=== PATIENT | female | born 1980 | race Caucasian/White ===

== ENCOUNTER → 2018-01-22 09:50 | Outpatient (CLI) | payer OTHER, SELFPAY ==
--- NOTE | 2018-01-22 09:58 | FL_ITS ---
FL upper GI small bowel HISTORY: Diarrhea, sensation of food sitting in throat intermittently ITS.REASON: ESOPHAGEAL SPASM ORDERING PHYSICIAN: Erick Brown MD PATIENT AGE: 37 years Comparison: None FINDINGS: The esophagus, stomach, and duodenum have an unremarkable appearance. Spot films of the cervical esophagus while swallowing show minimal posterior indentation of the barium column at the C5-6 level secondary to ossific spurring at the C5-6 disc space otherwise sulci motility was normal. There is a small sliding hiatal hernia but there is no significant GE reflux seen during the exam. The stomach was well-distended with barium and air and show no intrinsic abnormality. There is no gastric or duodenal ulcer. The duodenal sweep appear normal. There was extremely rapid transit of barium through the small bowel reaching the cecum and ascending colon by the timeout was done with fluoroscopy for the upper GI portion of the exam. The patient was given additional barium and follow-up films showed mildly dilated loops of proximal and mid small bowel. The terminal ileum appear normal and the appendix was opacified with barium and appears normal. There is apparent the ascending and proximal transverse colon. There is mild tenderness to palpation over the ileocecal junction and in the upper mid abdomen.. FLUOROSCOPY TIME : 4 minutes and 27 seconds. IMPRESSION: 1. Minimal posterior indentation of the barium column lower cervical spine secondary to mild focal degenerative change in this could possibly be a cause for symptoms of dysphasia to solid foods 2. Grossly normal-appearing stomach and duodenal bulb 3. Extremity rapid transit of barium through the small bowel which would be consistent with history of diarrhea, mild dilatation of proximal small bowel loops but there is no evidence of wall thickening or other abnormality
== END ==
PROVIDERS: Family Provider Family Medicine; PCP Family Medicine; Visit Provider Family Medicine
DX: K22.4 Dyskinesia of esophagus (principal)
CPT/HCPCS: 74245

== ENCOUNTER → 2018-02-15 12:10 | Outpatient (CLI) | payer OTHER, SELFPAY ==
--- NOTE | 2018-02-15 12:16 | XR_ITS ---
XR chest 2V HISTORY: ITS.REASON: BRONCHITIS ORDERING PHYSICIAN: SILVANO Vidales PATIENT AGE: 37 years COMPARISON: 05/30/2014 FINDINGS: The cardiomediastinal silhouette and pulmonary vascularity are within normal limits. The lungs are clear without infiltrates, suspicious nodules, or pleural effusions. No acute bony abnormalities. IMPRESSION: Negative chest, no acute finding
== END ==
PROVIDERS: PCP Family Medicine; Visit Provider Physician Assistant
DX: J40 Bronchitis, not specified as acute or chronic (principal)
CPT/HCPCS: 71046

== ENCOUNTER → 2018-02-18 08:54 | Outpatient (CLI) | payer OTHER, SELFPAY ==
--- NOTE | 2018-02-18 09:31 | US_ITS ---
US thyroid HISTORY: Right neck mass ITS.REASON: NECK MASS ORDERING PHYSICIAN: Erick Brown MD PATIENT AGE: 37 years Comparison: None FINDINGS: The right lobe is 4.6 x 2.6 x 3.3 cm. A complex mass is present in the mid aspect of the right lobe containing both cystic and solid components and measures 3.3 x 1.9 cm. The left lobe is 4.5 x 1.5 1.6 cm. There is a 6 mm isoechoic nodule in the lower pole on the left. The isthmus has an unremarkable appearance. IMPRESSION: 3 similar complex cystic mass of the right lobe of the thyroid gland. Fine-needle aspiration with ultrasound guidance may be of further value.
== END ==
PROVIDERS: Family Provider Family Medicine; PCP Family Medicine; Visit Provider Family Medicine
DX: R22.1 Localized swelling, mass and lump, neck (principal)
CPT/HCPCS: 76536

== ENCOUNTER → 2018-02-25 14:32 | Outpatient (POV) | payer OTHER, SELFPAY | PROVIDERS: Visit Provider Nurse Practitioner Acute Care | DX: Z00.00 Encounter for general adult medical examination without abnormal findings (principal) ==

== ENCOUNTER → 2018-02-28 09:44 | Outpatient (CLI) | payer OTHER, SELFPAY ==
--- NOTE | 2018-02-28 09:51 | US_ITS ---
FNA w guidance, US thyroid HISTORY: Right thyroid mass ORDERING PHYSICIAN: Erick Brown MD PATIENT AGE: 37 years COMPARISON: 02/18/2018 Prebiopsy ultrasound: Prebiopsy ultrasound once again demonstrates the partially cystic mass involving the right lobe of the thyroid gland in the mid aspect. TECHNIQUE: Following obtaining informed consent, using aseptic technique and local anesthesia with buffered lidocaine, fine-needle aspiration was performed of the nodule of interest using sonographic guidance. 3 passes were made into the nodule with a 25-gauge needle. Specimen was given to cytology. Approximate 5 cc of brownish fluid was aspirated. FNA was performed of the solid portion of the nodule following the aspiration. The patient tolerated the procedure well without evidence of immediate complications and left the ultrasound suite in stable condition. CYTOLOGY:Nondiagnostic specimen. Numerous macrophages consistent with cyst contents, negative for colloid and follicular groups IMPRESSION: Uneventful ultrasound guided FNA of the right thyroid nodule with nondiagnostic cytology demonstrating numerous macrophages consistent with cyst contents FNA could be repeated under sonographic guidance with pathologist present to confirm cytology if clinically warranted
== END ==
PROVIDERS: Family Provider Family Medicine; PCP Family Medicine; Visit Provider Family Medicine
DX: E07.9 Disorder of thyroid, unspecified (principal)
CPT/HCPCS: 10022; 76536

== ENCOUNTER → 2018-03-07 17:06 | Outpatient (CLI) | payer OTHER, SELFPAY ==
[2018-03-07 18:15] LABS: T4 (Thyroxine) 7.4 ug/dl (4.7-13.3); Triiodothryronine (T3) Uptake 40 % (31-39)
[2018-03-09 20:26] LABS: Thyroid Peroxidase Antibodies 10 IU/mL (0-34)
[2018-03-13 10:20] LABS: Thyroid Stimulating Immunoglob <0.10 IU/L (0.00-0.55)
== END ==
PROVIDERS: Family Provider Family Medicine; PCP Family Medicine; Visit Provider Otolaryngology
DX: E04.1 Nontoxic single thyroid nodule (principal)
CPT/HCPCS: 36415; 84436; 84443; 84445; 84479; 86376

== ENCOUNTER → 2018-03-18 15:41 | Outpatient (CLI) | payer OTHER, SELFPAY ==
--- NOTE | 2018-03-18 16:02 | XR_ITS ---
XR chest 2V HISTORY: Cough, smoker ITS.REASON: PREOP THYROIDECTOMY ORDERING PHYSICIAN: Garfield Oakes MD PATIENT AGE: 37 years COMPARISON: 02/15/2018 FINDINGS: The cardiomediastinal silhouette and pulmonary vascularity are within normal limits. The lungs are clear without infiltrates, suspicious nodules, or pleural effusions. A calcified granuloma is present in the right upper lobe. No acute bony abnormalities. IMPRESSION: No change with no acute finding
[2018-03-18 16:12] LABS: Basophils % 0.1 % (0.1-2.0); Eosinophils % 0.1 % (0.1-12.0); Hemoglobin 13.6 g/dL (12.2-16.2); Lymphocytes # 1.4 K/mm3 (0.7-4.5); Mean Corpuscular HGB Conc 32.3 g/dL (31.8-35.4); Mean Corpuscular Hemoglobin 32.4 pg (27.0-31.2); Mean Corpuscular Volume 100.4 fl (81-99); Mean Platelet Volume 6.6 fl (7.4-10.4); Monocytes # 0.5 K/mm3 (0.1-1.0); Neutrophils # 15.4 K/mm3 (1.8-7.8); Neutrophils % 88.9 % (37.0-80.0); Platelet Count 377 K/mm3 (142-424); Red Blood Count 4.18 M/mm3 (4.20-5.40); Red Cell Distribution Width 13.9 % (11.5-17.5); White Blood Count 17.3 K/mm3 (4.8-10.8)
[2018-03-18 16:14] LABS: MANUAL DIFFERENTIAL MANUAL DIFFERENTIAL (MANUAL DIFF)
[2018-03-18 17:36] LABS: Lymphocytes % 8 % (10-50); Monocytes % 3 % (2-9); Neutrophils % 89 % (42-76); Platelet Estimate Normal; RBC Morphology Normal; Total Cells Counted 100
== END ==
PROVIDERS: PCP Family Medicine; Visit Provider Otolaryngology
DX: Z01.818 Encounter for other preprocedural examination (principal); E04.1 Nontoxic single thyroid nodule
CPT/HCPCS: 36415; 71046; 85007; 85025; 93005

== ENCOUNTER → 2018-03-21 14:38 | Outpatient (CLI) | payer OTHER, SELFPAY ==
--- NOTE | 2018-03-21 14:40 | CT_ITS ---
CT soft tissue neck wo/w con INDICATION: Right thyroid mass, neck pain ITS.REASON: neuropathic neck pain ORDERING PHYSICIAN: Garfield Oakes MD PATIENT AGE: 37 years COMPARISON: 02/18/2018 TECHNIQUE: Axial images are obtained without and with 75 mL is Isovue-370 . Sagittal and coronal reformatted images are reviewed as well. The patient was phonating during the exam All CT scans at the facility use one or more dose reduction, viz: automated exposure control, ma/kV adjustment per patient size (including targeted exams where dose is matched to indication, i.e. head), or iterative reconstruction technique. FINDINGS: The nasopharynx has an unremarkable appearance. The uvula and peritonsillar region and epiglottis, glottic region, and subglottic region are unremarkable. A complex cystic mass involves the right lobe of the thyroid gland measuring 3 cm cephalad to caudad, 1.9 cm transverse, and 2.2 cm AP. There is some soft tissue component to the lesion along the inferior aspect. There is very minimal deviation of the thyroid to the left by 2 to 3 mm. The esophagus is midline. No cervical adenopathy. The parotid glands and submandibular glands have an unremarkable appearance. The orbits are unremarkable. The superior mediastinum and lung apices have an unremarkable appearance. IMPRESSION: 1. Complex 3 x 2 x 2 cm cystic mass of the right lobe of the thyroid gland with minimal tracheal deviation to the left of 2 to 3 mm. The esophagus is midline. 2. Otherwise negative CT neck. No adenopathy or other significant anomalies
[2018-03-21 16:20] LABS: Eosinophils % 0.2 % (0.1-12.0); Hematocrit 42.4 % (37.0-47.0); Hemoglobin 13.3 g/dL (12.2-16.2); Lymphocytes # 0.9 K/mm3 (0.7-4.5); Lymphocytes % 4.9 K/mm3 (10-50); Mean Corpuscular HGB Conc 31.3 g/dL (31.8-35.4); Mean Corpuscular Hemoglobin 31.8 pg (27.0-31.2); Mean Corpuscular Volume 101.4 fl (81-99); Mean Platelet Volume 6.4 fl (7.4-10.4); Monocytes # 0.4 K/mm3 (0.1-1.0); Neutrophils # 16.5 K/mm3 (1.8-7.8); Neutrophils % 92.9 % (37.0-80.0); Platelet Count 398 K/mm3 (142-424); Red Blood Count 4.18 M/mm3 (4.20-5.40); Red Cell Distribution Width 14.2 % (11.5-17.5); White Blood Count 17.7 K/mm3 (4.8-10.8)
[2018-03-21 16:28] LABS: MANUAL DIFFERENTIAL MANUAL DIFFERENTIAL (MANUAL DIFF)
[2018-03-21 16:30] LABS: Alanine Aminotransferase 23 U/L (12-78); Albumin Level 3.4 gm/dL (3.4-5.0); Albumin/Globulin Ratio 1.1 (1.1-1.8); Alkaline Phosphatase 51 U/L (46-116); Anion Gap 12.2 mEq/L (5-15); Aspartate Amino Transferase 5 U/L (15-37); Bilirubin,Total 0.1 mg/dL (0.2-1.0); Blood Urea Nitrogen 10 mg/dL (7-18); Calcium 8.9 mg/dL (8.5-10.1); Carbon Dioxide 28 mmol/L (21.0-32.0); Chloride 105 mmol/L (98-107); Creatinine,Serum 0.86 mg/dL (0.55-1.02); Estimated Glomerular Filt Rate 74 ml/min (>60); GFR (African American) 89 ML/MIN (>60); Globulin 3.1 gm/dl (1.3-3.2); Glucose 112 mg/dL (74-106); Potassium 4.2 mmoL/L (3.5-5.1); Sodium 141 mmol/L (136-145); Total Protein,Serum 6.5 gm/dL (6.4-8.2)
[2018-03-21 17:01] LABS: Lymphocytes % 6 % (10-50); Monocytes % 1 % (2-9); Neutrophils % 93 % (42-76); Platelet Estimate Normal; RBC Morphology Normal; Total Cells Counted 100
== END ==
PROVIDERS: Family Provider Family Medicine; PCP Family Medicine; Visit Provider Otolaryngology
DX: M54.2 Cervicalgia (principal); G89.29 Other chronic pain; E06.9 Thyroiditis, unspecified
CPT/HCPCS: 36415; 70492; 80053; 85007; 85025; Q9967

== ENCOUNTER 2018-03-28 07:48 | Observation (INO) ==
[2018-03-28 08:38] LABS: Basophils # 0.1 K/mm3 (0-0.2); Basophils % 0.4 % (0.1-2.0); Eosinophils # 0.3 K/mm3 (0.0-0.4); Eosinophils % 2.1 % (0.1-12.0); Hematocrit 42.4 % (37.0-47.0); Hemoglobin 13.7 g/dL (12.2-16.2); Lymphocytes # 3.7 K/mm3 (0.7-4.5); Mean Corpuscular HGB Conc 32.4 g/dL (31.8-35.4); Mean Corpuscular Hemoglobin 32.3 pg (27.0-31.2); Mean Corpuscular Volume 99.8 fl (81-99); Mean Platelet Volume 6.5 fl (7.4-10.4); Monocytes # 0.6 K/mm3 (0.1-1.0); Monocytes % 4.3 % (1.7-9.3); Platelet Count 427 K/mm3 (142-424); Red Blood Count 4.25 M/mm3 (4.20-5.40); Red Cell Distribution Width 14.6 % (11.5-17.5); White Blood Count 14.7 K/mm3 (4.8-10.8)
--- NOTE | 2018-03-28 08:55 | Progress Note ---
[facility] Anesthesia Checklist - Patient Identification Patient Identification: Arm Band - Structural Data Admitted From: Home Planned Operative Procedure/s: thyroidectomy Consent for Planned Operative Procedure(s) Verified: Yes Verified Documents: Surgical Consent, History and Physical - NPO Status Verified Time NPO: 00:00 - Additional verifications Anesthesia Reactions: No - Airway Assessment C-Spine Mobility Assessed: Yes (mp2) TMJ Mobility Assessed: Yes Dentition: Good Dentition - Neurological Assessment Level of Consciousness: Awake, Alert - Anesthesia Plan Anesthesia Risk discussed: Yes Anesthesia Plan: Verified ASA Class: II Anesthesia Type: General [facility] History I have reviewed the patient's past medical history: Yes Medical History: Reports:: Gastroesophageal Reflux Disease(GERD), Hiatal Hernia Denies:: Cancer, Diabetes Mellitus Type 1, Diabetes Mellitus Type 2, Internal Pacemaker, MRSA, Seizures Other Medical History: Denies: Blood Transfusion Reaction Laterality Cases: Bilateral: Other Other Surgeries: Yes: Cholecystectomy, Tubal Ligation. No: Pacemaker Amputation: No Fractures: No - *Social History Educational Level: Attended College Smoking Status: Current every day smoker Tobacco Type: cigarettes # Packs/Day (cigarettes): 1 Alcohol Intake: never Substance Use Type: denies use Occupational Status: employed Housing: house Household Members: spouse - Psychiatric History Expresses thoughts of harming self/others: None Suicide Plan Description: No Plan *Family Hx:: Hypertension, Hyperlipidemia, Diabetes, Thyroid Disorder, Cancer
--- NOTE | 2018-03-28 11:29 | Progress Note ---
[facility] Anesthesia Record Part I Intake, IV Amount: 1,800 Estimated blood loss (mL): 25 Urine output (mL): 0 Blood Pressure: 158/95 SaO2: 92 Pulse Rate: 111 Respiratory Rate: 12 Temperature: 97.6 F Patient is:: Awake, Stable Stable to PACU at:: 11:25
--- NOTE | 2018-03-28 11:29 | Progress Note ---
[facility] Anesthesia Record Part II Discharge Time: 11:55 Destination: floor PACU nurse assessment reviewed?: Yes Patient Condition:: Good Anesthesia Complications:: None
--- NOTE | 2018-03-28 13:12 | Operative Note ---
Date of procedure: 03/28/18 Pre-op Diagnosis:: Right thyroid neoplasm Post-op Diagnosis:: same Procedure performed:: Total right thyroid lobectomy including substernal portion cervical approach Surgeon:: Garfield Oakes MD SUPERVISOR COMPONENT ASSEMBLER:: Young Stuart Anesthesia: GETA Estimated blood loss (mL): 20 Operative findings:: same Operative note:: With patient under general anesthesia maintained obtained with a nerve monitoring endotracheal tube the shunt was positioned and the neck was prepped with Betadine and draped. An extended thyroid incision was marked out because of the patient's very short neck and obesity as well as because of a large lump that was present in the right lobe. Skin and subcutaneous tissue and platysma were incised the strap muscles were identified as were the anterior jugular veins. The anterior jugular veins were doubly ligated and divided the strap muscles were divided and retracted. The sternomastoid muscles on each side were identified and retracted as well. There was a very large cervical substernal lump which extended into the prevertebral space and cause displacement of the larynx trachea and esophagus to the contralateral left side. The superior vascular pedicle was mobilized doubly ligated and divided. That was done it was possible to disimpact the mass from the prevertebral space as well as from the substernal space and bring it up into the neck. At that point the middle thyroid vein could be accessed it was doubly ligated and divided as was the inferior thyroid veins on the right side and the tube were doubly ligated and divided. The right superior and the right inferior parathyroid glands were identified and retained in situ. The right inferior thyroid artery and the r ecurrent laryngeal nerve on the right side were identified. The recurrent nerve was then traced through to where it entered the larynx and stimulated on the positive fashion on several occasions. Bonilla's ligament was divided in the right lobe was then from the trachea and transected along the medial aspect of the left lobe. The left lobe was then oversewn with 2-0 Vicryl. The Specimen was submitted and reported on frozen section analysis is benign. The neck was thoroughly irrigated, all bleeding was stopped, blood loss was less than 30 cc. Surgicel snow was placed in the prevertebral area on the right side as well as along the medial aspect of the residual left lobe. The strap muscles were then repaired with 2-0 Vicryl. The Platysma and subcutaneous layer which was very thick was repaired with 2-0 Vicryl. A 10-millimeter David-Ryan drain was placed and hooked to suction. A Dermabond dressing was applied and the patient was sent to recovery in good general condition. Condition: stable Disposition: PACU Complications:: none
--- NOTE | 2018-03-28 13:48 | Pharmacy Consult Notes ---
[facility] Pharmacy VTE Monitoring - Patient Demographics Admission date: 03/28/18 Report Date: 03/28/18 Time: 13:48 Allergies/Adverse Reactions: Patient Allergies amoxicillin Allergy (Severe, Verified 03/28/18 08:14) Anaphylaxis azithromycin Allergy (Severe, Verified 03/28/18 08:14) Anaphylaxis Penicillins Allergy (Severe, Verified 03/28/18 08:14) Anaphylaxis Height: 1.63 m Weight: 99.79 kg - VTE Risk Labs: VTE Related Lab Results Hgb 13.7 g/dL (12.2-16.2) 03/28/18 08:19 Hct 42.4 % (37.0-47.0) 03/28/18 08:19 Plt Count 427 K/mm3 (142-424) H 03/28/18 08:19 Clinical Trial Participant: No - Prophylaxis VTE Prophylaxis Ordered?: Yes Types of VTE Prophylaxis: TEDS Knee High
== END 2018-03-29 11:45 | disposition home or self-care (01) ==
LOC: OR 07:48 → 2ND 07:48
PROVIDERS: ADMIT Otolaryngology; ATTEND Otolaryngology

== ENCOUNTER → 2018-05-08 13:22 | Outpatient (CLI) | payer BC, SELFPAY ==
[2018-05-08 16:22] LABS: Free T4 (Free Thyroxine) 1.07 ng/dl (0.76-1.46); Thyroid Stimulating Hormone 1.91 uIU/ml (0.358-3.740)
== END ==
PROVIDERS: Otolaryngology; Visit Provider Internal Medicine
DX: E03.9 Hypothyroidism, unspecified (principal); Z98.890 Other specified postprocedural states
CPT/HCPCS: 36415; 82310; 84439; 84443

== ENCOUNTER → 2018-10-10 10:08 | Outpatient (CLI) | payer BC, SELFPAY ==
[2018-10-10 12:17] LABS: Free T4 (Free Thyroxine) 1.11 ng/dl (0.76-1.46); Thyroid Stimulating Hormone 0.64 uIU/ml (0.358-3.740)
== END ==
PROVIDERS: Visit Provider Otolaryngology
DX: D49.7 Neoplasm of unspecified behavior of endocrine glands and other parts of nervous system (principal); Z98.890 Other specified postprocedural states
CPT/HCPCS: 36415; 84439; 84443

== ENCOUNTER → 2020-05-05 08:31 | Outpatient (CLI) | payer BC, SELFPAY ==
--- NOTE | 2020-05-05 08:40 | XR_ITS ---
PROCEDURE: XR CERVICAL SPINE 5V CLINICAL INDICATION: PAIN IN RT SHOULDER COMPARISON: No exams were available for comparison FINDINGS: There is straightening of the normal curvature suggesting muscle spasm. C1 through C7 appear intact. There is mild disc space narrowing at the C5-6 level. There is minor narrowing of the neural foramina right-sided C5-6 likely due to spurring of the uncinate joints. The remaining neural foramina appear normal bilaterally. Prevertebral soft tissues are normal and the odontoid is normal. IMPRESSION: Minor degenerate change C5-6 as noted along with probable muscle spasm Dictated by: Dr. Keagan Franco MD 05/05/2020 09:13 Dr. Keagan Franco MD in [place] 05/05/2020 09:13
== END ==
PROVIDERS: PCP Family Medicine; Visit Provider Family Medicine
DX: M25.511 Pain in right shoulder (principal)
CPT/HCPCS: 72050

== ENCOUNTER → 2022-05-31 16:22 | Outpatient (CLI) | payer OTHER, SELFPAY ==
--- NOTE | 2022-05-31 16:30 | XR_ITS ---
PROCEDURE INFORMATION: Exam: XR Cervical Spine Exam date and time: 05/31/2022 4:34 PM Age: 41 years old Clinical indication: Neck pain; Patient HX: Pain in neck for several years, pain getting worse TECHNIQUE: Imaging protocol: Radiologic exam of the cervical spine. Views: 2 or 3 views. COMPARISON: CR XR CERVICAL SPINE 5V 05/05/2020 8:50 AM FINDINGS: Bones/joints: Trace retrolisthesis of C4 over C5 no substantial change from prior.Straightening of the cervical lordosis which can be attributed to muscle spasm/contracture.Vertebral alignment is otherwise maintained. No acute fracture. Odontoid process is intact. Atlantoaxial interval is maintained. Facet joints are aligned. Soft tissues: Unremarkable. IMPRESSION: Mild degenerative changes more pronounced at C4-C5. No acute fracture or traumatic subluxation.
== END ==
PROVIDERS: PCP Family Medicine; Visit Provider Physician Assistant
DX: M50.30 Other cervical disc degeneration, unspecified cervical region (principal)
CPT/HCPCS: 72040

== ENCOUNTER → 2022-06-15 13:35 | Outpatient (CLI) | payer OTHER, SELFPAY ==
--- NOTE | 2022-06-15 14:03 | MR_ITS ---
FINAL REPORT CLINICAL HISTORY: RIGHT CERVICAL RADICULOPATHY. RIGHT ARM PAIN, NUMBNESS, AND TINGLING XYRS. HEADACHE BEHIND RIGHT EYE. NO INJURY OR TRAUMA. FINDINGS: Multiplanar MR imaging of the cervical spine was performed without contrast. On the sagittal T2-weighted images, disc degeneration is seen throughout. There is no evidence of fracture. There is mild retrolisthesis of C5 on C6. There is mild kyphosis centered at C5. The cervical spinal cord has an unremarkable appearance without evidence of mass, edema or syrinx. No significant canal stenosis is identified. The cervicomedullary junction is normal. C2-3: There is no significant canal stenosis or neural foraminal narrowing. C3-4: A left paracentral disc protrusion indents the thecal sac. C4-5: An annular disc bulge is present. A right paracentral disc protrusion indents the thecal sac. C5-6: A disc osteophyte complex is present. A right paracentral disc protrusion causes cord contouring. There is moderate right and mild left neural foraminal narrowing and right C6 nerve root impingement. C6-7: A small left paracentral disc protrusion is present. C7-T1: An annular disc bulge is present. IMPRESSION: Multilevel degenerative disc disease and spondylosis with right C6 nerve root impingement and moderate right and mild left neural foraminal narrowing at C5-6. Left paracentral disc protrusion at C3-4 indents the thecal sac. Right paracentral disc protrusion at C4-5 indents the thecal sac. Right paracentral disc protrusion at C5-6 causes cord contouring. Reviewed, Interpreted and Dictated by Benny Monroy III, MD Transcribed by Naz Newton Authenticated and [facility]
== END ==
PROVIDERS: PCP Physician Assistant; Visit Provider Physician Assistant
DX: M54.12 Radiculopathy, cervical region (principal)
CPT/HCPCS: 72141; 76376

== ENCOUNTER 2025-02-20 16:48 | Inpatient (IN) | payer OTHER, SELFPAY ==
--- OUTSIDE RECORDS SUMMARY | 2025-01-28 06:30 | XMS_ITS ---
Author Organization [facility] Address [address] [facility] [address] [place] [id number] Care Team Providers Care Casting Wheel Operator Helper Name Role Phone Gaviota Frazier Unavailable [phone] Allergies Allergen (clinical drug ingredient) Drug/Non Drug Allergy documented on EMR Reaction Allergy Type Onset Date Status amoxicillin Amoxicillin anaphylaxis Drug Allergy A ctive erythromycin Erythromycin anaphylaxis Drug Allergy Active Penicillin anaphylaxis Drug Allergy Acti ve REASON FOR VISIT thinks she's having a nervous breakdown Medications Medication SIG (Take, Route, Frequency, Duration) Notes Start Date End Date Status Euthyrox 88 MCG 1 tab(s) orally once a day; Duration: 30 days Active Ibuprofen 800 MG take 1 tablet orally once a day; Duration: 90 days Active hydrOXYzine HCl 25 MG 1 tab Orally 4 fuad es a day, prn 01/28/2025 Active Famotidine 20 MG 1 tab(s) orally 2 ti mes a day Active Pregabalin 200 MG 1 capsule Orally Two times a day; Duration: 30 days 11/25/2024 Active Cyclobenzaprine HCl 10 MG 1 tablet orall y 3 times a day prn; Duration: 30 days Activ e Escitalopram Oxalate 5 MG 1 tablet Orall y Once a day; Duration: 30 days 01/28/2025 Active Problems Problem Type SNOMED Code ICD Code Onset Dates Problem Status W/U Status Risk Notes Problem Mixed anxiety and depressive disorder (265791029) Depression with anxiety (F41.8) Active confirmed Problem Panic disorder (281218951) Panic attacks (F41.0) Active confirmed Vital Signs Weight 164 lbs 01/28/2025 Blood pressure systolic 140 mm Hg 01/29/20 25 Blood pressure diastolic 80 mm Hg 025 Heart Rate 110 /min 01/28/2025 Height 65 in 01/28/2025 BMI 27.29 kg/m2 01/28/2025 Encounters Encounter Location Date Provider Diagnosis [place] [address] [facility] [address] [facility] [address] [place], [place] [id number] 01/28/2025 Gaviota Frazier Depression with anxi ety F41.8 and Panic attacks F41.0 Assessments Encounter Date Diagnosis (ICD Code) Assessment Notes Treatment Notes Treatment Clinical Notes Section Notes 01/28/2025 Depression with anxiety (ICD-10 - F41.8) Will remain off work until f/u. 01/28/2025 Panic attacks (ICD-10 - F41.0) Plan Of Treatment Medication Medication Name Sig Start Date Stop Date Notes hydrOXYzine HCl 25 MG 1 tab Orally 4 times a day, prn 01/07 Escitalopram Oxalate 5 MG 1 tablet Orall y Once a day; Duration: 30 days 01/28/2025 Treatment Notes Assessment Notes Depression with anxiety Will remain off work until f/u. Next Appt Details Follow Up: 2 Weeks, Reason: Provider Name:Anatoly Vasquez ry, 02/25/2025 10:15:00 AM, [address] [facility] [address] [facility], [address], [place], [id number], Progress Notes * DEMETRIA MEZADOB:1980 ( 44 yo F)Acc No.[id number]:01/28/2025 Progress Notes Patient: VICKY ESCALONACI Provider: SILVANO Anderson :1980 A ge:44 Y S ex:Female Date:01/28/2025 Address:[address] [place] [address] [place], [place], [id number] Subjective: * Chief Complaints: * 1 . Thinks she's having a nervous breakdown. * HPI: H PI: Patient is here today for P t here for nervouus breakdown. Pt states this started in December. Pt states that everything is falling apart. Pt states she is always stressed out. She is having panic attacks and cannot sleep. She is depressed as well.? She has no thoughts of hurting herself.. * ROS: D ERMATOLOGY: no R kam. n o H jeffrey. G ASTROENTEROLOGY: no N ausea. n o V omiting. n o D iarrhea.? U ROLOGY: no D ifficulty urinating. n o B lood in urine. * Medical History: R T Cervical Radiculopathy, Hypothyroidism, GERD. * Surgical History: C holecystectomy 1999, Ectopic 2002, Ectoptic 2006, Tubal Ligation 2006, LT Lobe Thyroidectomy 03/2018. * Family History: F ather: alive, diagnosed with Cancer, Diabetes. M other: alive. 2 son(s) - healthy. . * Social History: C URRENT TOBACCO USE S moking Status: P atient does smoke, p acks per day: 1 ,?Since age of: [age], S moking preference: c igarettes. C affeine: yes, frequency:tea, pop. Home smoke detector use: yes. Marital Status: . Alcohol: No. * Medications: T aking Famotidine 20 MG Tablet 1 tab(s) orally 2 times a day , Taking Pregabalin 200 MG Capsule 1 capsule Orally Two times a day , Taking Ibuprofen 800 MG Tablet take 1 tablet orally once a day , Taking Euthyrox 88 MCG Tablet 1 tab(s) orally once a day , Taking Cyclobenzaprine HCl 10 MG Tablet 1 tablet orally 3 times a day prn , Medication List reviewed and reconciled with the patient * Allergies: P enicillin: anaphylaxis, Amoxicillin: anaphylaxis, Erythromycin: anaphylaxis. Objective: * Vitals: W t: 164, Temp: 97.9, BP: 140/80, HR: 110, Nurse: pe, Ht: 65, BMI:27.29. * Examination: P sychology: General Appearance: N AD. G rooming : a dequate.?Eye contact : m inimal. M ood : a nxious, tearful. H eart: R SR. L ungs:?clear to auscultation. N eurologic Exam: I ntact, gait normal. Assessment: * Assessment: 1. D epression with anxiety - F41.8 (Primary) 2 . P anic attacks - F41.0? Plan: * Treatment: 2. P anic attacks Start hydrOXYzine HCl Tablet, 25 MG, 1 tab, Orally, 4 times a day, prn, 30, Refills 0. * Follow Up: 2 Weeks * Images: Billing Information: * Visit Code: 30843 Office Visit, Est Pt., Level 3. * Procedure Codes: * Electronic signature of SILVANO Beltran on 02/20/2025 at 05:00 PM EDT Sign off status: Pending * Provider: SILVANO Anderson Date: 0 01/28/2025 Generated for Jackelin neal/Rita/eTransmitting on: 0 02/20/2025 05:00 PM EDT History and Physical Notes * HPI (History of Present Illness) Category Sub-Category Detail Notes Category Not es HPI Patient is here today for Pt her e for nervouus breakdown. Pt states this started in December. Pt states that everything is falling apart. Pt states she is always stressed out. She is having panic attacks and cannot sleep. She is depressed as well. She has no thoughts of hurting herself. Examination Category Sub-Category Detail Notes Category Not es Psychology Heart: RSR Lungs: clear to auscultatio n General Appearance: NAD Neurologic Exam: Intact, gait normal Grooming : adequate Eye contact : minimal Mood : anxious, tearful
--- OUTSIDE RECORDS SUMMARY | 2025-02-10 06:49 | XMS_ITS ---
Author Organization [facility] Address [address] [facility] [address] [facility] [address] [place] [id number] Care Team Providers Care Mobile Home Set Up Person Name Role Phone Gaviota Frazier Unavailable [phone] REASON FOR VISIT due jaylan,col Encounters Encounter Location Date Provider [facility] [address] [facility] [address] [place] [id number] 02/10/2025 Gaviota Frazier Encounter for screen ing for malignant neoplasm of breast Z12.31 and Colon cancer screening Z12.11 Assessments Encounter Date Diagnosis (ICD Code) Assessment Notes Treatment Notes Treatment Clinical Notes Section Notes 02/10/2025 Encounter for screening for malignant neoplasm of breast (ICD-10 - Z12.31) 02/10/2025 Colon cancer screening (ICD-10 - Z12.11) Plan Of Treatment Pending Test Test Name Order Date colonoscopy 02/10/2025 Mammogram 02/10/2025 Next Appt Details Provider Name:Anatoly Vasquez ry, 02/25/2025 10:15:00 AM, [address] [facility], [address], [place], [id number], Progress Notes * DEMETRIA PUENTEDOB:1980 ( 44 yo F)Acc No.[id number]:02/10/2025 Patient: DEMETRIA ESCALONA :1980 A ge:44 Y S ex:Female Address:[address], [place], [address] Subjective: * Chief Complaints: * D ue jaylan,col * Medical History: * Surgical History: * Hospitalization/Major Diagno stic Procedure: * Medications: Objective: * Vitals: * Physical Examination: Assessment: * Assessment: 1. E ncounter for screening for malignant neoplasm of breast - Z12.31 (Primary) ?2. C olon cancer screening - Z12.11 Plan: * Treatment: 2.?Colon cancer screening?Imaging: colonoscopy* Scralett Russell 02/17/2025 01:3 0:43 PM EDT >sent to [facility] for referral to [facility] * Procedure Codes: * true * Date: Generated for Jackelin neal/Rita/eTvalentinesmitting on: 0 02/20/2025 05:00 PM EDT
--- OUTSIDE RECORDS SUMMARY | 2025-02-11 06:45 | XMS_ITS ---
Author Organization [facility] Address [address] [facility] [address] [place] [phone] Care Team Providers Care Biology Internship Name Role Phone Gaviota Frazier Unavailable [phone] Anatoly Garcia Unavailable [phone] Allergies Allergen (clinical drug ingredient) Drug/Non Drug [...] Encounter Location Date Provider Diagnosis [place] [address] [place] [phone] 02/11/2025 Anatoly Garcia Unspecified mood [affective] disorder [...] Up: 2 Weeks, Reason: Provider Name:Anatoly Vasquez , 02/25/2025 10:15:00 AM, [address] [facility] [address] [facility], [address], [place], [phone], Progress Notes * DEMETRIA MEZADOB:1980 ( 44 yo F)Acc No.[id number]:02/11/2025 Patient: Bc SUREKHAAYAZDEMETRIA Provider: Varsha Garcia M.D. :1980 A ge:44 Y S ex:Female Date:02/11/2025 Address:[address] [place] [address], [place], [id number] Subjective: * Chief Complaints: * 1 . [...] Temp: 97.7, BP: 130/78, HR: 108, Nurse: kk, Ht: 65, BMI:26.96. * Examination: P sychology: General Appearance: N AD. G rooming : a dequate.?Eye contact : n ormal. M ood : t earful, mood is worse today. Assessment: * Assessment: 1. U nspecified mood [affective] disorder - F39 (Primary) 2 . H ypothyroidism (acquired) - E03.9 3 . B NV 26.0-26.9,adult - Z68.26 Plan: * Treatment: 2. H ypothyroidism (acquired) Refill Euthyrox Tablet, 88 MCG, 1 tab(s), orally, once a day, 30 days, 30, Refills 5. * Procedure Codes: 3 075F SYST BP GE 130 - 139MM HG, 3078F DIAST BP < 80 MM HG * Follow Up: 2 Weeks * Images: Billing Information: * Visit Code: 67297 Office Visit, Est Pt., Level 3. * Procedure Codes: 3075F SYST BP GE 130 - 139MM HG. 3078F DIAST BP < 80 MM HG. * Electronic signature of Nalini Garcia MD on 02/20/2025 at 05:00 PM EDT Sign off status: Pending * Provider: Varsha Garcia M.D. Date: 0 02/11/2025 Generated for Jackelin neal/Rita/Leixesmitting on: 0 02/20/2025 05:00 PM EDT History [...]
[2025-02-20] VITALS (21 sets, daily range): BP systolic 108–146; BP diastolic 71–92; PULSE 85–109; RESP 18–19; TEMP 35.7–36.7; O2SAT 94–100; BMI 30.4; BMI 30.3; BMI 22.9
--- NOTE | 2025-02-20 16:52 | CT_ITS ---
PROCEDURE INFORMATION: Exam: CT Head Without Contrast Exam date and time: 02/20/2025 7:07 PM Age: 44 years old Clinical indication: Other: Decreased mental status post ingestion of meds TECHNIQUE: Imaging protocol: Computed tomography of the head without contrast. Radiation optimization: All CT scans at this facility use at least one of these dose optimization techniques: automated exposure control; mA and/or kV adjustment per patient size (includes targeted exams where dose is matched to clinical indication); or iterative reconstruction. COMPARISON: MR CERVICAL SPINE WO CON 06/15/2022 2:15 PM FINDINGS: Brain: Normal. No hemorrhage. Unremarkable white matter. No mass effect. Cerebral ventricles: No ventriculomegaly. Paranasal sinuses: Visualized sinuses are unremarkable. No fluid levels. Mastoid air cells: Visualized mastoid air cells are well aerated. Bones: Unremarkable. No acute fracture. Soft tissues: Unremarkable. IMPRESSION: No acute intracranial abnormality.
--- NOTE | 2025-02-20 16:53 | ECG_ITS ---
APPROVED REPORT Exam: Resting ECG HR:108 bpm ECG Measurements Heart Rate 108 AXES ME 170 P 61 QRSd 97 QRS 63 QT 302 T 59 QTc 365 Conclusion SINUS TACHYCARDIA POSSIBLE LEFT ATRIAL ENLARGEMENT [-0.1mV P-WAVE IN V1/V2] NONSPECIFIC ST & T-WAVE ABNORMALITY ABNORMAL RHYTHM ECG UNCONFIRMED REPORT Electronically signed by : Eric Wade, 02/20/2025 22:37:58
--- NOTE | 2025-02-20 16:54 | PC.NURSE ---
Dr Wade at bedside. Orders placed per verbal and written protocols
[2025-02-20 17:00] LABS: Lactate Venous 0.8 mmol/L (0.4-2.0); VBG HCO3 23.7 mmol/L (23-30); VBG PCO2 36.7 mmol/L (35-51); VBG PH 7.43 mmol/L (7.31-7.41); VBG PO2 39.0 mmol/L (28-40)
--- OUTSIDE RECORDS SUMMARY | 2025-02-20 17:00 | XMS_ITS | Patient Health Record ---
Author Organization [facility] Address [address] [facility] [address] [place] [address] [place] [phone] Care Team Providers Care Ar Manager Name Role Phone Gaviota Frazier Unavailable [phone] Anatoly Garcia Unavailable [phone] Allergies Allergen (clinical drug ingredient) Drug/Non Drug Allergy documented on EMR Reaction Allergy Type Onset Date Status amoxicillin Amoxicillin anaphylaxis Drug Allergy A ctive erythromycin Erythromycin anaphylaxis Drug Allergy Active Penicillin anaphylaxis Drug Allergy Acti ve Results Component Value Reference Range Notes P-Basic Metabolic Panel (BMP ) Reviewed date:08/19/2024 09:16:06 AM Interpretation: Normal Performing Lab: Notes/Report: Test performed by [facility] [address] [place] [address] , [address], [place] [address] Kush Lakhani MD, Youth Support Worker CLIA: [id number] Sodium 142 135-145 mmol/L Potassium 4.1 3.5-5.3 mmol/L Chloride 105 97-108 mmol/L CO2 28 22-32 mmol/L Glucose 69 65-99 mg/dL BUN 8 6-20 mg/dL Creatinine 0.74 0.50-1.00 mg/dL Calcium 9.4 8.6-10.4 mg/dL eGFR by Creatinine 102 >59 mL/min/1.73m2 P-T4 Free (thyroxine) Reviewed date:08/19/2024 09:16:07 AM Interpretation: Normal Performing Lab: Notes/Report: Test performed by [facility] [address] [place] [address] [address], [place] [address] Kush Lakhani MD, Youth Support Worker CLIA: [id number] Thyroxine Free (free T4) 1.60 0.86-1.76 ng/dL P-Lipid Panel Reviewed date:08/19/2024 09:16:07 AM Interpretation:non-hdl 138 Performing Lab: Notes/Report: Test performed by [facility] [address] [place] [address] , [address], [place] [address] Kush Lakhani MD, Youth Support Worker CLIA: [id number] Cholesterol 197 <200 mg/dL Triglycerides 56 <150 mg/dL HDL Cholesterol 59 >39 mg/dL Cholesterol / HDL Ratio 3.34 0.00-4.44 Ratio Non-HDL Cholesterol 138 <130 mg/dL LDL Cholesterol (Calculation) 127 <130 mg/dL LDL Cholesterol Levels* Less than 100 mg/dL Optimal 100 to 129 mg/dL Near Optimal/ Above Optimal 130 to 159 mg/dL Borderline High 160 to 189 mg/dL High 190 mg/dL and above Very High * Categories as recommended by the 2004 ATPIII guidelines LDL/HDL Ratio 2.1 <3.3 Ratio LDL Cholesterol Patient History Test Date: 08/18/2024 LDL Results: 127 Units: mg/dL % Change: - P-TSH Reviewed date:08/19/2024 09:16:07 AM Interpretation:0.26 Performing Lab: Notes/Report: Test performed by [facility] , [address], [place] [address] Kush Lakhani MD, Youth Support Worker CLIA: [id number] TSH 0.26 0.43-5.25 mU/L Reason For Referral No Information Medications Medication SIG (Take, Route, Frequency, Duration) Notes Start Date End Date Status Escitalopram Oxalate 10 MG 1 tablet Oral ly Once a day; Duration: 30 days 02/11/2025 Active Famotidine 20 MG 1 tab(s) orally 2 ti mes a day Active hydrOXYzine HCl 25 MG 1 tab Orally 4 fuad es a day, prn 01/28/2025 Active QUEtiapine Fumarate 50 MG 1 tablet at be dtime Orally Once a day; Duration: 30 days 02/02/2025 Active Cyclobenzaprine HCl 10 MG 1 tablet orall y 3 times a day prn; Duration: 30 days Active Ibuprofen 800 MG take 1 tablet orally once a day; Duration: 90 days Active Euthyrox 88 MCG 1 tab(s) orally once a day; Duration: 30 days Active Pregabalin 200 MG 1 capsule Orally Two times a day; Duration: 30 days 11/25/2024 Active Immunizations Vaccine Route Administration Date Status Comme nts Tetanus Tdap-Adacel (over 7yrs) Unknown 01/31/2016 Admi nistered Problems Problem Type SNOMED Code ICD Code Onset Dates Problem Status W/U Status Risk Notes Problem Hypothyroidism (09299019) Hypothyroidism (acquired) (E03.9) Active confirmed Problem Cervical radiculopathy (80156881) Cervical radiculopathy (M54.12) Active confirmed Problem Mixed anxiety and depressive disorder (108200919) Depression with anxiety (F41.8) Active confirmed Problem Affective psychosis (969219701) Unspecified mood [affective] disorder (F39) Active confirmed Problem Chronic pain (69931268) Other chronic pain (G89.29) Active confirmed Problem Thyroid nodule (346876680) Thyroid nodule (E04.1) Active confirmed Problem Panic disorder (794621967) Panic attacks (F41.0) Active confirmed Problem Gastroesophageal reflux disease (134177272) Gastroesophageal reflux disease, esophagitis presence not specified (K21.9) Active confirmed Problem Degeneration of cervical intervertebral disc (32210885) Degenerative cervical disc (M50.30) Active confirmed Problem Dysphagia (33184169) Dysphagia, unspecified type (R13.10) Active confirmed Vital Signs Heart Rate 108 /min 02/11/2025 Blood pressure diastolic 78 mm Hg 02/11/2025 Height 65 in 02/11/2025 Blood pressure systolic 130 mm Hg 02/11/2025 Weight 162 lbs 02/11/2025 BMI 26.96 kg/m2 02/11/2025 Encounters Encounter Location Date Provider Diagnosis [facility] [address] [place], [place] [phone] 02/27/2024 Anatoly [place] Cervical radiculopat hy M54.12 ; Other chronic pain G89.29 and Degenerative cervical disc M50.[address] [facility] [address] [place], [place] [phone] 08/18/2024 Anatoly [place] Hypothyroidism (acqu ired) E03.9 ; Gastroesophageal reflux disease, esophagitis presence not specified K21.9 ; Cervical radiculopathy M54.12 and Acute left-sided low back pain without sciatica M54.[address] [facility] [address] [place], [place] [id number] 01/28/2025 Gaviota Crowdy Depression with anxi ety F41.8 and Panic attacks F41.[address] [facility] [address] [place], [place] [id number] 02/11/2025 Anatoly [place] Unspecified mood [affective] disorder F39 ; Hypothyroidism (acquired) E03.9 and BMI 26.0-26.9,adult Z68.[address] [facility] [address] [place], [place] [id number] 02/26/2024 Anatoly [place] Cervical radiculopat hy M54.[address] [facility] [address] [facility] [address] [place], [place] [id number] 05/27/2024 Anatoly [place] Cervical radiculopat hy M54.[address] [facility] [address] [place], [place] [id number] 08/19/2024 Anatoly [place] [facility] [address] [place], [place] [id number] 08/26/2024 Anatoly [place] Cervical radiculopat hy M54.12 [facility] [address] [place], [place] [id number] 11/25/2024 Anatoly [place] Cervical radiculopat hy M54.12 [facility] [address] [place], [place] [id number] 02/02/2025 Anatoly [place] [facility] [address] [place], [place] [id number] 02/03/2025 Gaviota Gavindy [facility] [address] [place], [place] [id number] 02/09/2025 Gaviota Gavinrakan Panic attacks F41.0 and Unspecified mood [affective] disorder F39 [facility] [address] [place], [place] [id number] 02/10/2025 Gaviota Frazier Encounter for screen ing for malignant neoplasm of breast Z12.31 and Colon cancer screening Z12.11 Assessments Encounter Date Diagnosis (ICD Code) Assessment Notes Treatment Notes Treatment Clinical Notes Section Notes 02/26/2024 Cervical radiculopathy (ICD-10 - M54.12) 02/27/2024 Cervical radiculopathy (ICD-10 - M54.12) 02/27/2024 Other chronic pain (ICD-10 - G89.29) 05/27/2024 Cervical radiculopathy (ICD-10 - M54.12) 08/18/2024 Hypothyroidism (acquired) (ICD-10 - E03.9) 08/18/2024 Gastroesophageal reflux disease, esophagitis presence not specified (ICD-10 - K21.9) 08/26/2024 Cervical radiculopathy (ICD-10 - M54.12) 11/25/2024 Cervical radiculopathy (ICD-10 - M54.12) 01/28/2025 Depression with anxiety (ICD-10 - F41.8) Will remain off work until f/u. 01/28/2025 Panic attacks (ICD-10 - F41.0) 02/09/2025 Panic attacks (ICD-10 - F41.0) 02/10/2025 Colon cancer screening (ICD-10 - Z12.11) 02/10/2025 Encounter for screening for malignant neoplasm of breast (ICD-10 - Z12.31) 02/11/2025 Hypothyroidism (acquired) (ICD-10 - E03.9) 02/11/2025 Unspecified mood [affective] disorder (ICD-10 - F39) 02/11/2025 BMI 26.0-26.9,adult (ICD-10 - Z68.26) 02/09/2025 Unspecified mood [affective] disorder (ICD-10 - F39) 08/18/2024 Cervical radiculopathy (ICD-10 - M54.12) 02/27/2024 Degenerative cervical disc (ICD-10 - M50.30) 08/18/2024 Acute left-sided low back pain without sciatica (ICD-10 - M54.50) Home exercise program provided to patient Plan Of Treatment Pending Test Test Name Order Date colonoscopy 02/10/2025 Mammogram 02/10/2025 Next Appt Details Provider Name:Anatoly Vasquez ry, 02/25/2025 10:15:00 AM, [address], [address], [place], [place], [id number], Insurance Providers Payer Name Payer Address Payer Phone Subscriber Number Group Number Insured Name Patient Relationship to Insured Coverage Start Date Coverage End Date [employer] [facility] [address] [place], [place] [id number] DEMETRIA PUENTE Self - patient is the insured Medications Administered Medication Instructions Date of Administration Dosage Notes Depo- Medrol 40 mg/ml 03/23/2015 1.5 mL Giv en by Anaya Felix [facility] (General) History Medical History History ICD Code RT Cervical Radiculopathy Hypothyroidism GERD Surgical History Surgery Date(Month/Year) Cholecystectomy 1999 Ectopic 2002 Ectoptic 2006 Tubal Ligation 2006 LT Lobe Thyroidectomy 03/2018 Hospitalization History Reason Date(Month/Year)
[2025-02-20 17:01] LABS: Hematocrit 35.5 % (37.0-47.0); Hemoglobin 12.6 g/dL (12.2-16.2); Immature Granulocytes % 0.3 %; Mean Corpuscular HGB Conc 35.5 g/dL (31.8-35.4); Mean Corpuscular Hemoglobin 32.6 pg (27.0-31.2); Mean Corpuscular Volume 91.7 fl (81-99); Nucleated Red Blood Cells % 0 %; Platelet Count 357 K/mm3 (142-424); Red Blood Count 3.87 M/mm3 (4.20-5.40); Red Cell Distribution Width-SD 44.4 fL; White Blood Count 7.8 K/mm3 (4.8-10.8)
--- NOTE | 2025-02-20 17:01 | HMH.EDGENADL ---
Discharge Plan Disposition Patient Disposition: Admitted Prescriptions Prescriptions: No Action sucralfate [Carafate] 1 gram tablet 1 g PO QACHS famotidine 20 mg tablet 20 mg PO BID metoclopramide HCl [Reglan] 5 mg tablet 5 mg PO QID hyoscyamine sulfate 0.125 mg tablet, sublingual 0.125 mg SUBLINGUAL QID gabapentin 300 mg capsule 300 mg PO TID levothyroxine [Synthroid] 100 mcg tablet 100 mcg PO DAILY Qty: 90 2RF Referrals Follow up/Referrals: Provider,Referral, MD [Primary Care Provider, Medical] - See instructions Clinical Impressions Clinical Impression: Drug overdose, Suicide attempt by multiple drug overdose, Hypokalemia, Respiratory failure, Amphetamine abuse, Marijuana abuse Instructions Patient Instructions: Subjective Opioid Withdrawal Scale (SOWS) Print Language Print Language: Syrian Discharge ED Provider: Eros Wade General Adult HPI General Chief complaint: Overdose Stated complaint: overdose on home meds Time Seen by Provider: 02/20/25 16:56 History of Present Illness HPI narrative: 44-year-old brought in by EMS for unintentional overdose suicide attempt. She had empty bottles of quetiapine and cyclobenzaprine and pregabalin all with different fill dates. Unknown how much of these she took and if she took anything else as well. She was more awake and alert according to EMS when they first got to her and she would arouse and have normal conversations with sternal rub but is significantly worsened since that time and history is limited at the moment given her clinical status. 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 Therefore at the moment we believe this was an intentional suicide attempt. No further history able to be obtained. Related Data Home Medications ?Medication ?Instructions ?Recorded ?Confirmed famotidine 20 mg tablet 20 mg PO BID stomach 03/18/18 10/14/18 gabapentin 300 mg capsule 300 mg PO TID nerve pain 03/18/18 10/14/18 hyoscyamine sulfate 0.125 mg 0.125 mg sublingual QID STOMACH 03/18/18 10/14/18 sublingual tablet metoclopramide HCl 5 mg tablet 5 mg PO QID bowels 03/18/18 10/14/18 (Reglan) sucralfate 1 gram tablet (Carafate) 1 g PO QACHS stomach 03/18/18 10/14/18 Previous Rx's ?Medication ?Instructions ?Recorded levothyroxine 100 mcg tablet 100 mcg PO DAILY #90 tabs 10/14/18 (Synthroid) Allergies Allergy/AdvReac Type Severity Reaction Status Date / Time amoxicillin Allergy Severe Anaphylaxis Verified 10/14/18 12:40 azithromycin Allergy Severe Anaphylaxis Verified 10/14/18 12:40 Penicillins Allergy Severe Anaphylaxis Verified 10/14/18 12:40 [facility] Disclaimer: The information contained in this section may have been updated after the patient was seen, as this information can be updated by other users. Social History Smoking Status: Unknown if ever smoked alcohol intake: never substance use type: denies use current occupational status: employed Travel in the last 8 weeks?: None household members: spouse housing: house current occupation: [employer] current occupational exposures/hazards: No caffeine: No Have you lived/traveled outside [place] in past 30 days?: No Contact w/someone who lives/traveled outside US past 30 days?: No Exposure to someone with infectious disease in past 14 days?: No Do you have a fever (greater than 100.4 F or 38 C)?: No Have you tested positive for COVID-19?: No Exposed to someone with COVID-19 in past 14 days?: No Do you have a sore throat?: No Do you have a cough?: No Do you have any weakness?: No Do you have any diarrhea?: No Are you experiencing any unusual bleeding?: No Do you have any muscle aches/pain?: No Do you have any abdominal pain?: No Are you experiencing loss of taste or smell?: No Other Medical History Have you received the Flu Vaccine for this season: No Have you received the Pneumonia Vaccine: No ROS Obtained: Yes All systems reviewed & no additional complaints except as documented Physical Exam General General appearance: obtunded Respiratory Respiratory exam: Present normal lung sounds bilaterally Cardiovascular Cardiovascular exam: Present regular rate Neurological Exam Neurological exam: Present alert and oriented X3 Expanded Neurological Exam Coma scale eye opening: To pain Coma scale motor response: Localizes to pain Coma scale verbal response: Incomprehensible Coma scale total: 9 Medical Decision Making Medical Records Screening: Per USPSTF and CDC recommendations, given the prevalence of disease in our region, it is our hospital?s policy to screen for HIV and viral Hepatitis for all patients aged 18 and over and those with ongoing risk factors. Theodore Inquiry Pt receiving controlled substance: No Vital Signs: 02/20/25 17:00 02/20/25 17:15 02/20/25 17:30 Temperature 98.1 F Temperature Source Tympanic Pulse Rate 108 H 99 H Pulse Rate [Right] 109 H Respiratory Rate 19 19 18 Blood Pressure 143/81 H 127/82 Blood Pressure [Right Arm] 143/81 H Blood Pressure Mean [Right Arm] 101 Blood Pressure Source [Right Arm] Automatic Cuff Blood Pressure Position [Right Arm] Supine 02 Sat by Pulse Oximetry 94 L 94 L 100 Oxygen Delivery Method Mechanical Ventilation Room Air Mechanical Ventilation Fraction of Inspired Oxygen 02/20/25 17:35 02/20/25 18:00 02/20/25 18:11 Temperature Temperature Source Pulse Rate 98 H 98 H Pulse Rate [Right] Respiratory Rate 18 18 18 Blood Pressure 138/90 142/90 H Blood Pressure [Right Arm] Blood Pressure Mean [Right Arm] Blood Pressure Source [Right Arm] Blood Pressure Position [Right Arm] 02 Sat by Pulse Oximetry 100 100 100 Oxygen Delivery Method Mechanical Ventilation Mechanical Ventilation Fraction of Inspired Oxygen 50 02/20/25 18:16 02/20/25 18:30 Temperature Temperature Source Pulse Rate 98 H 99 H Pulse Rate [Right] Respiratory Rate 18 18 Blood Pressure 133/91 H 143/92 H Blood Pressure [Right Arm] Blood Pressure Mean [Right Arm] Blood Pressure Source [Right Arm] Blood Pressure Position [Right Arm] 02 Sat by Pulse Oximetry 100 100 Oxygen Delivery Method Mechanical Ventilation Mechanical Ventilation Fraction of Inspired Oxygen Lab Data Lab results reviewed: Yes I reviewed the patient's lab results. Lab Results 02/20/25 16:53: VBG pH 7.43 H, VBG pCO2 36.7, VBG pO2 39.0, VBG HCO3 23.7, VBG Total CO2 24.8, VBG O2 Saturation 75.1 H, VBG Base Excess -0.6, VBG Lactic Acid 0.8 02/20/25 16:54: WBC 7.8, RBC 3.87 L, Hgb 12.6, Hct 35.5 L, MCV 91.7, MCH 32.6 H, MCHC 35.5 H, RDW 13.2, Plt Count 357, MPV 9.4, Neut % (Auto) 73.1, Lymph % (Auto) 19.4, [place] % (Auto) 5.5, Eos % (Auto) 1.1, Baso % (Auto) 0.6, Neut # (Auto) 5.7, Lymph # (Auto) 1.5, [place] # (Auto) 0.4, Eos # (Auto) 0.1, Baso # (Auto) 0.1, Sodium 143, Potassium 2.5 L*, Chloride 111 H, Carbon Dioxide 25, Anion Gap 9.5, BUN 11, Creatinine 0.50 L, Estimated Creat Clear 203, Estimated GFR 133, Est GFR ( Amer) 161, Glucose 105 H, Calcium 9.0, Magnesium 1.9, Total Bilirubin 0.6, AST 28, ALT 20, Alkaline Phosphatase 59, Total Creatine Kinase 151 H, Total Protein 6.8, Albumin 4.0, Globulin 2.8, Albumin/Globulin Ratio 1.4, Serum HCG, Qual Negative, Salicylates < 1.0 L, Acetaminophen < 10 L, Plasma/Serum Alcohol < 10 02/20/25 17:01: Urine Color Yellow, Urine Appearance Clear, Urine pH 6.5, Ur Specific [place] <= 1.005, Urine Protein Negative, Urine Glucose (UA) Negative, Urine Ketones Negative, Urine Blood Negative, Urine Nitrate Negative, Urine Bilirubin Negative, Urine Urobilinogen 0.2, Ur Leukocyte Esterase Negative, Urine RBC None, Urine WBC Occasional, Ur Squamous Epith Cells 3-5, Urine Bacteria 1+, Urine Opiates Screen Negative, Urine Methadone Screen Negative, Ur Barbituates Screen Negative, Ur Phencyclidine Scrn Negative, Ur Amphetamines Screen Positive H, U Benzodiazepines Scrn Negative, Urine Cocaine Screen Negative, U Marijuana (THC) Screen Positive H 02/20/25 19:23: Specimen Source Left radial, O2 % 40, ABG pH 7.47 H, ABG pCO2 36.9, ABG pO2 158.3 H, ABG HCO3 26.3 H, ABG Total CO2 27.4 H, ABG O2 Saturation 99, ABG Base Excess 2.6 H, Kwame Test Patient unable, Vent Rate 18, Tidal Volume 410, PEEP 5 02/20/25 16:54 02/20/25 16:54 Orders (Tests/Meds): ED MEDICATIONS Generic Name Dose Route Start Last Admin Trade Name Leightonq PRN Reason Stop Dose Admin Propofol 100 mls @ 2.722 mls/hr 02/20/25 17:30 02/20/25 18:13 Diprivan 10mg/Ml 100ml Bottle IV 03/22/25 17:29 15 mcg/kg/min .Q24H HERON 8.17 mls/hr Protocol Titration 5 MCG/KG/MIN Potassium Chloride/Water 100 mls @ 100 mls/hr 02/20/25 17:45 Potassium Chloride 10meq/100ml Ivpb IV 02/20/25 20:44 Q1H HERON Sodium Chloride 3 ml 02/20/25 17:42 Sodium Chloride 3% 15ml Neb IH 03/22/25 17:41 ONCE PRN INDUCE SPUTUM COLLECTION Discontinued Medications Generic Name Dose Route Start Last Admin Trade Name Gus PRN Reason Stop Dose Admin Etomidate 20 mg 02/20/25 17:14 02/20/25 17:19 Etomidate 40mg/20ml Vial IV 02/20/25 17:15 20 mg ONCE ONE Administration Succinylcholine Chloride 100 mg 02/20/25 17:14 02/20/25 17:19 Succinylcholine 20mg/Ml 10 Ml Mdv IV 02/20/25 17:15 100 mg ONCE ONE Administration ORDERS Category Date Time Status CT head/brain wo con Stat Cat Scan 02/20/25 16:52 Completed Consult Cell Tender Helper [CONS] Routine Cons 02/20/25 18:24 Active Consult to Behavioral Health [CONS] Stat Cons 02/20/25 18:28 Active Pulmonology Consult [Consult to Pulmonology] [CONS] Cons 02/20/25 19:33 Active Stat CXR --portable [XR chest portable] Stat Exams 02/20/25 17:23 Completed KUB (single view) [XR KUB] Stat Exams 02/20/25 18:35 Completed Acetaminophen Stat Lab 02/20/25 16:54 Completed CK [Creatine Kinase] Stat Lab 02/20/25 16:54 Completed Complete Blood Count Auto Diff Stat Lab 02/20/25 16:54 Completed Comprehensive Metabolic Panel Stat Lab 02/20/25 16:54 Completed Drug Screen,Urine Stat Lab 02/20/25 17:01 Completed Ethyl Alcohol Stat Lab 02/20/25 16:54 Completed HCG Qualitative, Serum Stat Lab 02/20/25 16:54 Completed HIV Combo Stat Lab 02/20/25 16:54 Received Hepatitis C Ab Qual. W/ RFX Stat Lab 02/20/25 16:54 Received Magnesium Stat Lab 02/20/25 16:54 Completed Salicylate Stat Lab 02/20/25 16:54 Completed Urinalysis and Microscopic Stat Lab 02/20/25 17:01 Completed VBG PH Stat Lab 02/20/25 16:52 Stop Req Sputum Culture & Gram Stain Routine Micro 02/20/25 17:40 Received ABG [Arterial Blood Gas] Routine RT 02/20/25 19:23 Completed Venous Blood Gas Stat RT 02/20/25 16:53 Completed Medical Decision Narrative: Patient with above history and physical she is currently maintaining her airway but her GCS is 9 and she seems to be quickly worsening. Will reassess her in a few minutes she likely will need to be intubated. We are discussing the case with poison control and supportive care is ongoing at the moment she is hemodynamically stable. Reassessment at 5:10 PM patient was getting worse from a clinical standpoint and her mental status is now worse GCS is around 4-6 at this point the decision was made to intubate for airway protection. Patient was successfully intubated. We discussed the case with poison control and supportive care largely. Patient will need to be admitted for medical clearance and ultimately will need psychiatric intervention once she is cleared from this emergent medical situation. Chest x-ray was performed which I personally interpreted which shows endotracheal tube in appropriate location just above the ju bilateral lungs are appropriately aerated no other focal consolidation or abnormality noted Reassessment 736 patient remains very stable on minimal vent settings. Potassium was low and is being replaced. CT scan of the patient's head has been performed that I personally interpreted shows no intracranial abnormalities. I discussed the case with Dr. Garcia as she is one of his patients and we will admit the patient for further vent management and medical support until her drugs metabolized and she can be extubated at which point she will need to be remaining on a hold and transferred to a psychiatric hospital. Family is aware and agreeable to this plan. Procedures Intubation Mallampati Score:: Class I sedative: Etomidate Mg Given: 20 paralytic: Succinylcholine Mg Given: 100 Laryngoscope: fiber optic video scope (mac 3 ) ET Tube Size: 7.5 ET Tube Uncuffed: Yes Tube Secured Depth (cm): 22 Tube Placement Confirmation: visualized tube passing through cords, equal breath sounds bilaterally, no breath sounds over epigastrium and confirmation by capnometry Patient Tolerated Procedure: well Intubation Complications: none Critical Care Critical Care Time Critical Care Time: Yes Attestation: On 02/20/25, the high probability of a clinically significant, sudden or life threatening deterioration of the following system(s) required my full and direct attention, intervention and personal management. The time I documented below is in addition to time spent performing reported procedures but includes the following listed in this critical care notation. Total Time Total Critical Care Time: 65
[2025-02-20 17:04] LABS: Microscopic, Urine URINE MICROSCOPIC (MICROSCOPIC)
[2025-02-20 17:07] LABS: Albumin Level 4.0 g/dl (3.5-5.0); Chloride 111 mmol/L (98-107)
[2025-02-20 17:08] LABS: Sodium 143 mmol/L (136-145)
[2025-02-20 17:09] LABS: Bilirubin,Urine Negative (Negative); Color,Urine YELLOW (Yellow); Glucose,Urine (UA) Negative (Negative); Ketones,Urine Negative (Negative); Leukocyte Esterase,Urine Negative (Negative); PH,Urine 6.5 (5.0-8.5); Protein,Urine Negative (Negative); Specific Gravity, Urine <= 1.005 (1.005-1.030); Urobilinogen,Urine 0.2 EU/dl (0.2)
[2025-02-20 17:10] LABS: Alanine Aminotransferase 20 U/L (12-78); Aspartate Amino Transferase 28 U/L (14-36); Blood Urea Nitrogen 11 mg/dl (7-17); Creatinine Clearance Estimated 203 mL/min (50-200); Creatinine,Serum 0.50 mg/dl (0.52-1.04); Estimated Glomerular Filt Rate 133 ml/min (>60); GFR (African American) 161 ML/MIN (>60)
[2025-02-20 17:11] LABS: Albumin/Globulin Ratio 1.4 (1.1-1.8); Alkaline Phosphatase 59 U/L (38-126); Anion Gap 9.5 mEq/L (5-15); Bilirubin,Total 0.6 mg/dl (0.2-1.3); Calcium 9.0 mg/dl (8.4-10.2); Carbon Dioxide 25 mmol/L (22.0-30.0); Globulin 2.8 g/dL (1.3-3.2); Glucose 105 mg/dl (74-100); Total Protein,Serum 6.8 g/dl (6.3-8.2)
[2025-02-20 17:13] LABS: Acetaminophen < 10 ug/ml (10-30); Salicylate < 1.0 mg/dL (2.0-20.0)
[2025-02-20 17:14] LABS: Potassium 2.5 mmoL/L (3.5-5.1)
[2025-02-20] MEDS: ETOMIDATE 40MG/20ML VIAL 20 MG IV (17:19)
[2025-02-20] MEDS: SUCCINYLCHOLINE 20MG/ML 10 ML MDV 100 MG IV (17:19)
[2025-02-20 17:21] LABS: HCG Qualitative, Serum Negative (Negative)
[2025-02-20 17:21] LABS: Barbiturates Screen,Urine Negative ng/ml (<200)
[2025-02-20 17:22] LABS: Benzodiazepines Screen,Urine Negative ng/ml (<200)
[2025-02-20 17:23] LABS: Amphetamine/Metha Screen,Urine Positive ng/ml (<1000); Bacteria,Urine 1+ /lpf; Methadone Screen,Urine Negative ng/ml (<300); WBC,Urine Occasional #/hpf (0-3)
--- NOTE | 2025-02-20 17:23 | XR_ITS ---
PROCEDURE INFORMATION: Exam: XR Chest Exam date and time: 02/20/2025 5:31 PM Age: 44 years old Clinical indication: Device placement; Ett placement (vent status); Additional info: Post intubation TECHNIQUE: Imaging protocol: Radiologic exam of the chest. Views: 1 view. COMPARISON: CR CXR2V XR chest 2V 03/18/2018 4:13 PM FINDINGS: Tubes, catheters and devices: Endotracheal tube terminates at the level of the clavicles. Lungs: Unremarkable. No consolidation. Pleural spaces: Unremarkable. No pleural effusion. No pneumothorax. Heart/Mediastinum: Unremarkable. No cardiomegaly. Bones/joints: Unremarkable. IMPRESSION: Endotracheal tube terminates at the level of the clavicles.
[2025-02-20 17:25] LABS: Opiate Screen,Urine Negative ng/ml (<300)
[2025-02-20 17:26] LABS: Phencyclidine Screen,Urine Negative ng/ml (<25)
[2025-02-20 17:28] LABS: Creatine Kinase 151 U/L (30-135); Magnesium 1.9 mg/dl (1.6-2.3)
--- NOTE | 2025-02-20 17:30 | PC.NURSE ---
pt successfully intubated with 7.[address] Wade at 1721. ETT is 22cm at the teeth. bilat breath sounds auscultated and color change noted by RT.
--- NOTE | 2025-02-20 18:25 | PEERSUPPORT ---
Peer Support Note Patient Information Patient Information: DOS: 02/20/2025 ? Pt intubated upon arrival; suspected suicide attempt involving home medications. ? History provided by (in triage room with Dr. Wade): -Bizarre behaviors and not sleeping - Concerns of mental health issues since December 19, when they came back from vacation?visiting family.? -Pt called last week on cell phone said she was going to end it all he was not sure what to do or what she meant at the time. -Concerned of illicit meth use. ? Son (Jamshid) at bedside, supportive and concerned of his mother's wellbeing. -Reported on Sunday02/18/2025, he had contacted the courts to have a psych evaluation. ? Ps provided support to family members, as well as ongoing support with contact information for reaching out for treatment referrals and resources. Ps will continue to monitor pt, on 02/21/2025 by phone call to hospital. ?
--- NOTE | 2025-02-20 18:35 | XR_ITS ---
PROCEDURE INFORMATION: Exam: XR Abdomen Exam date and time: 02/20/2025 7:13 PM Age: 44 years old Clinical indication: Device placement; Gi device; Nasogastric tube; Additional info: Og placement TECHNIQUE: Imaging protocol: Radiologic exam of the abdomen. Views: Frontal supine view of the abdomen. 1 View. COMPARISON: CR XR CHEST PORTABLE 02/20/2025 5:31 PM FINDINGS: Tubes, catheters and devices: Surgical clips overlie the gallbladder fossa. The enteric tube follows the course of the esophagus with the tip and side port terminating at the gastric bubble. Gastrointestinal tract: Normal. No bowel dilation. Organs: Dodd catheter terminates within the bladder. Bones/joints: Unremarkable. IMPRESSION: The enteric tube follows the course of the esophagus with the tip and side port terminating at the gastric bubble.
--- NOTE | 2025-02-20 18:37 | PC.NURSE ---
17:17-Dr. Wade and respiratory at pt's bedside. 17:19- Amidate 20mg IV given and flushed. 17:20- Anectine 100mg IV given and flushed. 17:21- pt intubated with 7 1/2 mac blade. 22 at the teeth. 17:23- Radiology at bedside. 17:26- Propofol 5mcg IV started. 17:30- X-ray performed by radiology to check ET placement. 17:36- Family at bedside.
--- NOTE | 2025-02-20 18:38 | PC.NURSE ---
I called radiology and spoke to Shalini inquiring about the pts scans. Shalini states will be next to scan.
--- NOTE | 2025-02-20 18:57 | PC.NURSE ---
OG inserted by WAYNE Li.
--- NOTE | 2025-02-20 19:01 | PC.NURSE ---
pt going for CT at this time via bed via [place] and RN
[2025-02-20 19:24] LABS: ABG HCO3 26.3 mmhg (22.0-26.0); ABG PCO2 36.9 mmhg (35.0-45.0); ABG PH 7.47 mmol/L (7.35-7.45); ABG PO2 158.3 mmhg (80-100); ABG TCO2 27.4 mmhg (23-27)
[2025-02-20 19:26] LABS: PEEP 5; Source Left Radial
[2025-02-20 19:36] LABS: Hepatitis C Ab Qual. W/ RFX NEGATIVE (Negative)
--- NOTE | 2025-02-20 19:58 | PC.NURSE ---
report called to [facility] RN
--- NOTE | 2025-02-20 20:32 | PC.NURSE ---
Pt arrived via stretcher to ICU @2014
--- NOTE | 2025-02-20 20:55 | PC.NURSE ---
Per engine house helper pt does not need to be one on one while on the vent
[2025-02-20] MEDS: D5W/0.9% NaCl w/40mEq KCL 1,000 ML 75 ML IV (22:44)
[2025-02-21] VITALS (54 sets, daily range): BP systolic 105–161; BP diastolic 68–96; PULSE 81–98; RESP 16–18; TEMP 35.6–37; O2SAT 95–100; BMI 25.6
--- NOTE | 2025-02-21 01:49 | PC.NURSE ---
Deloris from poison control called for an update on pt. They requested a full set of vitals and asked how the pt was doing.
[2025-02-21 07:49] LABS: Nucleated Red Blood Cells % 0 %
[2025-02-21 07:57] LABS: Chloride 114 mmol/L (98-107); Sodium 144 mmol/L (136-145)
[2025-02-21 07:58] LABS: Hematocrit 31.3 % (37.0-47.0); Immature Granulocytes % 0.3 %; Mean Corpuscular HGB Conc 36.1 g/dL (31.8-35.4); Mean Corpuscular Hemoglobin 33.0 pg (27.0-31.2); Mean Corpuscular Volume 91.5 fl (81-99); Platelet Count 311 K/mm3 (142-424); Red Blood Count 3.42 M/mm3 (4.20-5.40); Red Cell Distribution Width-SD 45.1 fL; White Blood Count 10.3 K/mm3 (4.8-10.8)
[2025-02-21 08:00] LABS: Anion Gap 7.5 mEq/L (5-15); Blood Urea Nitrogen 8 mg/dl (7-17); Calcium 8.6 mg/dl (8.4-10.2); Carbon Dioxide 25 mmol/L (22.0-30.0); Creatinine Clearance Estimated 172 mL/min (50-200); Creatinine,Serum 0.50 mg/dl (0.52-1.04); Estimated Glomerular Filt Rate 133 ml/min (>60); GFR (African American) 161 ML/MIN (>60); Glucose 96 mg/dl (74-100); Hemoglobin 11.3 g/dL (12.2-16.2)
[2025-02-21 08:08] LABS: Potassium 2.5 mmoL/L (3.5-5.1)
--- NOTE | 2025-02-21 08:52 | EXP.HP ---
History of Present Illness *Admission Date: 02/20/25 *Reason for visit:: AMS/drug overdose *History of present illness: Ms. Puente is a 44 year old patient of [facility] who was brought to [facility] ER yesterday for altered mental status after an intentional drug overdose. Her significant other states she had indicated she wanted to and then took a mixture of medications, including Lyrica, Lexapro and Flexeril. It is unclear if she took any other medications. Patient had been seen in the office a few times over the last month due to worsening depression. An atypical antipsychotic medication was prescribed but her insurance company refused to pay for the medication. The prior authorization stated that no atypical antipsychotics would be covered for adjunctive therapy for depression treatment. [facility] Disclaimer: The information contained in this section may have been updated after the patient was seen, as this information can be updated by other users. Medical History (Updated 02/21/25 @ 09:00 by Anatoly Garcia MD) Depressive disorder Cervical radiculopathy Hypothyroidism Acid reflux Surgical History Hx of thyroidectomy Social History Smoking Status: Unknown if ever smoked alcohol intake: never substance use type: denies use current occupational status: employed Travel in the last 8 weeks?: None household members: spouse housing: house current occupation: [employer] current occupational exposures/hazards: No caffeine: No Have you lived/traveled outside [place] in past 30 days?: No Contact w/someone who lives/traveled outside US past 30 days?: No Exposure to someone with infectious disease in past 14 days?: No Do you have a fever (greater than 100.4 F or 38 C)?: No Have you tested positive for COVID-19?: No Exposed to someone with COVID-19 in past 14 days?: No Do you have a sore throat?: No Do you have a cough?: No Do you have any weakness?: No Do you have any diarrhea?: No Are you experiencing any unusual bleeding?: No Do you have any muscle aches/pain?: No Do you have any abdominal pain?: No Are you experiencing loss of taste or smell?: No Other Medical History Have you received the Flu Vaccine for this season: No Have you received the Pneumonia Vaccine: No Review of Systems Review of Systems Review of systems:: unable to obtain (patient is intubated) Meds Home Medications and Allergies Home Medications ?Medication ?Instructions ?Recorded ?Confirmed ?Type famotidine 20 mg tablet 20 mg PO BID stomach 03/18/18 02/20/25 History gabapentin 300 mg capsule 300 mg PO TID nerve pain 03/18/18 02/20/25 History hyoscyamine sulfate 0.125 mg 0.125 mg sublingual QID STOMACH 03/18/18 02/20/25 History sublingual tablet metoclopramide HCl 5 mg tablet 5 mg PO QID bowels 03/18/18 02/20/25 History (Reglan) sucralfate 1 gram tablet (Carafate) 1 g PO QACHS stomach 03/18/18 02/20/25 History levothyroxine 100 mcg tablet 100 mcg PO DAILY #90 tabs 10/14/18 02/20/25 Rx (Synthroid) cyclobenzaprine 10 mg tablet 10 mg PO TID 02/21/25 02/21/25 History pregabalin 200 mg capsule 200 mg PO BID 02/21/25 02/21/25 History quetiapine 50 mg tablet 50 mg PO HS 02/21/25 02/21/25 History New Prescriptions to Start Prescriptions: Allergies Allergy/AdvReac Type Severity Reaction Status Date / Time amoxicillin Allergy Severe Anaphylaxis Verified 10/14/18 12:40 azithromycin Allergy Severe Anaphylaxis Verified 10/14/18 12:40 Penicillins Allergy Severe Anaphylaxis Verified 10/14/18 12:40 Exam Data for Last 24 hours Vital signs and Labs for Last 24 Hours: Temp Pulse Resp BP Pulse Ox O2 Del Method O2 Flow Rate 98.2 F 86 18 109/69 L 96 Mechanical Ventilation 18 02/21/25 08:15 02/21/25 08:15 02/21/25 08:15 02/21/25 08:00 02/21/25 08:15 02/21/25 08:00 02/21/25 08:00 FiO2 21 02/21/25 08:00 Laboratory Results - last 24 hr 02/20/25 16:53: VBG pH 7.43 H, VBG pCO2 36.7, VBG pO2 39.0, VBG HCO3 23.7, VBG Total CO2 24.8, VBG O2 Saturation 75.1 H, VBG Base Excess -0.6, VBG Lactic Acid 0.8 02/20/25 16:54: WBC 7.8, RBC 3.87 L, Hgb 12.6, Hct 35.5 L, MCV 91.7, MCH 32.6 H, MCHC 35.5 H, RDW 13.2, Plt Count 357, MPV 9.4, Neut % (Auto) 73.1, Lymph % (Auto) 19.4, [place] % (Auto) 5.5, Eos % (Auto) 1.1, Baso % (Auto) 0.6, Neut # (Auto) 5.7, Lymph # (Auto) 1.5, [place] # (Auto) 0.4, Eos # (Auto) 0.1, Baso # (Auto) 0.1, Sodium 143, Potassium 2.5 L*, Chloride 111 H, Carbon Dioxide 25, Anion Gap 9.5, BUN 11, Creatinine 0.50 L, Estimated Creat Clear 203, Estimated GFR 133, Est GFR ( Amer) 161, Glucose 105 H, Calcium 9.0, Magnesium 1.9, Total Bilirubin 0.6, AST 28, ALT 20, Alkaline Phosphatase 59, Total Creatine Kinase 151 H, Total Protein 6.8, Albumin 4.0, Globulin 2.8, Albumin/Globulin Ratio 1.4, Serum HCG, Qual Negative, Salicylates < 1.0 L, Acetaminophen < 10 L, Plasma/Serum Alcohol < 10, HCV Ab ROBERTO w/Rflx PCR Qn Negative, HIV Ag/Ab Combo Qual Negative 02/20/25 17:01: Urine Color Yellow, Urine Appearance Clear, Urine pH 6.5, Ur Specific [place] <= 1.005, Urine Protein Negative, Urine Glucose (UA) Negative, Urine Ketones Negative, Urine Blood Negative, Urine Nitrate Negative, Urine Bilirubin Negative, Urine Urobilinogen 0.2, Ur Leukocyte Esterase Negative, Urine RBC None, Urine WBC Occasional, Ur Squamous Epith Cells 3-5, Urine Bacteria 1+, Urine Opiates Screen Negative, Urine Methadone Screen Negative, Ur Barbituates Screen Negative, Ur Phencyclidine Scrn Negative, Ur Amphetamines Screen Positive H, U Benzodiazepines Scrn Negative, Urine Cocaine Screen Negative, U Marijuana (THC) Screen Positive H 02/20/25 19:23: Specimen Source Left radial, O2 % 40, ABG pH 7.47 H, ABG pCO2 36.9, ABG pO2 158.3 H, ABG HCO3 26.3 H, ABG Total CO2 27.4 H, ABG O2 Saturation 99, ABG Base Excess 2.6 H, Kwame Test Patient unable, Vent Rate 18, Tidal Volume 410, PEEP 5 02/21/25 07:23: WBC 10.3 D, RBC 3.42 L, Hgb 11.3 L D, Hct 31.3 L, MCV 91.5, MCH 33.0 H, MCHC 36.1 H, RDW 13.3, Plt Count 311, MPV 9.6, Neut % (Auto) 80.8 H, Lymph % (Auto) 11.9, [place] % (Auto) 4.9, Eos % (Auto) 1.7, Baso % (Auto) 0.4, Neut # (Auto) 8.3 H, Lymph # (Auto) 1.2, [place] # (Auto) 0.5, Eos # (Auto) 0.2, Baso # (Auto) 0.0, Sodium 144, Potassium 2.5 L*, Chloride 114 H, Carbon Dioxide 25, Anion Gap 7.5, BUN 8 D, Creatinine 0.50 L, Estimated Creat Clear 172, Estimated GFR 133, Est GFR ( Amer) 161, Glucose 96, Calcium 8.6 I & O for Last 24 hours: Intake & Output 02/18/25 02/19/25 02/20/25 02/21/25 23:59 23:59 23:59 23:59 Intake Total 2.321 / 2.321 56.772 / 56.772 Output Total 75 / 120 90 / 90 Balance -72.679 / -117.679 -33.228 / -33.228 Weight 151 lb 3.794 oz 169 lb 1.513 oz Constitutional Comments: intubated, sedated *Routine HEENT Exam Head: Present normocephalic Eye: Present EOMI and PERRL ENT: Present mucous membranes moist *Routine Neck Exam Neck: Present supple; Absent lymphadenopathy *Routine Respiratory Exam Respiratory: Present CTA bilaterally *Routine Cardiovascular Exam Cardiovascular: Present RRR *Routine Abdominal Exam Abdominal: Present soft and normoactive bowel sounds; Absent tenderness *Routine Rectal Exam Rectal:: deferred *Routine Genitalia Exam Genitalia:: deferred *Routine Extremities Exam Extremities: Absent cyanosis, clubbing or edema *Routine Skin Exam Skin: Present warm; Absent rash *Routine Neurological Exam Comments: intubated, sedated Assessment and Plan *Assessment and plan (1) Respiratory failure: Status: Acute Category: Medical Code(s): J96.90 - Respiratory failure, unspecified, unspecified whether with hypoxia or hypercapnia (2) Suicide attempt by multiple drug overdose: Status: Acute Category: Medical Code(s): T50.912A - Poisoning by multiple unspecified drugs, medicaments and biological substances, intentional self-harm, initial encounter (3) Marijuana abuse: Status: Acute Category: Medical Code(s): F12.10 - Cannabis abuse, uncomplicated (4) Amphetamine abuse: Status: Acute Category: Medical Code(s): F15.10 - Other stimulant abuse, uncomplicated (5) Hypokalemia: Status: Acute Category: Medical Code(s): E87.6 - Hypokalemia (6) Depressive disorder: Status: Acute Category: Medical Code(s): F32.A - Depression, unspecified Plan Admitted to [facility], intubated to protect airway, spoke to Dr. Barrow, replace potassium, increase IVF due to low UOP, repeat EKG. Once medically stable will contact psych facility.
--- NOTE | 2025-02-21 09:42 | HMH.PHAINT1 ---
Pharmacy Intervention Comments: MEDICATION RECONCILIATION COMPLETE USING EXTERNAL PHARMACY FILL HISTORY.
--- NOTE | 2025-02-21 10:02 | PC.NURSE ---
Unable to perform SBT due to pt. thrashing all over bed and trying to pull her tube out.
--- NOTE | 2025-02-21 11:36 | ECG_ITS ---
APPROVED REPORT Exam: Resting ECG HR:95 bpm ECG Measurements Heart Rate 95 AXES OK 161 P 73 QRSd 106 QRS 82 QT 378 T 69 QTc 430 Conclusion SINUS RHYTHM NONSPECIFIC ST & T-WAVE ABNORMALITY BORDERLINE ECG UNCONFIRMED REPORT Electronically signed by : Deon Mancilla MD 02/22/2025 12:46:13
[2025-02-21] MEDS: FAMOTIDINE 20MG/2ML VIAL 20 MG IV ×2 (11:41→20:04)
[2025-02-21] MEDS: 0.9 % SODIUM CHLORIDE 1000ML 1,000 ML 999 ML IV ×2 (11:42→20:53)
[2025-02-21] MEDS: POTASSIUM CHLORIDE 20 MEQ, LIDOCAINE HCL/PF 3 ML in 0.9 % SODIUM CHLORIDE 100 ML 56.5 MEQ IV ×3 (11:43→14:20)
[2025-02-21] MEDS: D5W/0.9% NaCl w/40mEq KCL 1,000 ML 125 ML IV ×2 (12:50→19:54)
--- NOTE | 2025-02-21 13:00 | EXP.ACUTE.PN ---
Subjective *Date: 02/21/25 *Time: 13:00 Interval history: Nurse called stating patient became restless and she had to apply restraints briefly. Propofol dose was increased and patient is resting comfortably now. UOP has improved, FiO2 is still at 21% Medical Exam Vital signs and Labs for Last 24 Hours: Vital Signs Temp Pulse Pulse Resp BP BP Pulse Ox 02/21/25 12:00 97.2 F L 93 H 18 153/89 H 99 02/21/25 12:00 86 02/21/25 11:31 18 98 02/21/25 11:15 02/21/25 11:00 97.7 F 98 H 18 144/83 H 98 02/21/25 10:00 97.7 F 97 H 18 158/85 H 96 02/21/25 09:59 18 97 02/21/25 09:45 158/84 H 02/21/25 09:45 97.7 F 93 H 17 97 02/21/25 09:40 97.7 F 91 H 18 96 02/21/25 09:40 161/84 H 02/21/25 09:35 157/83 H 02/21/25 09:35 97.7 F 92 H 16 96 02/21/25 09:30 97.9 F 93 H 18 96 02/21/25 09:30 152/81 H 02/21/25 09:29 97.9 F 93 H 18 96 02/21/25 09:29 156/81 H 02/21/25 09:22 97.9 F 95 H 18 96 02/21/25 09:22 140/78 02/21/25 09:15 98.1 F 98 H 16 95 02/21/25 09:00 98.2 F 83 18 110/69 96 02/21/25 08:15 98.2 F 86 18 96 02/21/25 08:00 91 H 02/21/25 08:00 98.2 F 87 18 109/69 L 95 02/21/25 07:00 98.2 F 84 18 124/78 97 02/21/25 07:00 02/21/25 06:58 18 97 02/21/25 06:00 96 02/21/25 06:00 98.6 F 91 H 18 113/73 02/21/25 05:00 02/21/25 05:00 98.6 F 90 18 113/73 02/21/25 04:09 18 97 02/21/25 04:00 90 02/21/25 04:00 98 02/21/25 04:00 97.9 F 88 18 107/69 L 96 02/21/25 03:00 96.8 F L 84 18 105/69 L 97 02/21/25 03:00 02/21/25 02:12 18 98 02/21/25 02:00 96.3 F L 83 18 107/72 L 97 02/21/25 01:00 02/21/25 01:00 96.3 F L 90 18 142/92 H 99 02/21/25 00:05 18 100 02/21/25 00:00 90 02/21/25 00:00 96.1 F L 88 18 128/86 100 02/21/25 00:00 98 02/20/25 23:00 96.3 F L 86 18 115/77 100 02/20/25 23:00 02/20/25 22:00 96.4 F L 86 18 108/71 L 100 02/20/25 21:59 18 100 02/20/25 21:30 87 02/20/25 21:00 02/20/25 21:00 96.8 F L 85 18 115/80 99 02/20/25 20:43 96.8 F L 93 H 18 115/71 02/20/25 20:34 96 H 02/20/25 20:26 19 99 02/20/25 20:15 99 02/20/25 19:45 140/91 H 02/20/25 19:30 96.8 F L 98 H 18 128/85 100 02/20/25 19:15 96.6 F L 99 H 18 146/92 H 100 02/20/25 18:45 96.6 F L 99 H 18 125/81 100 02/20/25 18:30 99 H 18 143/92 H 100 02/20/25 18:16 98 H 18 133/91 H 100 02/20/25 18:11 98 H 18 142/90 H 100 02/20/25 18:00 98 H 18 138/90 100 02/20/25 17:35 18 100 02/20/25 17:30 99 H 18 127/82 100 02/20/25 17:15 98.1 F 109 H 19 143/81 H 94 L 02/20/25 17:00 108 H 19 143/81 H 94 L O2 Del Method O2 Flow Rate FiO2 02/21/25 12:00 Mechanical Ventilation 18 21 02/21/25 12:00 02/21/25 11:31 21 02/21/25 11:15 Mechanical Ventilation 02/21/25 11:00 Mechanical Ventilation 18 21 02/21/25 10:00 Mechanical Ventilation 18 21 02/21/25 09:59 21 02/21/25 09:45 02/21/25 09:45 02/21/25 09:40 02/21/25 09:40 02/21/25 09:35 02/21/25 09:35 02/21/25 09:30 02/21/25 09:30 02/21/25 09:29 02/21/25 09:29 02/21/25 09:22 02/21/25 09:22 02/21/25 09:15 02/21/25 09:00 Mechanical Ventilation 18 21 02/21/25 08:15 02/21/25 08:00 02/21/25 08:00 Mechanical Ventilation 18 21 02/21/25 07:00 Mechanical Ventilation 18 21 02/21/25 07:00 Mechanical Ventilation 02/21/25 06:58 21 02/21/25 06:00 02/21/25 06:00 Mechanical Ventilation 02/21/25 05:00 Mechanical Ventilation 02/21/25 05:00 Mechanical Ventilation 02/21/25 04:09 21 02/21/25 04:00 02/21/25 04:00 Mechanical Ventilation 02/21/25 04:00 Mechanical Ventilation 02/21/25 03:00 Mechanical Ventilation 02/21/25 03:00 Mechanical Ventilation 02/21/25 02:12 21 02/21/25 02:00 Mechanical Ventilation 02/21/25 01:00 Mechanical Ventilation 02/21/25 01:00 Mechanical Ventilation 02/21/25 00:05 21 02/21/25 00:00 02/21/25 00:00 Mechanical Ventilation 02/21/25 00:00 Mechanical Ventilation 02/20/25 23:00 Mechanical Ventilation 02/20/25 23:00 Mechanical Ventilation 02/20/25 22:00 Mechanical Ventilation 02/20/25 21:59 21 02/20/25 21:30 02/20/25 21:00 Mechanical Ventilation 02/20/25 21:00 Mechanical Ventilation 02/20/25 20:43 Room Air 02/20/25 20:34 02/20/25 20:26 21 02/20/25 20:15 Mechanical Ventilation 02/20/25 19:45 02/20/25 19:30 Mechanical Ventilation 02/20/25 19:15 Mechanical Ventilation 02/20/25 18:45 Mechanical Ventilation 02/20/25 18:30 Mechanical Ventilation 02/20/25 18:16 Mechanical Ventilation 02/20/25 18:11 Mechanical Ventilation 02/20/25 18:00 Mechanical Ventilation 02/20/25 17:35 50 02/20/25 17:30 Mechanical Ventilation 02/20/25 17:15 Room Air 02/20/25 17:00 Mechanical Ventilation Intake and Output 02/20/25 02/21/25 02/21/25 23:59 07:59 15:59 Intake Total 2.321 / 2.321 56.772 / 2212.153 2155.381 / 221.153 Output Total 75 / 120 90 / 230 140 / 230 Balance -72.679 / -117.679 -33.228 / 4228.085 0803.381 / 153 Intake: Intake, Oral Amount 0 / 0 Intake, Total IV Amount 2.321 / 2.321 56.772 / 2212.153 215.381 / 221.153 0.9 % Sodium Chloride 1000ML 1, 1000 / 1000 000 ml @ 999 mls/hr IV .Q1H1M [facility] Rx#:[id number] D5W/0.9% NaCl w/40mEq KCL 1,000 897 / 897 ml @ 125 mls/hr IV .Q8H [facility] Rx #:[id number] Potassium Chloride 20 meq 98 / 98 Lidocaine HCl/Pf 3 ml In 0.9 % Sodium Chloride 100 ml @ 56.5 mls/hr IV Q2H [facility] Rx#:[id number] Output: Output, Urine Amount 90 / 230 140 / 230 Output, Urine Amount (Catheter) 75 / 75 Dodd 75 / 75 Other: Number of Unmeasured Voids 0 0 Weight 151 lb 3.794 oz 169 lb 1.513 oz Patient Weight 02/21/25 23:59 Weight 169 lb 1.513 oz Laboratory Results - last 24 hr 02/20/25 16:53: VBG pH 7.43 H, VBG pCO2 36.7, VBG pO2 39.0, VBG HCO3 23.7, VBG Total CO2 24.8, VBG O2 Saturation 75.1 H, VBG Base Excess -0.6, VBG Lactic Acid 0.8 02/20/25 16:54: WBC 7.8, RBC 3.87 L, Hgb 12.6, Hct 35.5 L, MCV 91.7, MCH 32.6 H, MCHC 35.5 H, RDW 13.2, Plt Count 357, MPV 9.4, Neut % (Auto) 73.1, Lymph % (Auto) 19.4, [place] % (Auto) 5.5, Eos % (Auto) 1.1, Baso % (Auto) 0.6, Neut # (Auto) 5.7, Lymph # (Auto) 1.5, [place] # (Auto) 0.4, Eos # (Auto) 0.1, Baso # (Auto) 0.1, Sodium 143, Potassium 2.5 L*, Chloride 111 H, Carbon Dioxide 25, Anion Gap 9.5, BUN 11, Creatinine 0.50 L, Estimated Creat Clear 203, Estimated GFR 133, Est GFR ( Amer) 161, Glucose 105 H, Calcium 9.0, Magnesium 1.9, Total Bilirubin 0.6, AST 28, ALT 20, Alkaline Phosphatase 59, Total Creatine Kinase 151 H, Total Protein 6.8, Albumin 4.0, Globulin 2.8, Albumin/Globulin Ratio 1.4, Serum HCG, Qual Negative, Salicylates < 1.0 L, Acetaminophen < 10 L, Plasma/Serum Alcohol < 10, HCV Ab ROBERTO w/Rflx PCR Qn Negative, HIV Ag/Ab Combo Qual Negative 02/20/25 17:01: Urine Color Yellow, Urine Appearance Clear, Urine pH 6.5, Ur Specific [place] <= 1.005, Urine Protein Negative, Urine Glucose (UA) Negative, Urine Ketones Negative, Urine Blood Negative, Urine Nitrate Negative, Urine Bilirubin Negative, Urine Urobilinogen 0.2, Ur Leukocyte Esterase Negative, Urine RBC None, Urine WBC Occasional, Ur Squamous Epith Cells 3-5, Urine Bacteria 1+, Urine Opiates Screen Negative, Urine Methadone Screen Negative, Ur Barbituates Screen Negative, Ur Phencyclidine Scrn Negative, Ur Amphetamines Screen Positive H, U Benzodiazepines Scrn Negative, Urine Cocaine Screen Negative, U Marijuana (THC) Screen Positive H 02/20/25 19:23: Specimen Source Left radial, O2 % 40, ABG pH 7.47 H, ABG pCO2 36.9, ABG pO2 158.3 H, ABG HCO3 26.3 H, ABG Total CO2 27.4 H, ABG O2 Saturation 99, ABG Base Excess 2.6 H, Kwame Test Patient unable, Vent Rate 18, Tidal Volume 410, PEEP 5 02/21/25 07:23: WBC 10.3 D, RBC 3.42 L, Hgb 11.3 L D, Hct 31.3 L, MCV 91.5, MCH 33.0 H, MCHC 36.1 H, RDW 13.3, Plt Count 311, MPV 9.6, Neut % (Auto) 80.8 H, Lymph % (Auto) 11.9, [place] % (Auto) 4.9, Eos % (Auto) 1.7, Baso % (Auto) 0.4, Neut # (Auto) 8.3 H, Lymph # (Auto) 1.2, [place] # (Auto) 0.5, Eos # (Auto) 0.2, Baso # (Auto) 0.0, Sodium 144, Potassium 2.5 L*, Chloride 114 H, Carbon Dioxide 25, Anion Gap 7.5, BUN 8 D, Creatinine 0.50 L, Estimated Creat Clear 172, Estimated GFR 133, Est GFR ( Amer) 161, Glucose 96, Calcium 8.6 I & O for Labs for Last 24 Hours: Intake & Output 02/18/25 02/19/25 02/20/25 02/21/25 23:59 23:59 23:59 23:59 Intake Total 2.321 / 2.321 2212.153 / 2212.153 Output Total 75 / 120 230 / 230 Balance -72.679 / -656.316 0636.153 / 1982.153 Weight 151 lb 3.794 oz 169 lb 1.513 oz Microbiology Reports for the Last 24 Hours: Microbiology 02/20/25 17:40 Sputum - Endotracheal Tube Aspirate Gram Stain - Final Comment:: Intubated, sedated, resting comfortably Assessment and Plan *Assessment and plan (1) Respiratory failure: Status: Acute Category: Medical Code(s): J96.90 - Respiratory failure, unspecified, unspecified whether with hypoxia or hypercapnia (2) Suicide attempt by multiple drug overdose: Status: Acute Category: Medical Code(s): T50.912A - Poisoning by multiple unspecified drugs, medicaments and biological substances, intentional self-harm, initial encounter (3) Marijuana abuse: Status: Acute Category: Medical Code(s): F12.10 - Cannabis abuse, uncomplicated (4) Amphetamine abuse: Status: Acute Category: Medical Code(s): F15.10 - Other stimulant abuse, uncomplicated (5) Hypokalemia: Status: Acute Category: Medical Code(s): E87.6 - Hypokalemia (6) Depressive disorder: Status: Acute Category: Medical Code(s): F32.A - Depression, unspecified Plan Spoke to patient's family, they understand treatment plan. Recheck labs tomorrow. OK to use soft restraints if needed.
--- NOTE | 2025-02-21 14:19 | PC.NURSE ---
During 899 patient care with Rn and SRNA and getting patient ready for potential SBT. pt became extremely aggitated while turning. pt repeatedly sat up in the bed (90 degree angle) flailing arms and legs and grasped ahold of the ETT and OG tube. pt sedation of propofol 20mcg during turning. 2 staff members attempted to keep patient in bed and remove hands from ETT. Respiratory called as well to help protect ETT while Nursing staff managed flailing extremities. sedation was increased to 35 mcg, with no results. Soft wrist restraints applied at 907 r/t pt still thrashing in bed, grabbing at tube and flailing arms and legs. Attempted to call Dr Garcia in office at [phone] to notify him of application of restraints and that Patient needed to be assessed by MD within 1 hour of application. MD unavailable at time of call. [phone] Dr Garcia returned call from office. Dr Garcia notified this RN that he would prefer patient sedation be increased until pt was resting comfortably instead of using restraints at this time. Sedation was periodically increased for pt comfort and restraints were removed.
[2025-02-21 21:03] LABS: POC Glucose,Bedside 114 (70-110)
[2025-02-22] VITALS (50 sets, daily range): BP systolic 119–170; BP diastolic 70–95; PULSE 79–91; RESP 18–21; TEMP 36.3–36.8; O2SAT 97–100; BMI 25.2
[2025-02-22] MEDS: D5W/0.9% NaCl w/40mEq KCL 1,000 ML 125 ML IV ×3 (02:14→18:02)
--- NOTE | 2025-02-22 06:00 | XR_ITS ---
PROCEDURE INFORMATION: Exam: XR Chest Exam date and time: 02/22/2025 1:49 PM Age: 44 years old Clinical indication: Other: Ett/og tube/intubated TECHNIQUE: Imaging protocol: Radiologic exam of the chest. Views: 1 view. COMPARISON: CR XR CHEST PORTABLE 02/20/2025 5:31 PM FINDINGS: Tubes, catheters and devices: ET tube is 4.3 cm above the ju. NG tube in the stomach. Lungs: No focal infiltrates. Pleural spaces: Unremarkable. No pleural effusion. No pneumothorax. Heart/Mediastinum: Unremarkable. No cardiomegaly. Bones/joints: Unremarkable. Intraperitoneal space: Surgical clips right abdomen. IMPRESSION: 1. ET tube is 4.3 cm above the ju. 2. NG tube in the stomach. 3. Surgical clips right abdomen. 4. No focal infiltrates.
--- NOTE | 2025-02-22 06:37 | EXP.ACUTE.PN ---
Subjective *Date: 02/22/25 *Time: 06:37 Interval history: No new issues noted overnight. UOP was low yesterday and an additional liter of NS was given and UOP improved. Medical Exam Vital signs and Labs for Last 24 Hours: Vital Signs Temp Pulse Resp BP Pulse Ox O2 Del Method O2 Flow Rate 02/22/25 06:00 97.7 F 79 18 132/75 98 Mechanical Ventilation 18 02/22/25 05:00 Mechanical Ventilation 02/22/25 05:00 97.5 F L 84 18 139/81 99 Mechanical Ventilation 18 02/22/25 04:00 Mechanical Ventilation 02/22/25 04:00 97.3 F L 81 18 120/71 97 Mechanical Ventilation 18 02/22/25 04:00 87 02/22/25 03:00 Mechanical Ventilation 02/22/25 03:00 97.5 F L 83 18 120/73 99 Mechanical Ventilation 18 02/22/25 02:00 97.5 F L 86 18 135/82 100 Mechanical Ventilation 18 02/22/25 01:00 Mechanical Ventilation 02/22/25 01:00 97.5 F L 87 18 126/79 100 Mechanical Ventilation 18 02/22/25 00:00 Mechanical Ventilation 02/22/25 00:00 86 02/22/25 00:00 97.7 F 86 18 119/73 100 Mechanical Ventilation 02/21/25 23:55 18 99 02/21/25 23:30 97.7 F 87 18 128/78 100 Mechanical Ventilation 02/21/25 23:00 Mechanical Ventilation 02/21/25 23:00 97.7 F 92 H 18 145/89 H 99 Mechanical Ventilation 18 02/21/25 22:00 18 02/21/25 22:00 97.5 F L 91 H 17 143/96 H 99 Mechanical Ventilation 18 02/21/25 21:00 Mechanical Ventilation 02/21/25 21:00 97.9 F 90 18 134/81 99 Mechanical Ventilation 18 02/21/25 20:00 Mechanical Ventilation 02/21/25 20:00 93 H 02/21/25 20:00 97.9 F 91 H 18 146/88 H 98 Mechanical Ventilation 18 02/21/25 19:30 98.1 F 86 18 127/74 98 Mechanical Ventilation 18 02/21/25 19:03 18 02/21/25 19:00 98.1 F 84 18 127/75 98 Mechanical Ventilation 02/21/25 18:54 Mechanical Ventilation 02/21/25 18:30 97.9 F 83 18 132/80 98 Mechanical Ventilation 02/21/25 18:00 97.9 F 83 18 130/80 98 Mechanical Ventilation 02/21/25 17:30 97.9 F 81 18 119/68 96 Mechanical Ventilation 02/21/25 17:10 Mechanical Ventilation 02/21/25 17:00 97.9 F 82 18 126/76 97 Mechanical Ventilation 02/21/25 16:30 97.7 F 85 18 128/78 97 Mechanical Ventilation 02/21/25 16:22 97 Mechanical Ventilation 02/21/25 16:00 97.5 F L 87 18 142/87 H 97 Mechanical Ventilation 02/21/25 16:00 88 02/21/25 15:30 97.5 F L 87 18 146/91 H 99 Mechanical Ventilation 02/21/25 15:05 Mechanical Ventilation 02/21/25 15:00 97.3 F L 88 18 144/90 H 99 Mechanical Ventilation 02/21/25 14:30 97.2 F L 91 H 18 134/82 99 Mechanical Ventilation 02/21/25 14:24 18 99 02/21/25 14:00 97.2 F L 91 H 18 99 02/21/25 14:00 97.2 F L 91 H 18 141/88 H 99 Mechanical Ventilation 18 02/21/25 13:45 97.0 F L 94 H 18 98 02/21/25 13:30 97.0 F L 93 H 18 98 02/21/25 13:30 148/93 H 02/21/25 13:15 96.8 F L 94 H 18 98 02/21/25 13:00 96.8 F L 94 H 18 156/94 H 98 Mechanical Ventilation 02/21/25 13:00 Mechanical Ventilation 02/21/25 12:39 99 Mechanical Ventilation 02/21/25 12:30 96.6 F L 91 H 18 156/91 H 100 Mechanical Ventilation 02/21/25 12:00 97.2 F L 93 H 18 153/89 H 99 Mechanical Ventilation 18 02/21/25 12:00 86 02/21/25 11:31 18 98 02/21/25 11:15 Mechanical Ventilation 02/21/25 11:00 97.7 F 98 H 18 144/83 H 98 Mechanical Ventilation 18 02/21/25 10:00 97.7 F 97 H 18 158/85 H 96 Mechanical Ventilation 18 02/21/25 09:59 18 97 02/21/25 09:45 158/84 H 02/21/25 09:45 97.7 F 93 H 17 97 02/21/25 09:40 97.7 F 91 H 18 96 02/21/25 09:40 161/84 H 02/21/25 09:35 157/83 H 02/21/25 09:35 97.7 F 92 H 16 96 02/21/25 09:30 97.9 F 93 H 18 96 02/21/25 09:30 152/81 H 02/21/25 09:29 97.9 F 93 H 18 96 02/21/25 09:29 156/81 H 02/21/25 09:22 97.9 F 95 H 18 96 02/21/25 09:22 140/78 02/21/25 09:15 100 02/21/25 09:15 98.1 F 98 H 16 95 02/21/25 09:00 98.2 F 83 18 110/69 96 Mechanical Ventilation 18 02/21/25 08:15 98.2 F 86 18 96 02/21/25 08:00 100 Nasal Cannula 02/21/25 08:00 91 H 02/21/25 08:00 98.2 F 87 18 109/69 L 95 Mechanical Ventilation 18 02/21/25 07:00 98.2 F 84 18 124/78 97 Mechanical Ventilation 18 02/21/25 07:00 Mechanical Ventilation 02/21/25 06:58 18 97 FiO2 02/22/25 06:00 02/22/25 05:00 02/22/25 05:00 02/22/25 04:00 02/22/25 04:00 02/22/25 04:00 02/22/25 03:00 02/22/25 03:00 02/22/25 02:00 02/22/25 01:00 02/22/25 01:00 02/22/25 00:00 02/22/25 00:00 02/22/25 00:00 02/21/25 23:55 02/21/25 23:30 02/21/25 23:00 02/21/25 23:00 25 22:00 21 02/21/25 22:00 21 02/21/25 21:00 02/21/25 21:00 21 02/21/25 20:00 21 02/21/25 20:00 02/21/25 20:00 21 02/21/25 19:30 21 02/21/25 19:03 21 02/21/25 19:00 02/21/25 18:54 02/21/25 18:30 02/21/25 18:00 21 02/21/25 17:30 21 02/21/25 17:10 02/21/25 17:00 02/21/25 16:30 02/21/25 16:22 21 02/21/25 16:00 21 02/21/25 16:00 02/21/25 15:30 21 02/21/25 15:05 02/21/25 15:00 02/21/25 14:30 02/21/25 14:24 21 02/21/25 14:00 02/21/25 14:00 21 02/21/25 13:45 02/21/25 13:30 02/21/25 13:30 02/21/25 13:15 02/21/25 13:00 21 02/21/25 13:00 02/21/25 12:39 21 02/21/25 12:30 21 02/21/25 12:00 21 02/21/25 12:00 02/21/25 11:31 21 02/21/25 11:15 02/21/25 11:00 21 02/21/25 10:00 21 02/21/25 09:59 21 02/21/25 09:45 02/21/25 09:45 02/21/25 09:40 02/21/25 09:40 02/21/25 09:35 02/21/25 09:35 02/21/25 09:30 02/21/25 09:30 02/21/25 09:29 02/21/25 09:29 02/21/25 09:22 02/21/25 09:22 02/21/25 09:15 21 02/21/25 09:15 02/21/25 09:00 21 02/21/25 08:15 02/21/25 08:00 21 02/21/25 08:00 02/21/25 08:00 21 02/21/25 07:00 21 02/21/25 07:00 02/21/25 06:58 21 Intake and Output 02/21/25 02/21/25 02/22/25 15:59 23:59 07:59 Intake Total 2547.070 / 3316.652 712.81 / 3316.652 2749.546 / 2749.546 Output Total 208 / 513 180 / 513 220 / 220 Balance 2339.070 / 2803.652 532.81 / 2803.652 2529.546 / 2529.546 Intake: Intake, Oral Amount 0 / 0 Intake, Total IV Amount 2547.070 / 3316.652 712.81 / 3316.652 2749.546 / 2749.546 0.9 % Sodium Chloride 1000ML 1, 1000 / 1000 000 ml @ 999 mls/hr IV .Q1H1M [facility] Rx#:[id number] 0.9 % Sodium Chloride 1000ML 1, 1000 / 1000 000 ml @ 999 mls/hr IV .Q1H1M [facility] Rx#:[id number] D5W/0.9% NaCl w/40mEq KCL 1,000 1084 / 1533 449 / 1533 1194 / 1194 ml @ 125 mls/hr IV .Q8H [facility] Rx #:[id number] Potassium Chloride 20 meq 236 / 302 66 / 302 Lidocaine HCl/Pf 3 ml In 0.9 % Sodium Chloride 100 ml @ 56.5 mls/hr IV Q2H [facility] Rx#:[id number] propofoL 100 ml @ 20 MCG/KG/MIN 291 / 291 10.886 mls/hr IV .Q9H12M [facility] Rx#:[id number] Output: Output, Urine Amount 208 / 363 65 / 363 Output, Urine Amount (Catheter) 115 / 150 220 / 220 Dodd 115 / 150 220 / 220 Other: Number of Unmeasured Voids 0 0 Number of Bowel Movements 1 1 Weight 166 lb 10.711 oz Patient Weight 02/22/25 23:59 Weight 166 lb 10.711 oz Laboratory Results - last 24 hr 02/21/25 07:23: WBC 10.3 D, RBC 3.42 L, Hgb 11.3 L D, Hct 31.3 L, MCV 91.5, MCH 33.0 H, MCHC 36.1 H, RDW 13.3, Plt Count 311, MPV 9.6, Neut % (Auto) 80.8 H, Lymph % (Auto) 11.9, [place] % (Auto) 4.9, Eos % (Auto) 1.7, Baso % (Auto) 0.4, Neut # (Auto) 8.3 H, Lymph # (Auto) 1.2, [place] # (Auto) 0.5, Eos # (Auto) 0.2, Baso # (Auto) 0.0, Sodium 144, Potassium 2.5 L*, Chloride 114 H, Carbon Dioxide 25, Anion Gap 7.5, BUN 8 D, Creatinine 0.50 L, Estimated Creat Clear 172, Estimated GFR 133, Est GFR ( Amer) 161, Glucose 96, Calcium 8.6 02/21/25 19:30: POC Glucose 114 H I & O for Labs for Last 24 Hours: Intake & Output 02/19/25 02/20/25 02/21/25 02/22/25 23:59 23:59 23:59 23:59 Intake Total 2.321 / 2.321 3316.652 / 3316.652 2749.546 / 2749.546 Output Total 75 / 120 478 / 513 220 / 220 Balance -72.679 / -832.782 9406.652 / 2803.652 2529.546 / 2529.546 Weight 151 lb 3.794 oz 169 lb 1.513 oz 166 lb 10.711 oz Microbiology Reports for the Last 24 Hours: Microbiology 02/20/25 20:31 Anus CRE Surveillance Culture - Final No growth. 02/20/25 17:40 Sputum - Endotracheal Tube Aspirate Gram Stain - Final Comment:: Intubated, sedated, NAD Cardiac: Present Reg Rate and Rhythm Extremities: Present normal inspection; Absent edema Skin: Present intact; Absent rash Assessment and Plan *Assessment and plan (1) Respiratory failure: Status: Acute Category: Medical Code(s): J96.90 - Respiratory failure, unspecified, unspecified whether with hypoxia or hypercapnia (2) Suicide attempt by multiple drug overdose: Status: Acute Category: Medical Code(s): T50.912A - Poisoning by multiple unspecified drugs, medicaments and biological substances, intentional self-harm, initial encounter (3) Marijuana abuse: Status: Acute Category: Medical Code(s): F12.10 - Cannabis abuse, uncomplicated (4) Amphetamine abuse: Status: Acute Category: Medical Code(s): F15.10 - Other stimulant abuse, uncomplicated (5) Hypokalemia: Status: Acute Category: Medical Code(s): E87.6 - Hypokalemia (6) Depressive disorder: Status: Acute Category: Medical Code(s): F32.A - Depression, unspecified Plan Morning labs are pending, continue current treatment. No change in vent settings, patient is still only requiring FiO2 of 21%, recheck EKG today.
[2025-02-22 07:33] LABS: Hematocrit 38.9 % (37.0-47.0); Immature Granulocytes % 0.3 %; Mean Corpuscular HGB Conc 32.9 g/dL (31.8-35.4); Nucleated Red Blood Cells % 0 %
--- NOTE | 2025-02-22 07:39 | ECG_ITS ---
APPROVED REPORT Exam: Resting ECG HR:86 bpm ECG Measurements Heart Rate 86 AXES RI 153 P 74 QRSd 93 QRS 78 QT 390 T 87 QTc 433 Conclusion SINUS RHYTHM NONSPECIFIC T-WAVE ABNORMALITY BORDERLINE ECG INTERPRETATION BASED ON A DEFAULT AGE OF 39 YEARS UNCONFIRMED REPORT Electronically signed by : Deon Mancilla MD 02/23/2025 08:19:34
[2025-02-22 07:42] LABS: Albumin Level 3.3 g/dl (3.5-5.0); Chloride 123 mmol/L (98-107); Potassium 4.0 mmoL/L (3.5-5.1); Sodium 147 mmol/L (136-145)
[2025-02-22 07:43] LABS: Mean Corpuscular Hemoglobin 32.4 pg (27.0-31.2); Mean Corpuscular Volume 98.5 fl (81-99); Platelet Count 287 K/mm3 (142-424); Red Blood Count 3.95 M/mm3 (4.20-5.40); Red Cell Distribution Width-SD 53.0 fL; White Blood Count 12.0 K/mm3 (4.8-10.8)
[2025-02-22 07:44] LABS: Hemoglobin 12.8 g/dL (12.2-16.2)
[2025-02-22 07:45] LABS: Alanine Aminotransferase 22 U/L (12-78); Albumin/Globulin Ratio 1.3 (1.1-1.8); Alkaline Phosphatase 74 U/L (38-126); Anion Gap 7.0 mEq/L (5-15); Aspartate Amino Transferase 50 U/L (14-36); Bilirubin,Total 0.5 mg/dl (0.2-1.3); Blood Urea Nitrogen 4 mg/dl (7-17); Calcium 7.7 mg/dl (8.4-10.2); Carbon Dioxide 21 mmol/L (22.0-30.0); Creatinine Clearance Estimated 212 mL/min (50-200); Creatinine,Serum 0.40 mg/dl (0.52-1.04); Estimated Glomerular Filt Rate 173 ml/min (>60); GFR (African American) 209 ML/MIN (>60); Globulin 2.6 g/dL (1.3-3.2); Glucose 99 mg/dl (74-100); Total Protein,Serum 5.9 g/dl (6.3-8.2)
[2025-02-22 07:54] LABS: ABG HCO3 17.7 mmhg (22.0-26.0); ABG PCO2 30.4 mmhg (35.0-45.0); ABG PH 7.38 mmol/L (7.35-7.45); ABG PO2 77.9 mmhg (80-100); ABG TCO2 18.7 mmhg (23-27)
[2025-02-22 07:55] LABS: PEEP 5; Source Left Radial
[2025-02-22] MEDS: FAMOTIDINE 20MG/2ML VIAL 20 MG IV ×2 (08:20→20:46)
--- NOTE | 2025-02-22 11:00 | PC.NURSE ---
Started pt on SBT per Dr Barrow. SBT for one hour.
--- NOTE | 2025-02-22 12:01 | PC.NURSE ---
Pt placed back on AC per Dr Barrow.
--- NOTE | 2025-02-22 14:33 | PC.NURSE ---
Spoke with poison control, they were given an update and did not have any new recommendations.
[2025-02-23] VITALS (37 sets, daily range): BP systolic 109–217; BP diastolic 61–106; PULSE 77–106; RESP 16–24; TEMP 36.1–36.7; O2SAT 96–100; BMI 26.0
[2025-02-23 00:35] LABS: POC Glucose,Bedside 104 (70-110)
[2025-02-23 00:35] LABS: POC Glucose,Bedside 121 (70-110)
[2025-02-23 00:35] LABS: POC Glucose,Bedside 105 (70-110)
[2025-02-23 00:35] LABS: POC Glucose,Bedside 100 (70-110)
[2025-02-23] MEDS: D5W/0.9% NaCl w/40mEq KCL 1,000 ML 125 ML IV ×2 (01:47→09:18)
--- NOTE | 2025-02-23 06:14 | ECG_ITS ---
APPROVED REPORT Exam: Resting ECG HR:81 bpm ECG Measurements Heart Rate 81 AXES SD 151 P 77 QRSd 101 QRS 76 QT 412 T 71 QTc 450 Conclusion SINUS RHYTHM NONSPECIFIC T-WAVE ABNORMALITY BORDERLINE ECG UNCONFIRMED REPORT Electronically signed by : Deon Mancilla MD 02/24/2025 08:23:11
[2025-02-23 06:31] LABS: ABG HCO3 18.9 mmhg (22.0-26.0); ABG PCO2 30.6 mmhg (35.0-45.0); ABG PH 7.41 mmol/L (7.35-7.45); ABG PO2 91.1 mmhg (80-100); ABG TCO2 19.8 mmhg (23-27)
[2025-02-23 06:36] LABS: PEEP 5; Source Right Brachial
[2025-02-23] MEDS: FAMOTIDINE 20MG/2ML VIAL 20 MG IV ×2 (08:02→20:23)
--- NOTE | 2025-02-23 08:07 | EXP.PN ---
Subjective *Date: 02/23/25 *Time: 09:13 Interval history: Nurses state patient has had a stable night. Remains on propofol drip. They have started to decrease sedation for probable SBT today. She had a breathing trial yesterday and did well but seem to get tired towards the end of the day. She has had an adequate urinary output. IV fluids remain at 125 an hour. Labs this morning are pending. ABGs this morning showed a pH of 7.41 pCO2 of 30.6 bicarb of 18.9 and a pO2 of 91.1 with vent settings of 21% FiO2 tidal volumes 410 and PEEP of 5 and vent rate of 18. Exam Data for Last 24 hours Vital signs and Labs for Last 24 Hours: Temp Pulse Resp BP Pulse Ox O2 Del Method O2 Flow Rate 97.2 F L 77 18 109/61 L 97 Mechanical Ventilation 18 02/23/25 07:34 02/23/25 08:00 02/23/25 07:34 02/23/25 07:34 02/23/25 07:38 02/23/25 07:38 02/23/25 07:00 FiO2 21 02/23/25 07:38 Laboratory Results - last 24 hr 02/22/25 02:19: POC Glucose 105 02/22/25 08:16: POC Glucose 121 H 02/22/25 14:22: POC Glucose 100 02/22/25 19:53: POC Glucose 104 02/23/25 06:30: Specimen Source Right brachial, O2 % 21%, ABG pH 7.41, ABG pCO2 30.6 L, ABG pO2 91.1, ABG HCO3 18.9 L, ABG Total CO2 19.8 L, ABG O2 Saturation 97, ABG Base Excess -5.8 L, Kwame Test Patient unable, Vent Rate 18, Tidal Volume 410, PEEP 5 I & O for Last 24 hours: Intake & Output 02/20/25 02/21/25 02/22/25 02/23/25 11:59 11:59 11:59 11:59 Intake Total 151.424 / 715.617 6705.920 / 6808.920 4052.699 / 4052.699 Output Total 290 / 290 627 / 627 1503 / 1503 Balance -138.576 / -974.310 3990.920 / 6181.920 2549.699 / 2549.699 Weight 169 lb 1.513 oz 166 lb 10.711 oz 171 lb 15.369 oz Microbiology Reports for the Last 24 Hours: Microbiology 02/20/25 20:31 Anus CRE Surveillance Culture - Final No growth. Constitutional Constitutional: no acute distress Comments: Sedated on propofol drip *Routine Respiratory Exam Respiratory: Present patient mechanically ventilated, CTA bilaterally and symmetric chest movement *Routine Cardiovascular Exam Cardiovascular: Present RRR (Sinus rhythm) *Routine Abdominal Exam Abdominal: Present soft and normoactive bowel sounds; Absent tenderness Comments: Dodd cath to bedside drain is patent and draining clear yellow urine *Routine Extremities Exam Extremities: Present pulses intact; Absent edema *Routine Neurological Exam Comments: Sedated on vent Assessment and Plan *Assessment and plan (1) Respiratory failure: Status: Acute Category: Medical Code(s): J96.90 - Respiratory failure, unspecified, unspecified whether with hypoxia or hypercapnia (2) Suicide attempt by multiple drug overdose: Status: Acute Category: Medical Code(s): T50.912A - Poisoning by multiple unspecified drugs, medicaments and biological substances, intentional self-harm, initial encounter (3) Marijuana abuse: Status: Acute Category: Medical Code(s): F12.10 - Cannabis abuse, uncomplicated (4) Amphetamine abuse: Status: Acute Category: Medical Code(s): F15.10 - Other stimulant abuse, uncomplicated (5) Hypokalemia: Status: Acute Category: Medical Code(s): E87.6 - Hypokalemia (6) Depressive disorder: Status: Acute Category: Medical Code(s): F32.A - Depression, unspecified Plan Weaning trial again today. Hopefully extubated today. Pulmonology to see. Suicide precautions once extubated and not sedated. Dr. Jose ac - Saw patient, agree with above note.
--- NOTE | 2025-02-23 09:25 | PC.NURSE ---
Pt placed on SBT 11/10 21% Tidal volume = 515 RR = 22 Doing good at this time notified
--- NOTE | 2025-02-23 09:51 | P.CONS_ITS ---
History of Present Illness History of present illness: Ms. Puente is a 44-year-old female presented to the ER after intentional drug overdose intubated for airway support and pulmonary was called for further evaluation and management. [facility] Disclaimer: The information contained in this section may have been updated after the patient was seen, as this information can be updated by other users. Medical History (Updated 02/23/25 @ 10:39 by Iris Barrow MD) On mechanically assisted ventilation Depressive disorder Cervical radiculopathy Hypothyroidism Acid reflux Surgical History Hx of thyroidectomy Social History Smoking Status: Unknown if ever smoked alcohol intake: never substance use type: denies use current occupational status: employed Travel in the last 8 weeks?: None household members: spouse housing: house current occupation: [employer] current occupational exposures/hazards: No caffeine: No Have you lived/traveled outside [place] in past 30 days?: No Contact w/someone who lives/traveled outside [place] past 30 days?: No Exposure to someone with infectious disease in past 14 days?: No Do you have a fever (greater than 100.4 F or 38 C)?: No Have you tested positive for COVID-19?: No Exposed to someone with COVID-19 in past 14 days?: No Do you have a sore throat?: No Do you have a cough?: No Do you have any weakness?: No Do you have any diarrhea?: No Are you experiencing any unusual bleeding?: No Do you have any muscle aches/pain?: No Do you have any abdominal pain?: No Are you experiencing loss of taste or smell?: No Review of Systems Review of Systems Review of systems:: unable to obtain Review of systems (narrative): Intubated Pulmonology Exam Inpatient Vital signs and Labs for Last 24 Hours: Temp Pulse Resp BP Pulse Ox O2 Del Method O2 Flow Rate 97.1 F L 84 18 111/61 99 Mechanical Ventilation 18 02/23/25 08:58 02/23/25 08:58 02/23/25 08:58 02/23/25 08:58 02/23/25 08:58 02/23/25 08:58 02/23/25 07:00 FiO2 21 02/23/25 08:58 Laboratory Results - last 24 hr 02/22/25 02:19: POC Glucose 105 02/22/25 08:16: POC Glucose 121 H 02/22/25 14:22: POC Glucose 100 02/22/25 19:53: POC Glucose 104 02/23/25 06:30: Specimen Source Right brachial, O2 % 21%, ABG pH 7.41, ABG pCO2 30.6 L, ABG pO2 91.1, ABG HCO3 18.9 L, ABG Total CO2 19.8 L, ABG O2 Saturation 97, ABG Base Excess -5.8 L, Kwame Test Patient unable, Vent Rate 18, Tidal Volume 410, PEEP 5 I & O for Labs for Last 24 Hours: Intake & Output 02/20/25 02/21/25 02/22/25 02/23/25 23:59 23:59 23:59 23:59 Intake Total 2.321 / 2.321 3316.652 / 3316.652 6549.652 / 6549.652 1183.882 / 1183.882 Output Total 75 / 120 478 / 513 1217 / 1217 950 / 950 Balance -72.679 / -380.794 9338.652 / 2803.652 5332.652 / 5332.652 233.882 / 233.882 Weight 151 lb 3.794 oz 169 lb 1.513 oz 166 lb 10.711 oz 171 lb 15.369 oz Microbiology Reports for the Last 24 Hours: Microbiology 02/20/25 17:40 Sputum - Endotracheal Tube Aspirate Gram Stain - Final 02/20/25 17:40 Sputum - Endotracheal Tube Aspirate Sputum Culture - Preliminary 02/20/25 20:31 Anus CRE Surveillance Culture - Final No growth. Constitutional: Present mild distress Comment:: Intubated and Sedated Head: Present normocephalic and atraumatic Neck: Present normal inspection and trachea midline Respiratory: Present patient mechanically ventilated; Absent prolonged expiratory phase, rhonchi or wheezes Cardiac: Present S1/S2 and Tachycardia GI: Present soft; Absent distention or tenderness Skin: Present intact; Absent cyanosis Neuro: Present awake Comment:: Intubated Extremities: Present normal inspection; Absent clubbing or cyanosis Psychiatric: Present unable to assess Meds Home Medications and Allergies Home Medications ?Medication ?Instructions ?Recorded ?Confirmed ?Type famotidine 20 mg tablet 20 mg PO BID 03/18/18 History cyclobenzaprine 10 mg tablet 10 mg PO TIDP PRN Muscle Spasm 02/21/25 02/21/25 History escitalopram oxalate 10 mg tablet 10 mg PO DAILY 02/2102/21/25 History hydroxyzine HCl 25 mg tablet 25 mg PO QIDP PRN Anxiety 02/21/25 02/21/25 History levothyroxine 88 mcg tablet 88 mcg PO DAILYDM 02/21/25 02/21/25 History pregabalin 200 mg capsule 200 mg PO BID 02/21/2502/21 History quetiapine 50 mg tablet 50 mg PO HS 02/21/25 5 History New Prescriptions to Start Prescriptions: Allergies Allergy/AdvReac Type Severity Reaction Status Date / Time amoxicillin Allergy Severe Anaphylaxis Verified 10/14/18 12:40 azithromycin Allergy Severe Anaphylaxis Verified 10/14/18 12:40 Penicillins Allergy Severe Anaphylaxis Verified 10/14/18 12:40 Results Laboratory Findings 02/22/25 07:15 02/22/25 07:15 ABG ABG pH 7.41 mmol/L (7.35-7.45) 02/23/25 06:30 ABG pCO2 30.6 mmhg (35.0-45.0) L 02/23/25 06:30 ABG pO2 91.1 mmhg (80-100) 02/23/25 06:30 ABG O2 Saturation 97 % (90-100) 02/23/25 06:30 Abnormal lab findings: Abnormal Labs 02/20/25 02/20/25 02/20/25 16:53 16:54 17:01 WBC RBC 3.87 L Hgb Hct 35.5 L MCH 32.6 H MCHC 35.5 H Neut % (Auto) Neut # (Auto) ABG pH ABG pCO2 ABG pO2 ABG HCO3 ABG Total CO2 ABG Base Excess VBG pH 7.43 H VBG O2 Saturation 75.1 H Sodium Potassium 2.5 L* Chloride 111 H Carbon Dioxide BUN Creatinine 0.50 L Glucose 105 H POC Glucose Calcium AST Total Creatine Kinase 151 H Total Protein Albumin Salicylates < 1.0 L Acetaminophen < 10 L Ur Amphetamines Screen Positive H U Marijuana (THC) Screen Positive H 02/20/25 02/21/25 02/21/25 19:23 07:23 19:30 WBC RBC 3.42 L Hgb 11.3 L D Hct 31.3 L MCH 33.0 H MCHC 36.1 H Neut % (Auto) 80.8 H Neut # (Auto) 8.3 H ABG pH 7.47 H ABG pCO2 ABG pO2 158.3 H ABG HCO3 26.3 H ABG Total CO2 27.4 H ABG Base Excess 2.6 H VBG pH VBG O2 Saturation Sodium Potassium 2.5 L* Chloride 114 H Carbon Dioxide BUN Creatinine 0.50 L Glucose POC Glucose 114 H Calcium AST Total Creatine Kinase Total Protein Albumin Salicylates Acetaminophen Ur Amphetamines Screen U Marijuana (THC) Screen 02/22/25 02/22/25 02/22/25 06:00 07:15 08:16 WBC 12.0 H RBC 3.95 L Hgb Hct MCH 32.4 H MCHC Neut % (Auto) Neut # (Auto) 9.4 H ABG pH ABG pCO2 30.4 L ABG pO2 77.9 L ABG HCO3 17.7 L ABG Total CO2 18.7 L ABG Base Excess -7.3 L VBG pH VBG O2 Saturation Sodium 147 H Potassium Chloride 123 H Carbon Dioxide 21 L BUN 4 L D Creatinine 0.40 L Glucose POC Glucose 121 H Calcium 7.7 L AST 50 H D Total Creatine Kinase Total Protein 5.9 L Albumin 3.3 L Salicylates Acetaminophen Ur Amphetamines Screen U Marijuana (THC) Screen 02/23/25 06:30 WBC RBC Hgb Hct MCH MCHC Neut % (Auto) Neut # (Auto) ABG pH ABG pCO2 30.6 L ABG pO2 ABG HCO3 18.9 L ABG Total CO2 19.8 L ABG Base Excess -5.8 L VBG pH VBG O2 Saturation Sodium Potassium Chloride Carbon Dioxide BUN Creatinine Glucose POC Glucose Calcium AST Total Creatine Kinase Total Protein Albumin Salicylates Acetaminophen Ur Amphetamines Screen U Marijuana (THC) Screen Assessment and Plan *Assessment and plan (1) On mechanically assisted ventilation: Status: Acute Category: Medical Code(s): Z99.11 - Dependence on respirator [ventilator] status Plan Ms. Puente is a 44-year-old female presented to the ER after intentional drug overdose intubated for airway support and pulmonary was called for further evaluation and management. Pulmonary has been managing her ventilator over the weekend. CXR-ray clear with no infiltrates. Blood gas did not show any evidence of hypoxic/hypercarbic respiratory failure. Tracheal aspirate cultures no organisms so far. Afebrile. Hemodynamically stable. Slight worsening leukocytosis this morning. Will closely monitor Afebrile. Hemodynamically stable. Initially noted to have hypokalemia, repleted. Potassium this morning 4. Will discontinue potassium supplementation. Patient underwent spontaneous breathing trial this morning. No significant events. Tolerating well. On minimal ventilator settings. Plan: Extubate to room air. DuoNebs 4 times daily as needed Aspiration precautions, speech and swallow evaluation No need for antibiotics from pulmonary standpoint given no evidence of airspace disease noted on her chest x-ray Behavioral/assessment immediately postextubation. Discontinue KCl supplementation given improving serum potassium levels now at 4.0. Thank you for involving pulmonary in this patient care.
--- NOTE | 2025-02-23 10:20 | PC.NURSE ---
pt extubated at this time. 1:1 sitter at bedside. pt alert and oriented, able to follow commands. pt 100% on RA. Dr. Garcia notified.
--- NOTE | 2025-02-23 10:34 | PC.NURSE ---
[facility] notified of patient being extubated.
--- NOTE | 2025-02-23 10:40 | PC.WOUNDNOTE ---
Spoke w/ J Elvira @ Behavioral Health about consult for pt. States she will have someone come to see pt once pt is more awake and able to hold a conversation. Primary nurse aware.
--- NOTE | 2025-02-23 11:29 | PC.NURSE ---
pt mocking staff, cussing at . pt keeps making faces and sticking tongue out.
--- NOTE | 2025-02-23 12:25 | PC.NURSE ---
Cande, dispute specialist at bedside.
--- NOTE | 2025-02-23 12:40 | PC.NURSE ---
Cande, curatorial specialist unable to talk with patient. Staff called to beside for behavior. pt attempting to pull all lines, get out of bed. Told Cande I will shoot you. Attempting to hit and bite staff. staff attempted to redirect and reorient patient.
--- NOTE | 2025-02-23 12:51 | PC.NURSE ---
Security at bedside.
--- NOTE | 2025-02-23 13:10 | PC.NURSE ---
pt attempting to get up and leave. pt pulling off all monitors and biting them, hitting the end of the bed.
--- NOTE | 2025-02-23 13:18 | PC.NURSE ---
Vu Pizano, HOSPICE SPIRITUAL CARE COORDINATOR Behavioral health at bedside.
--- NOTE | 2025-02-23 13:39 | SW/DCPLANNER ---
Addendum entered by [facility] 02/26/25 13:10: I received a fax of signed transport form by [employer] Worker. I contacted [employer]: Makeda Macias and Varsha Juárez at bedside to transport patient. Addendum entered by [facility] 02/26/25 09:14: Zoran ([phone]) completed Zoom assessment w/ patient and approved her to go to [facility]. [facility] is currently waiting on [place] to complete transport paperwork, fax to [employer] and be signed off before patient can transport w/ [facility]. Addendum entered by [facility] 02/26/25 08:28: Updated patient information and involuntary hold paperwork has been faxed to [place]. I am currently waiting on a call back once information is received to complete Zoom process. Shahnaz Juárez is on site for this patient due to patient refusing to leave hallway. I will continue to follow up. Addendum entered by [facility] 02/24/25 13:35: Once medically cleared by MD I will work w/ nursing staff to complete Zoom assessment w/ [place]. Addendum entered by [facility] 02/23/25 16:08: The [employer] Day Worker did sign off on Involuntary Hold paperwork and information has been faxed to [place]. Once [place] reviews information and is ready to proceed w/ Zoom call they will call Sherrie in the ICU. I have left the iPad w/ Sherrie for Zoom call. Addendum entered by [facility] 02/23/25 14:42: Per Celsa Saha the [employer] Day Worker is currently in court and could be awhile before paperwork is completed. I have updated ICU staff. Original Note: Involuntary Hold paperwork has been completed and faxed to Celsa Saha w/ the [employer] for sign off.
--- NOTE | 2025-02-23 13:45 | PC.NURSE ---
pt f/c removed at this time. pt dragging bag around floor and attempting to pull at amaro. blood noted.
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
[2025-02-23] MEDS: LORazepam 2MG/ML VIAL 1 MG IV ×2 (14:12→14:35)
[2025-02-23] MEDS: HALOPERIDOL LACTATE 5 MG/ML VIAL IV (15:00)
--- NOTE | 2025-02-23 15:07 | PC.NURSE ---
Dr. Garcia at bedside to see patient.
--- NOTE | 2025-02-23 15:17 | P.PN_ITS ---
Subjective *Date: 02/23/25 *Time: 15:17 Interval history: Patient was extubated without difficulty this morning. After extubation she became combative with the staff and would not follow directions. She got out of bed multiple times and tried to leave her room. She was treated with IV L orazepam with little improvement in her symptoms and was eventually placed in soft restraints for her safety. She was given a 5 mg dose IM Haldol which did calm her down. Medical Exam Vital signs and Labs for Last 24 Hours: Vital Signs Temp Pulse Pulse Resp BP BP Pulse Ox 02/23/25 12:00 97.5 F L 91 H 20 136/83 99 02/23/25 11:56 99 02/23/25 11:00 97.5 F L 85 20 153/84 H 100 02/23/25 10:55 02/23/25 10:04 97.3 F L 85 17 150/93 H 98 02/23/25 09:25 22 98 02/23/25 08:58 02/23/25 08:58 97.1 F L 84 18 111/61 99 02/23/25 08:00 97.2 F L 77 18 111/61 97 02/23/25 08:00 77 02/23/25 07:38 97 02/23/25 07:34 97.2 F L 77 18 109/61 L 97 02/23/25 07:29 97.9 F 77 18 127/72 97 02/23/25 07:00 97.2 F L 79 18 127/72 99 02/23/25 06:59 02/23/25 06:42 18 96 02/23/25 06:00 97.2 F L 81 18 122/74 98 02/23/25 06:00 98 02/23/25 05:00 97.3 F L 78 18 122/72 98 02/23/25 05:00 02/23/25 05:00 97.5 F L 82 18 122/72 99 02/23/25 04:00 98 02/23/25 04:00 87 02/23/25 04:00 97.5 F L 81 18 114/61 99 02/23/25 03:00 02/23/25 03:00 97.0 F L 87 18 143/83 H 99 02/23/25 02:00 97.5 F L 82 18 112/62 97 02/23/25 01:17 18 98 02/23/25 01:00 02/23/25 01:00 97.5 F L 83 18 123/70 97 02/23/25 01:00 123/70 02/23/25 00:30 97.7 F 81 18 123/70 97 02/23/25 00:15 97.7 F 82 18 98 02/23/25 00:00 97.5 F L 85 18 99 02/23/25 00:00 134/81 02/23/25 00:00 84 02/23/25 00:00 84 99 02/22/25 23:45 97.5 F L 81 18 98 02/22/25 23:30 97.7 F 81 18 122/70 98 02/22/25 23:30 122/70 02/22/25 23:15 97.7 F 82 18 98 02/22/25 23:00 97.7 F 82 18 126/74 98 02/22/25 23:00 02/22/25 22:30 98.1 F 84 18 121/75 99 02/22/25 22:15 98.1 F 85 18 139/81 100 02/22/25 22:11 18 98 02/22/25 21:49 02/22/25 21:30 98.2 F 86 18 99 02/22/25 21:30 148/85 H 02/22/25 21:15 98.2 F 86 18 100 02/22/25 21:00 98.2 F 88 18 99 02/22/25 21:00 163/95 H 02/22/25 21:00 02/22/25 20:45 98.2 F 86 18 100 02/22/25 20:34 98.2 F 86 18 99 02/22/25 20:34 155/93 H 02/22/25 20:30 98.1 F 88 18 162/95 H 100 02/22/25 20:00 98.1 F 86 18 150/94 H 99 02/22/25 20:00 86 100 02/22/25 20:00 90 02/22/25 19:00 97.9 F 85 18 155/89 H 100 02/22/25 19:00 02/22/25 18:38 18 99 02/22/25 18:00 97.9 F 80 18 130/73 99 02/22/25 18:00 02/22/25 17:30 97.9 F 83 18 137/79 99 02/22/25 17:00 97.9 F 87 18 142/82 H 100 02/22/25 17:00 02/22/25 16:30 98.1 F 91 H 20 162/92 H 97 02/22/25 16:00 98.1 F 86 18 155/90 H 99 02/22/25 16:00 90 02/22/25 16:00 02/22/25 15:30 98.1 F 85 18 145/86 H 99 O2 Del Method O2 Flow Rate FiO2 02/23/25 12:00 Room Air 02/23/25 11:56 Room Air 02/23/25 11:00 Room Air 02/23/25 10:55 Room Air 02/23/25 10:04 Mechanical Ventilation 02/23/25 09:25 21 02/23/25 08:58 Mechanical Ventilation 02/23/25 08:58 Mechanical Ventilation 02/23/25 08:00 Mechanical Ventilation 02/23/25 08:00 02/23/25 07:38 Mechanical Ventilation 21 02/23/25 07:34 Mechanical Ventilation 21 02/23/25 07:29 Mechanical Ventilation 21 02/23/25 07:00 Mechanical Ventilation 18 02/23/25 06:59 Mechanical Ventilation 02/23/25 06:42 02/23/25 06:00 Mechanical Ventilation 21 02/23/25 06:00 21 02/23/25 05:00 Mechanical Ventilation 02/23/25 05:00 Mechanical Ventilation 02/23/25 05:00 Mechanical Ventilation 18 21 02/23/25 04:00 Mechanical Ventilation 21 02/23/25 04:00 02/23/25 04:00 Mechanical Ventilation 18 21 02/23/25 03:00 Mechanical Ventilation 02/23/25 03:00 Mechanical Ventilation 18 21 02/23/25 02:00 Mechanical Ventilation 18 21 02/23/25 01:17 21 02/23/25 01:00 Mechanical Ventilation 02/23/25 01:00 Mechanical Ventilation 18 21 02/23/25 01:00 02/23/25 00:30 02/23/25 00:15 02/23/25 00:00 02/23/25 00:00 02/23/25 00:00 02/23/25 00:00 Mechanical Ventilation 21 02/22/25 23:45 02/22/25 23:30 02/22/25 23:30 02/22/25 23:15 02/22/25 23:00 02/22/25 23:00 Mechanical Ventilation 02/22/25 22:30 02/22/25 22:15 Mechanical Ventilation 18 21 02/22/25 22:11 21 02/22/25 21:49 21 02/22/25 21:30 02/22/25 21:30 02/22/25 21:15 02/22/25 21:00 02/22/25 21:00 02/22/25 21:00 Mechanical Ventilation 02/22/25 20:45 02/22/25 20:34 02/22/25 20:34 02/22/25 20:30 02/22/25 20:00 Mechanical Ventilation 18 21 02/22/25 20:00 Mechanical Ventilation 21 02/22/25 20:00 02/22/25 19:00 02/22/25 19:00 Mechanical Ventilation 02/22/25 18:38 21 02/22/25 18:00 Mechanical Ventilation 21 02/22/25 18:00 21 02/22/25 17:30 Mechanical Ventilation 21 02/22/25 17:00 Mechanical Ventilation 21 02/22/25 17:00 Mechanical Ventilation 02/22/25 16:30 Mechanical Ventilation 21 02/22/25 16:00 Mechanical Ventilation 21 02/22/25 16:00 02/22/25 16:00 Mechanical Ventilation 02/22/25 15:30 Mechanical Ventilation 21 Intake and Output 02/22/25 02/23/25 02/23/25 23:59 07:59 15:59 Intake Total 2792.281 / 6549.652 1144.418 / 1335.386 190.968 / 1335.386 Output Total 575 / 1217 650 / 1725 1075 / 1725 Balance 2217.281 / 5332.652 494.418 / -389.614 -884.032 / -389.614 Intake: Intake, Total IV Amount 2792.281 / 6539.652 1144.418 / 1335.386 190.968 / 1335.386 D5W/0.9% NaCl w/40mEq KCL 1,000 2331 / 4240 662 / 807.833 145.833 / 807.833 ml @ 125 mls/hr IV .Q8H [facility] Rx #:[id number] propofoL 100 ml @ 60 MCG/KG/MIN 200 / 491 224.236 / 269.371 45.135 / 269.371 32.658 mls/hr IV .Q3H4M [facility] Rx #:[id number] Output: Output, Urine Amount 295 / 295 Output, Urine Amount (Catheter) 280 / 922 650 / 1725 1075 / 1725 Dodd 280 / 922 650 / 1725 1075 / 1725 Other: Number of Unmeasured Voids 0 0 Number of Bowel Movements 1 1 1 Weight 171 lb 15.369 oz Patient Weight 02/23/25 23:59 Weight 171 lb 15.369 oz Laboratory Results - last 24 hr 02/22/25 02:19: POC Glucose 105 02/22/25 08:16: POC Glucose 121 H 02/22/25 14:22: POC Glucose 100 02/22/25 19:53: POC Glucose 104 02/23/25 06:30: Specimen Source Right brachial, O2 % 21%, ABG pH 7.41, ABG pCO2 30.6 L, ABG pO2 91.1, ABG HCO3 18.9 L, ABG Total CO2 19.8 L, ABG O2 Saturation 97, ABG Base Excess -5.8 L, Kwame Test Patient unable, Vent Rate 18, Tidal Volume 410, PEEP 5 I & O for Labs for Last 24 Hours: Intake & Output 02/20/25 02/21/25 02/22/25 02/23/25 23:59 23:59 23:59 23:59 Intake Total 2.321 / 2.321 3316.652 / 3316.652 6549.652 / 6549.652 1335.386 / 1335.386 Output Total 75 / 120 478 / 513 1217 / 1217 1725 / 1725 Balance -72.679 / -016.008 3451.652 / 2803.652 5332.652 / 5332.652 -389.614 / -389.614 Weight 151 lb 3.794 oz 169 lb 1.513 oz 166 lb 10.711 oz 171 lb 15.369 oz Microbiology Reports for the Last 24 Hours: Microbiology 02/20/25 17:40 Sputum - Endotracheal Tube Aspirate Gram Stain - Final 02/20/25 17:40 Sputum - Endotracheal Tube Aspirate Sputum Culture - Preliminary Constitutional: Present combative Comment:: In 4 point soft restraints, shakes her head no to most all questions. Member of nursing staff is at the bedside Respiratory: Present CTA bilaterally; Absent respiratory distress Cardiac: Present Reg Rate and Rhythm Assessment and Plan *Assessment and plan (1) Respiratory failure: Status: Acute Category: Medical Code(s): J96.90 - Respiratory failure, unspecified, unspecified whether with hypoxia or hypercapnia (2) Suicide attempt by multiple drug overdose: Status: Acute Qualifiers: Encounter type: initial encounter Qualified Code(s): T50.912A - Poisoning by multiple unspecified drugs, medicaments and biological substances, intentional self-harm, initial encounter Category: Medical Code(s): T50.912A - Poisoning by multiple unspecified drugs, medicaments and biological substances, intentional self-harm, initial encounter (3) Marijuana abuse: Status: Acute Category: Medical Code(s): F12.10 - Cannabis abuse, uncomplicated (4) Amphetamine abuse: Status: Acute Category: Medical Code(s): F15.10 - Other stimulant abuse, uncomplicated (5) Hypokalemia: Status: Acute Category: Medical Code(s): E87.6 - Hypokalemia (6) Depressive disorder: Status: Acute Category: Medical Code(s): F32.A - Depression, unspecified (7) Combative behavior: Status: Acute Category: Medical Code(s): R46.89 - Other symptoms and signs involving appearance and behavior Plan Notes reviewed, form completed to request an involuntary hold for psych evaluation. Continue use of soft restraints, and one on one monitoring with suicide precautions
--- NOTE | 2025-02-23 15:48 | PC.NURSE ---
pt's , Lawrence, to bedside. Lawrence states he is going home at this time, phone number left with staff and password in place.
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
--- NOTE | 2025-02-23 17:09 | PC.NURSE ---
Cayden Morales called at this time states patient needs medically cleared prior to evaluation. Dr. Garcia agreed to obtain zoom tomorrow. Cayden states to call back to the hotline in the morning after patient is cleared.
[2025-02-23 17:55] LABS: POC Glucose,Bedside 124 (70-110)
[2025-02-23 17:55] LABS: POC Glucose,Bedside 118 (70-110)
--- NOTE | 2025-02-23 18:20 | PC.NURSE ---
Pt offered to perform swallow eval. pt began to cuss at staff.
--- NOTE | 2025-02-23 18:27 | PC.NURSE ---
Dr. Garcia at bedside, MD states to continue restraints at this time.
--- NOTE | 2025-02-23 18:31 | P.PN_ITS ---
Subjective *Date: 02/23/25 *Time: 18:31 Interval history: Patient is less combative after receiving Haldol, still in soft restraints. Medical Exam Vital signs and Labs for Last 24 Hours: Vital Signs Temp Pulse Pulse Resp BP BP Pulse Ox 02/23/25 18:00 217/106 H 02/23/25 17:00 02/23/25 15:58 98 02/23/25 15:54 100 H 18 197/105 H 97 02/23/25 15:00 106 H 18 174/90 H 99 02/23/25 15:00 02/23/25 14:56 106 H 174/90 H 96 02/23/25 14:39 178/92 H 02/23/25 14:23 97.8 F 102 H 16 149/76 H 97 02/23/25 13:59 97.3 F L 96 H 160/88 H 99 02/23/25 13:59 96 H 160/88 H 96 02/23/25 13:00 02/23/25 12:00 97.5 F L 87 17 136/83 100 02/23/25 12:00 85 02/23/25 12:00 97.5 F L 91 H 20 136/83 99 02/23/25 11:56 99 02/23/25 11:01 97.5 F L 85 24 153/84 H 99 02/23/25 11:00 97.5 F L 85 20 153/84 H 100 02/23/25 10:55 02/23/25 10:04 97.3 F L 85 17 150/93 H 98 02/23/25 09:25 22 98 02/23/25 08:58 02/23/25 08:58 97.1 F L 84 18 111/61 99 02/23/25 08:00 97.2 F L 77 18 111/61 97 02/23/25 08:00 77 02/23/25 07:38 97 02/23/25 07:34 97.2 F L 77 18 109/61 L 97 02/23/25 07:29 97.9 F 77 18 127/72 97 02/23/25 07:00 97.2 F L 79 18 127/72 99 02/23/25 06:59 02/23/25 06:42 18 96 02/23/25 06:00 97.2 F L 81 18 122/74 98 02/23/25 06:00 98 02/23/25 05:00 97.3 F L 78 18 122/72 98 02/23/25 05:00 02/23/25 05:00 97.5 F L 82 18 122/72 99 02/23/25 04:00 98 02/23/25 04:00 87 02/23/25 04:00 97.5 F L 81 18 114/61 99 02/23/25 03:00 02/23/25 03:00 97.0 F L 87 18 143/83 H 99 02/23/25 02:00 97.5 F L 82 18 112/62 97 02/23/25 01:17 18 98 02/23/25 01:00 02/23/25 01:00 97.5 F L 83 18 123/70 97 02/23/25 01:00 123/70 02/23/25 00:30 97.7 F 81 18 123/70 97 02/23/25 00:15 97.7 F 82 18 98 02/23/25 00:00 97.5 F L 85 18 99 02/23/25 00:00 134/81 02/23/25 00:00 84 02/23/25 00:00 84 99 02/22/25 23:45 97.5 F L 81 18 98 02/22/25 23:30 97.7 F 81 18 122/70 98 02/22/25 23:30 122/70 02/22/25 23:15 97.7 F 82 18 98 02/22/25 23:00 97.7 F 82 18 126/74 98 02/22/25 23:00 02/22/25 22:30 98.1 F 84 18 121/75 99 02/22/25 22:15 98.1 F 85 18 139/81 100 02/22/25 22:11 18 98 02/22/25 21:49 02/22/25 21:30 98.2 F 86 18 99 02/22/25 21:30 148/85 H 02/22/25 21:15 98.2 F 86 18 100 02/22/25 21:00 98.2 F 88 18 99 02/22/25 21:00 163/95 H 02/22/25 21:00 02/22/25 20:45 98.2 F 86 18 100 02/22/25 20:34 98.2 F 86 18 99 02/22/25 20:34 155/93 H 02/22/25 20:30 98.1 F 88 18 162/95 H 100 02/22/25 20:00 98.1 F 86 18 150/94 H 99 02/22/25 20:00 86 100 02/22/25 20:00 90 02/22/25 19:00 97.9 F 85 18 155/89 H 100 02/22/25 19:00 02/22/25 18:38 18 99 O2 Del Method O2 Flow Rate FiO2 02/23/25 18:00 02/23/25 17:00 Room Air 02/23/25 15:58 Room Air 02/23/25 15:54 Room Air 02/23/25 15:00 Room Air 02/23/25 15:00 Room Air 02/23/25 14:56 Room Air 02/23/25 14:39 02/23/25 14:23 Room Air 02/23/25 13:59 Room Air 02/23/25 13:59 Room Air 02/23/25 13:00 Room Air 02/23/25 12:00 Room Air 02/23/25 12:00 02/23/25 12:00 Room Air 02/23/25 11:56 Room Air 02/23/25 11:01 Room Air 02/23/25 11:00 Room Air 02/23/25 10:55 Room Air 02/23/25 10:04 Mechanical Ventilation 02/23/25 09:25 02/23/25 08:58 Mechanical Ventilation 02/23/25 08:58 Mechanical Ventilation 02/23/25 08:00 Mechanical Ventilation 02/23/25 08:00 02/23/25 07:38 Mechanical Ventilation 02/23/25 07:34 Mechanical Ventilation 02/23/25 07:29 Mechanical Ventilation 02/23/25 07:00 Mechanical Ventilation 18 02/23/25 06:59 Mechanical Ventilation 02/23/25 06:42 02/23/25 06:00 Mechanical Ventilation 02/23/25 06:00 02/23/25 05:00 Mechanical Ventilation 02/23/25 05:00 Mechanical Ventilation 02/23/25 05:00 Mechanical Ventilation 18 02/23/25 04:00 Mechanical Ventilation 02/23/25 04:00 02/23/25 04:00 Mechanical Ventilation 18 21 02/23/25 03:00 Mechanical Ventilation 02/23/25 03:00 Mechanical Ventilation 18 21 02/23/25 02:00 Mechanical Ventilation 18 21 02/23/25 01:17 21 02/23/25 01:00 Mechanical Ventilation 02/23/25 01:00 Mechanical Ventilation 18 21 02/23/25 01:00 02/23/25 00:30 02/23/25 00:15 02/23/25 00:00 02/23/25 00:00 02/23/25 00:00 02/23/25 00:00 Mechanical Ventilation 21 02/22/25 23:45 02/22/25 23:30 02/22/25 23:30 02/22/25 23:15 02/22/25 23:00 02/22/25 23:00 Mechanical Ventilation 02/22/25 22:30 02/22/25 22:15 Mechanical Ventilation 18 21 02/22/25 22:11 21 02/22/25 21:49 21 02/22/25 21:30 02/22/25 21:30 02/22/25 21:15 02/22/25 21:00 02/22/25 21:00 02/22/25 21:00 Mechanical Ventilation 02/22/25 20:45 02/22/25 20:34 02/22/25 20:34 02/22/25 20:30 02/22/25 20:00 Mechanical Ventilation 18 21 02/22/25 20:00 Mechanical Ventilation 21 02/22/25 20:00 02/22/25 19:00 02/22/25 19:00 Mechanical Ventilation 02/22/25 18:38 21 Intake and Output 02/23/25 02/23/25 02/23/25 07:59 15:59 23:59 Intake Total 1144.418 / 1335.386 190.968 / 1335.386 Output Total 650 / 1925 1275 / 1925 Balance 494.418 / -589.614 -1084.032 / -589.614 Intake: Intake, Total IV Amount 1144.418 / 1335.386 190.968 / 1335.386 D5W/0.9% NaCl w/40mEq KCL 1,000 662 / 807.833 145.833 / 807.833 ml @ 125 mls/hr IV .Q8H [facility] Rx #:[id number] propofoL 100 ml @ 60 MCG/KG/MIN 224.236 / 269.371 45.135 / 269.371 32.658 mls/hr IV .Q3H4M [facility] Rx #:[id number] Output: Output, Urine Amount 200 / 200 Output, Urine Amount (Catheter) 650 / 1725 1075 / 1725 Dodd 650 / 1725 1075 / 1725 Other: Number of Unmeasured Voids 1 Number of Bowel Movements 1 1 Weight 171 lb 15.369 oz Patient Weight 02/23/25 23:59 Weight 171 lb 15.369 oz Laboratory Results - last 24 hr 02/22/25 02:19: POC Glucose 105 02/22/25 08:16: POC Glucose 121 H 02/22/25 14:22: POC Glucose 100 02/22/25 19:53: POC Glucose 104 02/23/25 02:09: POC Glucose 118 H 02/23/25 06:30: Specimen Source Right brachial, O2 % 21%, ABG pH 7.41, ABG pCO2 30.6 L, ABG pO2 91.1, ABG HCO3 18.9 L, ABG Total CO2 19.8 L, ABG O2 Saturation 97, ABG Base Excess -5.8 L, Kwame Test Patient unable, Vent Rate 18, Tidal Volume 410, PEEP 5 02/23/25 08:02: POC Glucose 124 H I & O for Labs for Last 24 Hours: Intake & Output 02/20/25 02/21/25 02/22/25 02/23/25 23:59 23:59 23:59 23:59 Intake Total 2.321 / 2.321 3316.652 / 3316.652 6549.652 / 6549.652 1335.386 / 1335.386 Output Total 75 / 120 478 / 513 1217 / 1217 1925 / 1925 Balance -72.679 / -319.149 7388.652 / 2803.652 5332.652 / 5332.652 -589.614 / - 589.614 Weight 151 lb 3.794 oz 169 lb 1.513 oz 166 lb 10.711 oz 171 lb 15.369 oz Microbiology Reports for the Last 24 Hours: Microbiology 02/20/25 17:40 Sputum - Endotracheal Tube Aspirate Gram Stain - Final 02/20/25 17:40 Sputum - Endotracheal Tube Aspirate Sputum Culture - Preliminary Assessment and Plan *Assessment and plan (1) Respiratory failure: Status: Acute Category: Medical Code(s): J96.90 - Respiratory failure, unspecified, unspecified whether with hypoxia or hypercapnia (2) Suicide attempt by multiple drug overdose: Status: Acute Qualifiers: Encounter type: initial encounter Qualified Code(s): T50.912A - Poisoning by multiple unspecified drugs, medicaments and biological substances, intentional self-harm, initial encounter Category: Medical Code(s): T50.912A - Poisoning by multiple unspecified drugs, medicaments and biological substances, intentional self-harm, initial encounter (3) Marijuana abuse: Status: Acute Category: Medical Code(s): F12.10 - Cannabis abuse, uncomplicated (4) Amphetamine abuse: Status: Acute Category: Medical Code(s): F15.10 - Other stimulant abuse, uncomplicated (5) Hypokalemia: Status: Acute Category: Medical Code(s): E87.6 - Hypokalemia (6) Depressive disorder: Status: Acute Category: Medical Code(s): F32.A - Depression, unspecified (7) Combative behavior: Status: Acute Category: Medical Code(s): R46.89 - Other symptoms and signs involving appearance and behavior Plan Continue current treatment. Will order Haldol every 4 hours as needed. Hospi talist service to see patient overnight every 4 hours due to continued need for restraints.
--- NOTE | 2025-02-23 21:15 | PC.NURSE ---
Called Marino Fontaine COUNTER CLERK hospitalist, due to patient was due to to void and still no voiding performed and due to patient's condition patient unable to follow commands and express if urgency is felt and or to to actually void. Bladder scan performed and a reading of 577 obtained. called and spoke with Marino and new order obtained to place a indwelling amaro cath.
[2025-02-23] MEDS: HALOPERIDOL LACTATE 5 MG/ML VIAL 4 MG IM (21:38)
--- NOTE | 2025-02-23 22:02 | PC.NURSE ---
amaro cath inserted after obtaining telepohone order and a 650 ml obtained. Patient is starting to have period.
--- NOTE | 2025-02-23 22:37 | EXP.EVENT.NO ---
22:00 Have come in to evaluate Dr. Garcia's patient Ms. Doyle. Patient vital signs are stable on the monitor. She has a one-on-one person in the room with her. exam: Did not disturb the patient as I was able to evaluate her standing at the bedside skin is pink warm and dry patient was sleeping deeply respirations were normal Since we are covering for the doctor we will also once again check the patient at 2 PM and 6 AM 0200 : Patient tried to talk with her son but throat is very hoarse hard to hear what she is saying since she was intubated 2 days ago. Went ahead and took the patient out of her restraints she is very calm right now tried to have a right what she needed but she was unable to just could not read it she tried to but was not readable. Patient is calm at this time prescription she wanted some Chloraseptic she did not but I said I put some ice chips and she wanted those patient was given ice chips without any difficulty and is presently resting in bed without restraints but does have one-on-one sitter. Teaching was done that her voice would come back but it might be up to a week before her throat feels 100% better 0600: Patient sleeping soundly in the room no restraints
[2025-02-24] VITALS (49 sets, daily range): BP systolic 105–151; BP diastolic 54–97; PULSE 85–111; RESP 14–27; TEMP 36.6–36.8; O2SAT 96–100; BMI 26.1
--- NOTE | 2025-02-24 | PC.NURSE ---
while performing routine rounds and assessing restraints, I was able to safely remove both sets of mitten and lower extremity restraints and patient tolerated well. Patient does still have bilateral upper extremity in use at this time and will continue until I am able to safely assess patient without them and or the provider provides an order for the d/c of them. VSS at this time.
--- NOTE | 2025-02-24 02:47 | PC.NURSE ---
Patient has been officially been removed from restraints at this time. NAD noted in condition and VSS. while rounding and performing restraint assessment, I was able to remove restraints at this time.
[2025-02-24 03:09] LABS: POC Glucose,Bedside 85 (70-110)
[2025-02-24 03:09] LABS: POC Glucose,Bedside 83 (70-110)
--- NOTE | 2025-02-24 06:44 | PC.NURSE ---
patient is alert and now oriented to self only, sitter at bedside for SI. patient is alert and calm this am and has been out of restraints since 0200 and doing well, patient is no longer fighting staff and or kicking or spitting towards staff. Very cooperative with care and apologetic towards staff and thanking staff this am. Vital signs are stable and are doing well with NAD noted in condition.
--- NOTE | 2025-02-24 06:51 | ECG_ITS ---
APPROVED REPORT Exam: Resting ECG HR:89 bpm ECG Measurements Heart Rate 89 AXES CA 181 P 70 QRSd 90 QRS 67 QT 382 T 55 QTc 428 Conclusion SINUS RHYTHM MODERATE T-WAVE ABNORMALITY, CONSIDER ANTERIOR ISCHEMIA [-0.1+ mV T-WAVE IN V3/V4] ABNORMAL ECG UNCONFIRMED REPORT Electronically signed by : Deon Mancilla MD 02/24/2025 08:21:21
--- NOTE | 2025-02-24 07:30 | P.PN_ITS ---
Subjective *Date: 02/24/25 *Time: 09:13 Interval history: Nurses report that patient has been stable throughout the night with stable vital signs. She was unable to void and Amaro catheter was reinserted. Restraints were removed around 2 AM. In the middle of the night patient made a total turnaround. She was wondering where she was and what had happened. She had no recall of the previous days. Patient remains under suicide watch with a one-on-one attendance. Patient states that she has no pain and is not short of breath. She does have a sore throat. She does not feel like eating. She has had some ice chips. She does not recall the previous days or why she is hospitalized. She is tearful. Exam Data for Last 24 hours Vital signs and Labs for Last 24 Hours: Temp Pulse Resp BP Pulse Ox O2 Del Method O2 Flow Rate 98.0 F 90 14 119/75 97 Room Air 18 02/24/25 07:00 02/24/25 07:00 02/24/25 07:00 02/24/25 07:00 02/24/25 07:00 02/24/25 07:00 02/23/25 07:00 FiO2 21 02/23/25 09:25 Laboratory Results - last 24 hr 02/23/25 02:09: POC Glucose 118 H 02/23/25 08:02: POC Glucose 124 H 02/23/25 22:10: POC Glucose 83 02/24/25 03:02: POC Glucose 85 I & O for Last 24 hours: Intake & Output 02/21/25 02/22/25 02/23/25 02/24/25 11:59 11:59 11:59 11:59 Intake Total 151.424 / 998.506 0430.920 / 6808.920 4243.667 / 4243.667 60 / 60 Output Total 290 / 290 627 / 627 2278 / 2278 1600 / 1600 Balance -138.576 / -295.544 3438.920 / 6181.920 1965.667 / 1965.667 -1540 / - 1540 Weight 169 lb 1.513 oz 166 lb 10.711 oz 171 lb 15.369 oz 172 lb 2.896 oz Microbiology Reports for the Last 24 Hours: Microbiology 02/20/25 17:40 Sputum - Endotracheal Tube Aspirate Gram Stain - Final 02/20/25 17:40 Sputum - Endotracheal Tube Aspirate Sputum Culture - Preliminary Constitutional Constitutional: no acute distress Comments: Patient assist with exam. She appears comfortable. It does hurt for her to talk. She sounds hoarse. *Routine Respiratory Exam Respiratory: Present CTA bilaterally (Anteriorly and posteriorly) *Routine Cardiovascular Exam Cardiovascular: Present RRR (Sinus rhythm) *Routine Abdominal Exam Abdominal: Present soft and normoactive bowel sounds; Absent tenderness or distended *Routine Extremities Exam Extremities: Present pulses intact; Absent edema *Routine Neurological Exam Neurological: Present alert and oriented X3 Assessment and Plan *Assessment and plan (1) Respiratory failure: Status: Acute Category: Medical Code(s): J96.90 - Respiratory failure, unspecified, unspecified whether with hypoxia or hypercapnia (2) Suicide attempt by multiple drug overdose: Status: Acute Qualifiers: Encounter type: initial encounter Qualified Code(s): T50.912A - Poisoning by multiple unspecified drugs, medicaments and biological substances, intentional self-harm, initial encounter Category: Medical Code(s): T50.912A - Poisoning by multiple unspecified drugs, medicaments and biological substances, intentional self-harm, initial encounter (3) Marijuana abuse: Status: Acute Category: Medical Code(s): F12.10 - Cannabis abuse, uncomplicated (4) Amphetamine abuse: Status: Acute Category: Medical Code(s): F15.10 - Other stimulant abuse, uncomplicated (5) Hypokalemia: Status: Acute Category: Medical Code(s): E87.6 - Hypokalemia (6) Depressive disorder: Status: Acute Category: Medical Code(s): F32.A - Depression, unspecified (7) Combative behavior: Status: Acute Category: Medical Code(s): R46.89 - Other symptoms and signs involving appearance and behavior Plan Will try clear liquids. May be out of bed in a chair. Continue one-on-one for now. Will need follow-up visit by behavioral provider Dr. Garcia entry - Saw patient, agree with above note. OK to resume some of her home meds. Remove amaro catheter now.
--- NOTE | 2025-02-24 08:11 | PC.NURSE ---
At 8:00am the patient woke up out of a sleep and started saying Anaya, Anaya, Anaya and the blood pressure cuff started going off and she ripped the Seizure pad off and reached over the bed and grabbed her ice chips that had melted and threw the whole cup on me (Jenifer MAZARIEGOS), the flores board and on the floor. I then went to the door way and asked for someone to come get her. The nurse (Brenna BLACK) and SRNA (Kristel) then came to the room immediately.
[2025-02-24 08:22] LABS: POC Glucose,Bedside 91 (70-110)
[2025-02-24] MEDS: FAMOTIDINE 20MG/2ML VIAL 20 MG IV ×2 (09:07→20:00)
[2025-02-24] MEDS: PHENOL THROAT SPRAY 177 ML BOTTLE MM (09:53)
--- NOTE | 2025-02-24 10:01 | PC.NURSE ---
1000: RN attempted to advance from ice chips; patient has been unable to swallow without choking on water for first initial trial. Patient ET turn her head and then swallow, unable to comprehend/follow the instruction at this time. Patient c/o sore throat, administered sore throat spray and will attempt trial again. 1015: Second attempt to have patient swallow was unsuccessful with choking on second drink of water. Speech to evaluate today. Called the ST who confirmed that they were going to see her today.
[2025-02-24 14:17] LABS: POC Glucose,Bedside 94 (70-110)
--- NOTE | 2025-02-24 14:26 | DIET.NUTRFU ---
Patient has been NPO since admit on 02/20. She was extubated 02/23. Trialed clear liquids today with nursing and exhibited difficulty. TAPROOM ATTENDANT to eval today for appropriate diet. Patient is still confused and lethargic. Nursing reported possible discharge to [facility] later today.
[2025-02-24 14:31] LABS: Chloride 114 mmol/L (98-107); Sodium 140 mmol/L (136-145)
[2025-02-24 14:32] LABS: Potassium 3.6 mmoL/L (3.5-5.1)
[2025-02-24 14:34] LABS: Blood Urea Nitrogen 4 mg/dl (7-17); Creatinine Clearance Estimated 219 mL/min (50-200); Creatinine,Serum 0.40 mg/dl (0.52-1.04); Estimated Glomerular Filt Rate 173 ml/min (>60); GFR (African American) 209 ML/MIN (>60)
[2025-02-24 14:35] LABS: Anion Gap 9.6 mEq/L (5-15); Calcium 8.3 mg/dl (8.4-10.2); Carbon Dioxide 20 mmol/L (22.0-30.0); Glucose 84 mg/dl (74-100)
[2025-02-24] MEDS: DEXTROSE 5 % IN WATER 1,000 ML 125 ML IV ×2 (14:51→23:17)
--- NOTE | 2025-02-24 18:37 | PC.NURSE ---
1730: Patient unable to void since the removal of the amaro catheter this morning. After cursing the speech therapist and refusing to complete the evaluation for swallowing she was offered some water via spoon that she was able to tolerate without choking, she was then offered some via straw but again began to choke on the water. She refused to try any additional oral fluids offered for the remainder of the shift. She was then started on IVF for hydration and to prompt voiding. On assessment this afternoon the patient c/o some abdominal pain and bladder discomfort, after attempting to void unsuccessfully bladder scan revealed >800 ml of urine, the computer information systems professor provider was notified with orders to anchor a amaro catheter given. With the assistance of staff the patient had one inserted with moderate distress demonstrated. She had 1000 ml out immediately. Patient tolerated procedure with some cursing and kicking but without any acute issues.
[2025-02-24 20:24] LABS: POC Glucose,Bedside 100 (70-110)
[2025-02-25] VITALS (21 sets, daily range): BP systolic 113–136; BP diastolic 72–95; PULSE 81–118; RESP 14–24; TEMP 36.5–37.1; O2SAT 91–99; BMI 25.6
[2025-02-25 02:09] LABS: POC Glucose,Bedside 94 (70-110)
[2025-02-25] MEDS: LEVOTHYROXINE 88MCG (0.088MG) TAB 88 MCG PO (06:00)
[2025-02-25] MEDS: DEXTROSE 5 % IN WATER 1,000 ML 125 ML IV (06:54)
[2025-02-25] MEDS: FAMOTIDINE 20MG/2ML VIAL 20 MG IV (08:03)
--- NOTE | 2025-02-25 08:14 | EXP.ACUTE.PN ---
Subjective *Date: 02/25/25 *Time: 09:04 Interval history: Patient is awake and alert this am. Her only complaint is of a sore throat. She does not remember a lot of what happened the past few days. She denies any other pain. Medical Exam Vital signs and Labs for Last 24 Hours: Vital Signs Temp Pulse Resp BP Pulse Ox O2 Del Method 02/25/25 07:48 Room Air 02/25/25 07:00 101 H 18 136/86 99 Room Air 02/25/25 06:32 Room Air 02/25/25 06:00 99 H 20 127/83 97 Room Air 02/25/25 05:00 93 H 20 131/83 97 Room Air 02/25/25 04:55 Room Air 02/25/25 04:00 93 H 19 135/89 98 Room Air 02/25/25 04:00 97 Room Air 02/25/25 04:00 94 H 02/25/25 03:00 92 H 20 127/83 95 Room Air 02/25/25 03:00 Room Air 02/25/25 02:00 92 H 21 129/81 97 Room Air 02/25/25 01:00 85 21 126/73 97 Room Air 02/25/25 01:00 Room Air 02/25/25 00:00 98.7 F 81 14 129/81 96 Room Air 02/25/25 00:00 97 Room Air 02/25/25 00:00 98 H 02/24/25 23:00 88 17 131/85 98 Room Air 02/24/25 23:00 Room Air 02/24/25 22:00 93 H 25 H 133/84 98 Room Air 02/24/25 21:00 Room Air 02/24/25 21:00 88 22 138/85 99 Room Air 02/24/25 20:00 98.2 F 02/24/25 20:00 94 H 18 145/85 H 98 Room Air 02/24/25 20:00 99 Room Air 02/24/25 20:00 91 H 02/24/25 19:40 89 22 144/90 H 100 Room Air 02/24/25 19:00 92 H 24 151/88 H 100 Room Air 02/24/25 19:00 Room Air 02/24/25 18:00 135/83 02/24/25 18:00 91 H 22 135/83 98 Room Air 02/24/25 17:45 111 H 21 99 02/24/25 17:30 93 H 25 H 98 02/24/25 17:15 110 H 17 98 02/24/25 17:00 142/90 H 02/24/25 17:00 107 H 20 142/90 H 99 Room Air 02/24/25 17:00 Room Air 02/24/25 17:00 98.1 F 94 H 16 142/90 H 98 Room Air 02/24/25 16:45 92 H 24 99 02/24/25 16:30 90 22 100 02/24/25 16:15 91 H 25 H 99 02/24/25 16:00 137/84 02/24/25 16:00 92 H 22 137/84 99 Room Air 02/24/25 16:00 99 Room Air 02/24/25 16:00 90 02/24/25 16:00 98.1 F 92 H 24 137/84 99 Room Air 02/24/25 15:45 95 H 20 100 02/24/25 15:30 91 H 17 99 02/24/25 15:15 89 23 98 02/24/25 15:00 89 22 149/88 H 99 Room Air 02/24/25 15:00 149/88 H 02/24/25 15:00 Room Air 02/24/25 15:00 98.0 F 92 H 16 149/88 H 98 Room Air 02/24/25 14:45 93 H 24 98 02/24/25 14:30 95 H 22 98 02/24/25 14:15 95 H 25 H 98 02/24/25 14:00 94 H 24 131/81 97 02/24/25 13:00 Room Air 02/24/25 13:00 132/80 02/24/25 13:00 96 H 21 132/80 97 Room Air 02/24/25 12:45 99 H 20 98 02/24/25 12:30 95 H 24 98 02/24/25 12:15 93 H 21 98 02/24/25 12:00 129/81 02/24/25 12:00 98.1 F 91 H 23 129/81 98 Room Air 02/24/25 12:00 98.0 F 92 H 16 129/81 97 Room Air 02/24/25 12:00 97 Room Air 02/24/25 12:00 90 02/24/25 11:45 95 H 23 98 02/24/25 11:30 97 H 25 H 98 02/24/25 11:15 95 H 17 99 02/24/25 11:00 97 H 22 123/79 98 Room Air 02/24/25 11:00 Room Air 02/24/25 10:00 127/79 02/24/25 10:00 94 H 23 127/97 H 98 Room Air 02/24/25 09:45 93 H 22 98 02/24/25 09:30 93 H 27 H 97 02/24/25 09:15 98 H 24 98 02/24/25 09:00 Room Air 02/24/25 09:00 123/78 02/24/25 09:00 94 H 24 123/78 98 Room Air 02/24/25 08:45 92 H 22 97 02/24/25 08:30 91 H 20 96 Intake and Output 02/24/25 02/25/25 02/25/25 19:59 03:59 11:59 Intake Total 2081 Output Total 1150 / 4150 1550 / 4150 1450 / 4150 Balance -1068 / -2068 -550 / -2068 -450 / -8 Intake: Intake, Oral Amount 82 / 82 Intake, Total IV Amount 999 1000 / 1999 Dextrose 5 % in Water 1,000 ml 999 @ 125 mls/hr IV .Q8H [facility] Rx#: [id number] Output: Output, Urine Amount 0 / 200 200 / 200 Output, Urine Amount (Catheter) 1150 / 3950 1550 / 3950 1250 / 3950 Dodd 1150 / 3950 1550 / 3950 1250 / 3950 Other: Weight 168 lb 13.985 oz Patient Weight 02/25/25 11:59 Weight 168 lb 13.985 oz Laboratory Results - last 24 hr 02/24/25 08:15: POC Glucose 91 02/24/25 14:10: Sodium 140, Potassium 3.6, Chloride 114 H, Carbon Dioxide 20 L, Anion Gap 9.6, BUN 4 L, Creatinine 0.40 L, Estimated Creat Clear 219, Estimated GFR 173, Est GFR ( Amer) 209, Glucose 84, POC Glucose 94, Calcium 8.3 L 02/24/25 20:12: POC Glucose 100 02/25/25 02:02: POC Glucose 94 I & O for Labs for Last 24 Hours: Intake & Output 02/22/25 02/23/25 02/24/25 02/25/25 11:59 11:59 11:59 11:59 Intake Total 6808.920 / 6808.920 4243.667 / 4243.667 400 / 440 2082 / 2082 Output Total 627 / 627 2278 / 2278 2400 / 2400 4150 / 4150 Balance 6181.920 / 6181.920 1965.667 / 1965.667 -1999 / -2067 / Weight 166 lb 10.711 oz 171 lb 15.369 oz 172 lb 2.896 oz 168 lb 13.985 oz Microbiology Reports for the Last 24 Hours: Microbiology 02/20/25 17:40 Sputum - Endotracheal Tube Aspirate Gram Stain - Final 02/20/25 17:40 Sputum - Endotracheal Tube Aspirate Sputum Culture - Final Constitutional: Present no acute distress Respiratory: Present CTA bilaterally Cardiac: Present Reg Rate and Rhythm GI: Present soft and normal bowel sounds; Absent distention or tenderness Extremities: Absent edema, clubbing or cyanosis Skin: Present intact Neuro: Present alert and awake Assessment and Plan *Assessment and plan (1) Respiratory failure: Status: Acute Category: Medical Code(s): J96.90 - Respiratory failure, unspecified, unspecified whether with hypoxia or hypercapnia (2) Suicide attempt by multiple drug overdose: Status: Acute Qualifiers: Encounter type: initial encounter Qualified Code(s): T50.912A - Poisoning by multiple unspecified drugs, medicaments and biological substances, intentional self-harm, initial encounter Category: Medical Code(s): T50.912A - Poisoning by multiple unspecified drugs, medicaments and biological substances, intentional self-harm, initial encounter (3) Marijuana abuse: Status: Acute Category: Medical Code(s): F12.10 - Cannabis abuse, uncomplicated (4) Amphetamine abuse: Status: Acute Category: Medical Code(s): F15.10 - Other stimulant abuse, uncomplicated (5) Hypokalemia: Status: Acute Category: Medical Code(s): E87.6 - Hypokalemia (6) Depressive disorder: Status: Acute Category: Medical Code(s): F32.A - Depression, unspecified (7) Combative behavior: Status: Acute Category: Medical Code(s): R46.89 - Other symptoms and signs involving appearance and behavior Plan Patient is improving. Continue one-on-one care. Dr. Garcia entry - Saw patient, agree with above note. She was unable to urinate last night. Dodd was replaced and 1,000 mL of urine was drained from her bladder. Will start bladder training today. OK to advance diet today
[2025-02-25 08:16] LABS: POC Glucose,Bedside 118 (70-110)
--- NOTE | 2025-02-25 08:59 | PC.NURSE ---
Bladder training started at this time
--- NOTE | 2025-02-25 09:22 | PC.NURSE ---
Speech therapy stated they should be here to evaluate patient around 1100.
--- NOTE | 2025-02-25 11:05 | PC.NURSE ---
This RN went into pt room due to patient getting very restless and agitated at approx. 1030. She stated that she felt the urge to pee and wanted to stand up. I helped her stand and she reported that the urge had went away but she still felt some pressure. She was educated about the balloon that was keeping her catheter in her bladder and she stated that she understood. I asked if she wanted to get up in the chair and she said she would like to get up. This RN and YAIR Ruano got patient up to the chair. She appeared to calm down for a few minutes and then began to cuss at staff and say that the SRNA was doing drugs and was hiding drugs in her bed. Sheets were changed and check for patients piece of mind. This did not help patient's anxiety. She began cussing at me and stating that I don't believe her that she is not doing drugs and wanted me to test her blood. Patient informed and reassured that we know she is not doing opiates and has not received any since her admission. She also told this RN and the SRNA that we ended her marriage and we refused to let her mother see her. The patient was educated that she has not had any visitors but her family has called and they said they would be here this afternoon after running errands. Patient continued to get more agitated despite calming/reassuring measures. WAYNE Jacobsen asked to come to bedside to help and to call the dry house operator and . MD was made aware and stated to give IM haldol, which the patient refused to let us give her to help calm her down. bridges supervisor came to bedside and also tried to reassure patient that were are here to help her and to keep her safe. She became tearful but still agitated. She threw her cup of water and her bottle of water in the floor. bridges supervisor obtained a different sitter for 1:1 observation. Time spent at the bedside was approx. 45 minutes. Patient is currently sitting up in the chair at the bedside with a staff member within arms reach for patient safety.
--- NOTE | 2025-02-25 11:07 | EXP.PULM.PN ---
Subjective *Date: 02/25/25 *Time: 11:18 Interval history: No acute respiratory events overnight. Patient denies any respiratory complaints Pulmonology Exam Inpatient Vital signs and Labs for Last 24 Hours: Temp Pulse Resp BP Pulse Ox O2 Del Method O2 Flow Rate 97.7 F 112 H 23 113/73 99 Room Air 18 02/25/25 08:00 02/25/25 10:00 02/25/25 10:00 02/25/25 10:00 02/25/25 10:00 02/25/25 10:00 02/23/25 07:00 FiO2 21 02/23/25 09:25 Laboratory Results - last 24 hr 02/24/25 14:10: Sodium 140, Potassium 3.6, Chloride 114 H, Carbon Dioxide 20 L, Anion Gap 9.6, BUN 4 L, Creatinine 0.40 L, Estimated Creat Clear 219, Estimated GFR 173, Est GFR ( Amer) 209, Glucose 84, POC Glucose 94, Calcium 8.3 L 02/24/25 20:12: POC Glucose 100 02/25/25 02:02: POC Glucose 94 02/25/25 08:08: POC Glucose 118 H Temp Pulse Resp BP Pulse Ox O2 Del Method O2 Flow Rate 97.1 F L 84 18 111/61 99 Mechanical Ventilation 18 02/23/25 08:58 02/23/25 08:58 02/23/25 08:58 02/23/25 08:58 02/23/25 08:58 02/23/25 08:58 02/23/25 07:00 FiO2 21 02/23/25 08:58 Laboratory Results - last 24 hr 02/22/25 02:19: POC Glucose 105 02/22/25 08:16: POC Glucose 121 H 02/22/25 14:22: POC Glucose 100 02/22/25 19:53: POC Glucose 104 02/23/25 06:30: Specimen Source Right brachial, O2 % 21%, ABG pH 7.41, ABG pCO2 30.6 L, ABG pO2 91.1, ABG HCO3 18.9 L, ABG Total CO2 19.8 L, ABG O2 Saturation 97, ABG Base Excess -5.8 L, Kwame Test Patient unable, Vent Rate 18, Tidal Volume 410, PEEP 5 I & O for Labs for Last 24 Hours: Intake & Output 02/22/25 02/23/25 02/24/25 02/25/25 23:59 23:59 23:59 23:59 Intake Total 6549.652 / 6549.652 1335.386 / 1416.562 7222 / 1482 1000 / 1000 Output Total 1217 / 1217 2625 / 2825 3250 / 3550 2775 / 2775 Balance 5332.652 / 5332.652 -1289.614 / -1489.614 -1768 / -2068 -1775 / -1775 Weight 166 lb 10.711 oz 171 lb 15.369 oz 172 lb 2.896 oz 168 lb 13.985 oz Intake & Output 02/20/25 02/21/25 02/22/25 02/23/25 23:59 23:59 23:59 23:59 Intake Total 2.321 / 2.321 3316.652 / 3316.652 6549.652 / 6549.652 1183.882 / 1183.882 Output Total 75 / 120 478 / 513 1217 / 1217 950 / 950 Balance -72.679 / -866.130 2514.652 / 2803.652 5332.652 / 5332.652 233.882 / 233.882 Weight 151 lb 3.794 oz 169 lb 1.513 oz 166 lb 10.711 oz 171 lb 15.369 oz Microbiology Reports for the Last 24 Hours: Microbiology 02/20/25 17:40 Sputum - Endotracheal Tube Aspirate Gram Stain - Final 02/20/25 17:40 Sputum - Endotracheal Tube Aspirate Sputum Culture - Final Microbiology 02/20/25 17:40 Sputum - Endotracheal Tube Aspirate Gram Stain - Final 02/20/25 17:40 Sputum - Endotracheal Tube Aspirate Sputum Culture - Preliminary 02/20/25 20:31 Anus CRE Surveillance Culture - Final No growth. Constitutional: Present mild distress Head: Present normocephalic and atraumatic Neck: Present normal inspection and trachea midline Respiratory: Present normal respiratory effort, able to speak in complete sentences and symmetric chest movement; Absent prolonged expiratory phase, respiratory distress, rhonchi, wheezes, distant breath sounds or diminished air movement Cardiac: Present S1/S2 and Tachycardia GI: Present soft; Absent distention or tenderness Skin: Present intact; Absent cyanosis Neuro: Present alert, awake and oriented x 3 Extremities: Present normal inspection; Absent clubbing or cyanosis Psychiatric: Present normal affect Assessment and Plan *Assessment and plan (1) Dyspnea on exertion: Status: Acute Category: Medical Code(s): R06.09 - Other forms of dyspnea Plan Ms. Puente is a 44-year-old female presented to the ER after intentional drug overdose intubated for airway support and pulmonary was called for further evaluation and management. Pulmonary has been managing her ventilator over the weekend. CXR-ray clear with no infiltrates. Blood gas did not show any evidence of hypoxic/hypercarbic respiratory failure. Tracheal aspirate cultures no organisms so far. Afebrile. Hemodynamically stable. Slight worsening leukocytosis this morning. Will closely monitor Afebrile. Hemodynamically stable. Initially noted to have hypokalemia, repleted. Potassium this morning 4. Will discontinue potassium supplementation. Patient underwent spontaneous breathing trial this morning. No significant events. Tolerating well. On minimal ventilator settings. Interval update: Successfully extubated to room air. Tolerating well. No new respiratory complaints. Current smoker and 1/2 pack a day. Plan: Albuterol 4 times daily as needed Smoking cessation Follow-up with speech and swallow evaluation Aspiration precautions Pulmonary will sign off at this point of time. Please call with any further questions or concerns.
--- NOTE | 2025-02-25 12:35 | PC.NURSE ---
Patient's came to the nurses station and asked why the patient had bruises on her legs. Patient did not have any bruising on her thighs and legs on my morning assessment. Patient is on her period and does not have panties on due to her pulling at previous amaro and having blood in amaro bag. chux and pads have been provided to keep patient clean. This RN and SRNA asked patient multiple times this AM and the patient refused. The patient was agreeable to allowing WAYNE Jacobsen to clean the blood off of her legs. In report from the night nurse last night she also refused bathing and all personal hygiene care. logging supervisor made aware and is coming to the bedside.
--- NOTE | 2025-02-25 13:39 | PC.NURSE ---
Patient tolerated amaro removal well. 200mls was emptied at time of removal. Patient provided panties and has pads at bedside. Educated that if she needs more panties/pads to left staff know so that we can take them in. Sitter remains at bedside.
--- NOTE | 2025-02-25 13:46 | HMH.SLDYSPHA ---
Speech & Language Evaluation Speech/Language Dysphagia Evaluation Start: 02/25/25 13:36 Freq: ONCE Status: Active Protocol: Document 02/25/25 13:36 ANALI (Rec: 02/25/25 13:46 [facility] [id number]) Dysphagia Assess/Goals/Plan Assessment Date of Evaluation: 02/25/25 Evaluation Type Initial Certification Assessment/Problems s/p extubation per MD order Does Patient Qualify No for Service Qualify/Failure Based on clinical observations made throughout bedside Comment clinical swallow evaluation, further skilled speech therapy services are not warranted at this time. No overt s/sx of aspiration were observed on any consistency trialed, and mastication and manipulation of bolus were observed to be WFL. Recommendations PHYSICIAN CERTIFICATION: The specified therapy services are required, authorized, and reviewed every 30 days. Diet Recommendations Normal Liquid Type Normal/Thin Recommendations SL Swallow Alt bite w/sip thru meal,Standard Aspiration Prec.,Eat Guidelines at slow rate Dysphagia Swallow Sitting Upright (90 deg),Small Bites and Sips,Alternate Precautions/ Liquids/Solids Strategies Plan Pt/Guardian verbally Yes ack understanding of dx/prognosis/ goals G -code Required No Education Instructions [place] MACHINE OPERATOR discussed clinical observations made during bedside provided CSE< diet recommendations, and compensatory strategies with pt and , nursing, and [facility], all of which expressed understanding. Pt/Caregiver able to Able to recall/restate recall information Reinforcement needed No Speech & Language HPI History Present Illness Description of [place] MACHINE OPERATOR pulled the following from pt' chart: Patient Problem H&P- Ms. Puente is a 44 year old patient of [facility] who was brought to [facility] ER yesterday for altered mental status after an intentional drug overdose. Her significant other states she had indicated she wanted to and then took a mixture of medications, including Lyrica, Lexapro and Flexeril. It is unclear if she took any other medications. Patient had been seen in the office a few times over the last month due to worsening depression. An atypical antipsychotic medication was prescribed but her insurance company refused to pay for the medication . The prior authorization stated that no atypical antipsychotics would be covered for adjunctive therapy for depression treatment. Chest x-ray- FINDINGS: Tubes, catheters and devices: ET tube is 4.3 cm above the ju. NG tube in the stomach. Lungs: No focal infiltrates. Pleural spaces: Unremarkable. No pleural effusion. No pneumothorax. Heart/Mediastinum: Unremarkable. No cardiomegaly. Bones/joints: Unremarkable. Rehab Services Speech therapy Assessed Is this evaluation r No /t stroke? Language Primary Language Nigerian Ute Lang/Spoken Nigerian in Home General Information General Current Food Regular,Thin Liquids Consistancy Dentition Good Dentition Oxygen Status Room Air Facial Symmetry Symmetrical Patient Orientation Person,Place,Time,Situation Ability to Follow Excellent Directions Communication No Impairment Ability Dysphagia:Food Presentation Evaluation Food Type Pureed,Mechanical Soft,Regular,Liquid,Pudding Dysphagia Evaluation A clinical bedside swallow evaluation was administered Summary this afternoon with pt sitting upright in chair, on room air, and with adequate dentition. Pt was able to follow commands on this date, and showed no signs of aggression. [place] MACHINE OPERATOR presented thin liquid (water) via cup and straw, pudding, puree (applesauce), mechanical soft (Nutrigrain bar), and regular (sonia cracker). [place] MACHINE OPERATOR administered all bolus' x2 to assess for fatigue and consistency. No overt s/sx of aspiration were observed on any consistency trialed. No oral residue was observed on any consistency trialed. Pt demonstrated WFL mastication and manipulation of bolus on mechanical soft and regular trials, as well as adequate labial seal. [place] MACHINE OPERATOR recommends thin liquid/regular diet w/ aspiration precautions including sitting upright, small bites/sips, alt bites/sips, and slow rate. Stroke Dysphagia Assessment PHYSICIAN CERTIFICATION: I certify the specified therapy services for Vivek Puente are required, authorized, and reviewed every 30 days.
--- NOTE | 2025-02-25 16:20 | PC.NURSE ---
Patient came to the door and told this RN that one of these girls are throwing stuff and has gotten hateful with this RN again this afternoon and would not even let me ask her what she meant or what happened. and mother are at bedside. No one has said anything to patient and nothing has been thrown by staff or patient.
--- NOTE | 2025-02-25 18:40 | PC.NURSE ---
Pt has been more calm this afternoon than this morning. Attempted to cluster care to the best of my ability to reduce agitation. Therapeutic communication techniques do not seem to de-escalate her when she starts to get agitated. is at bedside and does seem to help her calm down. However, has been very passive aggressive with staff since he arrived this afternoon. manager lan and patient satisfaction are aware of the patient and the 's behavior today. Pt has not voided since amaro catheter removal. Pt has gotten up to the bedside commode x3 to attempt to void. Will need to be bladder scanned at 1940 if she has not voided. MD is also aware of behaviors today.
--- NOTE | 2025-02-25 19:33 | PC.NURSE ---
Patient to go to floor at 830 pm to room 204 per warehouse man
--- NOTE | 2025-02-25 19:47 | PC.NURSE ---
Patient refuses bladder scan. States she don't trust it since she heard people whispering at the nurses station.
--- NOTE | 2025-02-25 20:55 | PC.NURSE ---
Called SRNA report on patient to Coleen SRNA @20:55
--- NOTE | 2025-02-25 20:55 | PC.NURSE ---
Report given to WAYNE May on med/surg
--- NOTE | 2025-02-25 20:56 | PC.NURSE ---
Patient discharged off ICU unit to Med Surg floor via wheelchair by Laine SRNA @2100
--- NOTE | 2025-02-25 20:59 | PC.NURSE ---
Patient refuses to leave room. Notified provider.
--- NOTE | 2025-02-25 21:08 | PC.NURSE ---
Patient refuses to leave room; notified house fellow
--- NOTE | 2025-02-25 21:13 | PC.NURSE ---
Patient discharged off ICU unit to [facility] @21:14
--- NOTE | 2025-02-25 21:56 | PC.NURSE ---
Patient arrived to floor via wheelchair from ICU at 21:16
--- NOTE | 2025-02-25 23:00 | PC.NURSE ---
Addendum entered by Yadira Nathan RN 02/25/25 23:57: At this time, the patient got up out of bed ad waqas. Bed alarm was answered to promptly by me and Nettie MAZARIEGOS (1:1 observation sitter). Patient was redirected by Nettie MAZARIEGOS and was asked if she needed to urinate; patient stated, yes, I think I do. She ambulated with standby assistance to the bathroom; steady gait was noted, no difficulties with ambulation. Patient urinated 600 mL of hitesh colored urine. Praise was given to the patient by nursing staff. Original Note: Since the patient's arrival to the second floor (21:16), the patient has not voided. She was encouraged a couple times (between 21:30 and 22:30 + after her shower) to attempt to void, but she stated that she does not feel any reflexes to do so. When lying in bed to rest, she has not reported having any urges to urinate as well. Very mild bladder distention was noted upon inspection/palpation. Patient denied any bladder discomfort. She is menstruating. Using a calm approach, I asked the patient if I could bladder scan her, for she previously refused while in the ICU. Patient allowed me to do so and verbalized an understanding of the procedure. She was bladder scanned at 22:45; approximately 427 mL of urine was observed in her bladder via the scan. Patient tolerated the procedure very well. Varsha Garcia MD was paged at 22:55 to inform him about this. He stated to allow more time to see if the patient will urinate at some point tonight; he advised that if she still has not voided and still does not have any urges to urinate by 02:00, then she can be straight-cathed (verbal order obtained). Currently, the patient is resting in bed at this time. She does not vocalize having any complaints. Sensory stimuli reduced. One-on-one observation ongoing.
--- NOTE | 2025-02-26 02:44 | PC.NURSE ---
Addendum entered by Yadira Nathan RN 02/26/25 05:13: Patient is now currently sitting upright in bed. No violent behavior expressed. Sensory stimuli reduced, comfort provided by nursing staff. One-on-one observation ongoing. Addendum entered by Yadira Nathan RN 02/26/25 04:33: Patient is currently resting in bed with eyes closed, respirations are even and unlabored, and she is in no apparent distress. Addendum entered by Yadira Nathan RN 02/26/25 04:01: At around 03:24, the patient was becoming agitated, anxious, and very tearful. I entered the patient's room quickly to check on her with Madi MAZARIEGOS. Illusions of voices were expressed (patient heard other staff members outside of her room talking and misinterpreted their voices for her family members). Delusions also presented (patient verbalized a belief that her hospitalization is a punishment from her ). A standing order of haloperidol was available in the [facility]; this was administered at 03:55, right deltoid intramuscular site. Patient allowed nursing staff to administer the medication. Calming techniques and reassurance were provided by nursing staff before/during/after giving the intramuscular injection. At this time, the patient is resting supine in bed, exhibiting calm behavior once more. Bed alarm on. Call light within reach. One-on-one observation ongoing. She has remained awake for the majority of this shift. Original Note: At around 02:30, the patient became ill-tempered with nursing staff and stated that she needed to go home to her . Patient orientation x2 to x3. Suspicious behavior expressed, vulgar language used. She has had multiple, sporadic delusions of seeing her and hallucinations of hearing her sporadically throughout the shift. Patient walked out into the hallway, nursing staff addressed the situation immediately using redirection and reasoning. She was offered to make laps around the hallway. Patient stated that she did want to stretch her legs and walked with me and Madi MAZARIEGOS (1:1 observation sitter) around the hallway. After two laps, the patient returned to her room at her own leisure. She was assisted into bed, provided a warm blanket, and offered to find a favorite TV channel. Redirection successful, agitation reduced. At this time, the patient is resting upright in bed watching TV; calm behavior exhibited. Bed alarm on. One-on-one observation ongoing.
[2025-02-26] MEDS: HALOPERIDOL LACTATE 5 MG/ML VIAL 4 MG IM (03:55)
[2025-02-26 04:00] VITALS: BP 138/85; PULSE 96; RESP 18; O2SAT 100; BMI 25.3
--- NOTE | 2025-02-26 07:16 | PC.NURSE ---
Synthroid dose of 88 mcg unable to be given to the patient due to unavailability after hours.
--- NOTE | 2025-02-26 08:16 | P.PN_ITS ---
Subjective *Date: 02/26/25 *Time: 08:58 Interval history: Patient is in the hallway today refusing to go back into her room. She is having hallucinations and is delusional and thinks her son is locked in a room. She denies any pain. Nursing states she had haldol at 4am and this did seem to calm her down. Medical Exam Vital signs and Labs for Last 24 Hours: Vital Signs Temp Pulse Pulse Resp BP BP Pulse Ox 02/26/25 06:35 02/26/25 05:00 02/26/25 04:00 96 H 18 138/85 100 02/26/25 03:00 02/26/25 01:00 02/25/25 23:00 02/25/25 21:25 02/25/25 20:55 02/25/25 20:00 98.2 F 115 H 17 133/80 98 02/25/25 20:00 112 H 02/25/25 19:20 98 02/25/25 18:40 02/25/25 17:00 107 H 16 115/95 H 91 L 02/25/25 17:00 02/25/25 16:14 98.0 F 02/25/25 16:00 115 H 14 117/82 98 02/25/25 16:00 02/25/25 16:00 110 H 02/25/25 15:00 116 H 19 125/73 99 02/25/25 15:00 02/25/25 14:00 116 H 24 119/72 98 02/25/25 13:36 02/25/25 13:00 118 H 16 123/78 98 02/25/25 13:00 02/25/25 12:00 02/25/25 12:00 98.2 F 104 H 14 116/83 96 02/25/25 12:00 110 H 02/25/25 11:00 02/25/25 11:00 105 H 17 96 02/25/25 10:00 112 H 23 113/73 99 02/25/25 09:00 99 H 21 130/80 98 02/25/25 09:00 O2 Del Method 02/26/25 06:35 Room Air 02/26/25 05:00 Room Air 02/26/25 04:00 Room Air 02/26/25 03:00 Room Air 02/26/25 01:00 Room Air 02/25/25 23:00 Room Air 02/25/25 21:25 Room Air 02/25/25 20:55 Room Air 02/25/25 20:00 Room Air 02/25/25 20:00 02/25/25 19:20 Room Air 02/25/25 18:40 Room Air 02/25/25 17:00 Room Air 02/25/25 17:00 Room Air 02/25/25 16:14 02/25/25 16:00 02/25/25 16:00 Room Air 02/25/25 16:00 02/25/25 15:00 Room Air 02/25/25 15:00 Room Air 02/25/25 14:00 Room Air 02/25/25 13:36 Room Air 02/25/25 13:00 Room Air 02/25/25 13:00 Room Air 02/25/25 12:00 Room Air 02/25/25 12:00 Room Air 02/25/25 12:00 02/25/25 11:00 Room Air 02/25/25 11:00 Room Air 02/25/25 10:00 Room Air 02/25/25 09:00 Room Air 02/25/25 09:00 Room Air Intake and Output 02/25/25 02/26/25 02/26/25 19:59 03:59 11:59 Intake Total 270.667 / 320.667 50 / 320.667 Output Total 1200 / 1810 610 / 1810 Balance -929.333 / -1489.333 -560 / -1489.333 Intake: Intake, Oral Amount 270 / 320 50 / 320 Intake, Total IV Amount 0.667 / 0.667 Dextrose 5 % in Water 1,000 ml 0.667 / 0.667 @ 125 mls/hr IV .Q8H [facility] Rx#: [id number] Output: Output, Urine Amount 610 / 610 Output, Urine Amount (Catheter) 1200 / 1200 Dodd 1200 / 1200 Other: Number of Unmeasured Voids 0 Weight 167 lb 6.4 oz Patient Weight 02/26/25 11:59 Weight 167 lb 6.4 oz Laboratory Results - last 24 hr 02/25/25 08:08: POC Glucose 118 H I & O for Labs for Last 24 Hours: Intake & Output 02/23/25 02/24/25 02/25/25 02/26/25 11:59 11:59 11:59 11:59 Intake Total 4243.667 / 4243.667 400 / 440 2665.333 / 2665.333 320.667 / 320.667 Output Total 2278 / 2278 2400 / 2400 4825 / 4825 1810 / 1810 Balance 1965.667 / 1965.667 -2000 / -1960 -2159.667 / -2159.667 -1489.333 / - 1489.333 Weight 171 lb 15.369 oz 172 lb 2.896 oz 168 lb 13.985 oz 167 lb 6.4 oz Constitutional: Present mild distress (paranoid) Assessment and Plan *Assessment and plan (1) Respiratory failure: Status: Acute Category: Medical Code(s): J96.90 - Respiratory failure, unspecified, unspecified whether with hypoxia or hypercapnia (2) Suicide attempt by multiple drug overdose: Status: Acute Qualifiers: Encounter type: initial encounter Qualified Code(s): T50.912A - Poisoning by multiple unspecified drugs, medicaments and biological substances, intentional self-harm, initial encounter Category: Medical Code(s): T50.912A - Poisoning by multiple unspecified drugs, medicaments and biological substances, intentional self-harm, initial encounter (3) Marijuana abuse: Status: Acute Category: Medical Code(s): F12.10 - Cannabis abuse, uncomplicated (4) Amphetamine abuse: Status: Acute Category: Medical Code(s): F15.10 - Other stimulant abuse, uncomplicated (5) Hypokalemia: Status: Acute Category: Medical Code(s): E87.6 - Hypokalemia (6) Depressive disorder: Status: Acute Category: Medical Code(s): F32.A - Depression, unspecified (7) Combative behavior: Status: Acute Category: Medical Code(s): R46.89 - Other symptoms and signs involving appearance and behavior Plan Patient was able to urinate and is stable to be transferred to a psychiatric facility. Care management is working on disposition. Dr. Garcia entry - Saw patient in hallway this morning. Agree with above note. She has tried to escape the facility and is refusing to return to her room. She was able to void spontaneously overnight so she is now medically cleared for discharge to a psych facility.
--- NOTE | 2025-02-26 10:06 | PC.NURSE ---
Addendum entered by Adelina Moreira RN 02/26/25 12:07: Patient agreeable to talk to [place] on ipad and then agreeable to sit in patient's room. Patient cooperative and alert but still confused to situation and hallucinating. Patient accepted to [facility] and willing to go. Patient transported by police. Patient's mother Patt called and notified of patient transfer. Addendum entered by Adelina Moreira RN 02/26/25 10:10: Incident happened at 0749 Original Note: Patient walking the floor and attempted to leave the floor ama. supervisor shaving and splitting notified and paged. Patient stated her son was here and we were keeping him from taking her. Explained to patient her son was not on the floor. Patient stated she was still leaving ama. Security called. Patient refusing to go back to room. Dispatch called.
--- NOTE | 2025-02-27 17:57 | EXP.DC.SUM ---
General Admission date:: 02/20/25 Discharge date: 02/26/25 HPI HPI HPI: Ms. Puente is a 44 year old patient of [facility] who was brought to [facility] ER yesterday for altered mental status after an intentional drug overdose. Her significant other states she had indicated she wanted to and then took a mixture of medications, including Lyrica, Lexapro and Flexeril. It is unclear if she took any other medications. Patient had been seen in the office a few times over the last month due to worsening depression. An atypical antipsychotic medication was prescribed but her insurance company refused to pay for the medication. The prior authorization stated that no atypical antipsychotics would be covered for adjunctive therapy for depression treatment. Hospital Course Hospital Course Hospital Course: The patient was admitted and intubated to protect her airway. Pulmonology followed the patient. Her urine output did improve but she was very restless and restraints had to be applied briefly and her propofol dose had to be increased. Her sedation was decreased on 02/23/2025 for spontaneous breathing trial. The patient was extubated on 02/23/2025 and was placed on one-on-one protocol for suicide watch. Behavioral health was consulted and they felt the patient needed a 72-hour hold with transfer to an inpatient treatment facility for evaluation and management. After extubation, the patient became combative with the staff and got out of bed multiple times and tried to leave her room. She was treated with IV lorazepam with little improvement in her symptoms and was initially placed in soft restraints for her safety. She was given 5 mg of IM Haldol which did seem to help calm her down. She had to remain in soft restraints and continue to receive Haldol every 4 hours as needed. She was unable to void and a Dodd catheter was reinserted. By 02/24/2025 her mental status improved slightly and she had no recollection of the previous days. She did complain of a sore throat but could not recall why she had been hospitalized. She was started on clear liquids and her home medications were resumed. Bladder training was started and her diet was advanced. By 02/26/2025 the patient was in the hallway hallucinating and refusing to return to her room. She tried to escape the facility. She had been given Haldol which seemed to calm her down during the night but the nursing staff was unable to give her more Haldol in the hallway. They were finally able to get her back to her room. Her Dodd was removed and she was able to urinate. She was medically cleared for discharge to a psychiatric facility and care management was able to get her transferred to [facility]. The patient was transported by [employer]. Exam Data for Last 24 hours Vital signs and Labs for Last 24 Hours: Temp Pulse Resp BP Pulse Ox O2 Del Method O2 Flow Rate 98.2 F 96 H 18 138/85 100 Room Air 02/25/25 20:00 02/26/25 04:00 02/26/25 04:00 02/26/25 04:00 02/26/25 04:00 02/26/25 11:00 02/23/25 07:00 FiO2 02/23/25 09:25 I & O for Last 24 hours: Intake & Output 02/25/25 02/26/25 02/27/25 02/28/25 11:59 11:59 11:59 11:59 Intake Total 2665.333 / 2665.333 320.667 / 320.667 Output Total 4825 / 4825 1810 / 1810 Balance -2159.667 / -2159.667 -1489.333 / -1489.333 Weight 168 lb 13.985 oz 167 lb 6.4 oz Narrative: Constitutional Comments: intubated, sedated *Routine HEENT Exam Head: Present normocephalic Eye: Present EOMI and PERRL ENT: Present mucous membranes moist *Routine Neck Exam Neck: Present supple; Absent lymphadenopathy *Routine Respiratory Exam Respiratory: Present CTA bilaterally *Routine Cardiovascular Exam Cardiovascular: Present RRR *Routine Abdominal Exam Abdominal: Present soft and normoactive bowel sounds; Absent tenderness *Routine Rectal Exam Rectal:: deferred *Routine Genitalia Exam Genitalia:: deferred *Routine Extremities Exam Extremities: Absent cyanosis, clubbing or edema *Routine Skin Exam Skin: Present warm; Absent rash *Routine Neurological Exam Comments: intubated, sedated DS: Diagnosis Discharge Diagnosis (1) Respiratory failure: Status: Acute Code(s): J96.90 - Respiratory failure, unspecified, unspecified whether with hypoxia or hypercapnia (2) Suicide attempt by multiple drug overdose: Status: Acute Code(s): T50.912A - Poisoning by multiple unspecified drugs, medicaments and biological substances, intentional self-harm, initial encounter Qualifiers: Encounter type: initial encounter Qualified Code(s): T50.912A - Poisoning by multiple unspecified drugs, medicaments and biological substances, intentional self-harm, initial encounter (3) Marijuana abuse: Status: Acute Code(s): F12.10 - Cannabis abuse, uncomplicated (4) Amphetamine abuse: Status: Acute Code(s): F15.10 - Other stimulant abuse, uncomplicated (5) Hypokalemia: Status: Acute Code(s): E87.6 - Hypokalemia (6) Depressive disorder: Status: Acute Code(s): F32.A - Depression, unspecified (7) Combative behavior: Status: Acute Code(s): R46.89 - Other symptoms and signs involving appearance and behavior Meds Home Medications and Allergies Home Medications ?Medication ?Instructions ?Recorded ?Confirmed ?Type levothyroxine 88 mcg tablet 88 mcg PO DAILYDM 02/21/25 02/21/25 History New Prescriptions to Start Prescriptions: Allergies Allergy/AdvReac Type Severity Reaction Status Date / Time amoxicillin Allergy Severe Anaphylaxis Verified 10/14/18 12:40 azithromycin Allergy Severe Anaphylaxis Verified 10/14/18 12:40 Penicillins Allergy Severe Anaphylaxis Verified 10/14/18 12:40 Discharge Plan Disposition Patient Disposition: Xfer Psychiatric Hosp Condition: Other Discharge Order Discharge Orders: Discharge Order (Routine); Ordered 02/26/25 Ordered By: Anatoly Garcia Follow up Plan Prescriptions/Medication Reconciliation: Continued levothyroxine 88 mcg tablet 88 mcg PO DAILYDM Patient Comments: TAKE 1 TABLET BY MOUTH ONCE DAILY Discontinued famotidine 20 mg tablet 20 mg PO BID quetiapine 50 mg Tablet 50 mg PO HS cyclobenzaprine [Flexeril] 10 mg Tablet 10 mg PO TIDP PRN (Reason: Muscle Spasm) pregabalin 200 mg Capsule 200 mg PO BID hydroxyzine HCl 25 mg tablet 25 mg PO QIDP PRN (Reason: Anxiety) Patient Comments: TAKE 1 TABLET BY MOUTH 4 TIMES DAILY NEEDED escitalopram oxalate 10 mg tablet 10 mg PO DAILY Patient Comments: TAKE 1 TABLET BY MOUTH ONCE DAILY Problem Reconciliation Problems Reviewed?: Yes Patient Discharge Instructions ACTIVITY: Continue current activity DIET: continue same diet Patient Instructions: DI for Drug Overdose in Adults, DI for Respiratory Failure Print Language: Danish Providers Primary Care Provider: Anatoly Garcia Admit Provider: Anatoly Garcia Attending Provider: Anatoly Garcia
== END 2025-02-26 12:01 | DRG 918 ==
LOC: ER 18:03 → ICU 19:44 → 2ND 02-25 20:30
PROVIDERS: Internal Medicine Pulmonary Disease; Nurse Practitioner Family; Admitting Provider Family Medicine; Emergency Provider Student in an Organized Health Care Education/Training Program; PCP Family Medicine; Visit Provider Family Medicine
DX: T43.592A Poisoning by other antipsychotics and neuroleptics, intentional self-harm, initial encounter (principal); F15.10 Other stimulant abuse, uncomplicated; F12.10 Cannabis abuse, uncomplicated; F32.A Depression, unspecified; E03.9 Hypothyroidism, unspecified; T48.1X2A Poisoning by skeletal muscle relaxants [neuromuscular blocking agents], intentional self-harm, initial encounter; E87.6 Hypokalemia; F17.210 Nicotine dependence, cigarettes, uncomplicated; R41.82 Altered mental status, unspecified; F22 Delusional disorders; R45.6 Violent behavior; Z79.890 Hormone replacement therapy; Z79.899 Other long term (current) drug therapy; Z88.0 Allergy status to penicillin; Z88.1 Allergy status to other antibiotic agents; Z78.1 Physical restraint status
CPT/HCPCS: 36415; 51702; 70450; 71045; 74018; 80048; 80053; 80307; 80320; 80329; 81001; 82550; 82803; 82962; 83735; 84703; 85025; 86803; 87070; 87081; 87205; 87389; 92610; 93005; 94003; J0330; J1630; J1650; J2003; J2060; J2704; J3480; J7030; J7070

== ENCOUNTER 2025-03-06 12:10 | Outpatient (CLI) | payer OTHER, SELFPAY ==
--- OUTSIDE RECORDS SUMMARY | 2025-01-28 06:30 | XMS_ITS ---
Author Organization [facility] Address [address] [facility] [address] [place] [id number] Care Team Providers Care Lawyer Name Role Phone Gaviota Frazier Unavailable [phone] Allergies Allergen (clinical drug ingredient) Drug/Non Drug [...] Notes Problem Mixed anxiety and depressive disorder (513715407) Depression with anxiety (F41.8) Active confirmed Problem Panic attacks (F41.0) Active confirmed Vital Signs Weight 164 lbs 01/28/2025 Blood pressure systolic 140 mm Hg 01/29/20 25 Blood pressure diastolic 80 mm Hg 025 Heart Rate 110 /min 01/28/2025 Height 65 in 01/28/2025 BMI 27.29 kg/m2 01/28/2025 Encounters Encounter Location Date Provider Diagnosis BRYAN-Shahnaz [address] [facility] [address] [facility] [address] [place] [id number] 01/28/2025 Gaviota Alonsorakan Depression with anxi ety F41.8 and Panic [...] Follow Up: 2 Weeks, Reason: Provider Name:Anatoly Alex weir, 03/06/2025 11:30:00 AM, [address] [facility] [address] [facility], [address], [place], [id number], Provider Name:Anatoly Alex weir, 04/17/2025 11:30:00 AM, [address] [facility] [address] [facility], [address], [place], [phone], Progress Notes * DEMETRIA MEZADOB:1980 ( 44 yo F)Acc No.[id number]:01/28/2025 Progress Notes Patient: VICKY ESCALONACI Provider: SILVANO Anderson :1980 A ge:44 Y S ex:Female Date:01/28/2025 Address:[address] [place] [address], [place], [id number] Subjective: * Chief Complaints: * 1 . [...] * Images: Billing Information: * Visit Code: 57626 Office Visit, Est Pt., Level 3. * Procedure Codes: * Electronic signature of SILVANO Beltran on 03/06/2025 at 12:13 PM EDT Sign off status: Pending * Provider: SILVANO Anderson Date: 0 01/28/2025 Generated for Jackelin neal/Rita/Alek on: 0 03/06/2025 12:13 PM EDT History and Physical Notes * [...]
--- OUTSIDE RECORDS SUMMARY | 2025-02-10 06:49 | XMS_ITS ---
Author Organization [facility] Address [address] [facility] [address] [place] [phone] Care Team Providers Care Master Pilot Name Role Phone Gaviota Frazier Unavailable [phone] REASON FOR VISIT due jaylan,col Encounters Encounter Location Date Provider Diagnosis [facility] [address] [place] [id number] 02/10/2025 Gaviota Frazier Encounter for screen ing [...] Mammogram 02/10/2025 Next Appt Details Provider Name:Anatoly weir, 03/06/2025 11:30:00 AM, [address] [place], [address], [place], [phone], Provider Name:Anatoly weir, 04/17/2025 11:30:00 AM, [address] [place], [address], [place], [phone], Progress Notes * DEMETRIA PUENTEDOB:1980 ( 44 yo F)Acc No.[id number]:02/10/2025 Patient: Bc IRBYDEMETRIA JACOME :1980 A ge:44 Y S ex:Female Address:[facility] [address], [place], [address] Subjective: * Chief Complaints: * D ue jaylan,col * Medical History: * Surgical History: * Hospitalization/Major Diagno stic Procedure: * Medications: Objective: * Vitals: * Physical Examination: Assessment: * Assessment: 1. E ncounter for screening for malignant neoplasm of breast - Z12.31 (Primary) ?2. C olon cancer screening - Z12.11 Plan: * Treatment: 2.?Colon cancer screening?Imaging: colonoscopy* Scarlett Russell 02/17/2025 01:3 0:43 PM EDT >sent to Jennifer for referral to [facility] * Procedure Codes: * true * Date: Generated for Jackelin neal/Rita/Adrienneitting on: 0 03/06/2025 12:13 PM EDT
--- OUTSIDE RECORDS SUMMARY | 2025-02-11 06:45 | XMS_ITS ---
Author Organization [facility] Address [address] [facility] [address] [place] [id number] Care Team Providers Care Information Technology Analyst Name Role Phone Gaviota Frazier Unavailable [phone] Anatoly Garcia Unavailable [phone] Allergies Allergen (clinical drug ingredient) Drug/Non Drug Allergy documented on EMR Reaction Allergy Type Onset Date Status amoxicillin Amoxicillin anaphylaxis Drug Allergy A ctive erythromycin Erythromycin anaphylaxis Drug Allergy Active Penicillin anaphylaxis Drug Allergy Acti ve REASON FOR VISIT 2 week f/u Medications Medication SIG (Take, Route, Frequency, Duration) Notes Start Date End Date Status Escitalopram Oxalate 10 MG 1 tablet Oral ly Once a day; Duration: 30 days 02/11/2025 Active hydrOXYzine HCl 25 MG 1 tab Orally 4 fuad es a day, prn 01/28/2025 Active QUEtiapine Fumarate 50 MG 1 tablet at be dtime Orally Once a day; Duration: 30 days 02/02/2025 Active Euthyrox 88 MCG 1 tab(s) orally once a day; Duration: 30 days Active Famotidine 20 MG 1 tab(s) orally 2 ti mes a day Active Cyclobenzaprine HCl 10 MG 1 tablet orall y 3 times a day prn; Duration: 30 days Active Ibuprofen 800 MG take 1 tablet orally once a day; Duration: 90 days Active Pregabalin 200 MG 1 capsule Orally Two times a day; Duration: 30 days 11/25/2024 Active Problems Problem Type SNOMED Code ICD Code Onset Dates Problem Status W/U Status Risk Notes Problem Unspecified mood [affective] disorder (F39) Active confirmed Vital Signs Weight 162 lbs 02/11/2025 Blood pressure systolic 130 mm Hg 02/12/20 25 Blood pressure diastolic 78 mm Hg 025 Heart Rate 108 /min 02/11/2025 Height 65 in 02/11/2025 BMI 26.96 kg/m2 02/11/2025 Encounters Encounter Location Date Provider Diagnosis [place] [address] [place] [phone] 02/11/2025 Anatoly Garcia Unspecified mood [affective] disorder F39 ; Hypothyroidism (acquired) E03.9 and BMI 26.0-26.9,adult Z68.26 Assessments Encounter Date Diagnosis (ICD Code) Assessment Notes Treatment Notes Treatment Clinical Notes Section Notes 02/11/2025 Unspecified mood [affective] disorder (ICD-10 - F39) 02/11/2025 Hypothyroidism (acquired) (ICD-10 - E03.9) 02/11/2025 BMI 26.0-26.9,adult (ICD-10 - Z68.26) Plan Of Treatment Medication Medication Name Sig Start Date Stop Date Notes Escitalopram Oxalate 10 MG 1 tablet Oral ly Once a day; Duration: 30 days 02/11/2025 Escitalopram Oxalate 5 MG 1 tablet Orally Once a day 01/28 hydrOXYzine HCl 25 MG 1 tab Orally 4 times a day, prn 01/07 QUEtiapine Fumarate 50 MG 1 tablet at be dtime Orally Once a day; Duration: 30 days 02/02/2025 Euthyrox 88 MCG 1 tab(s) orally once a day; Duration: 30 days Next Appt Details Follow Up: 2 Weeks, Reason: Provider Name:Anatoly weir, 03/06/2025 11:30:00 AM, [address] [place] [address], [facility] [address], [place], [phone], Provider Name:Anatoly weir, 04/17/2025 11:30:00 AM, [address] [place] [address], [facility] [address], [place], [phone], Progress Notes * NADIA MEZA:1980 ( 44 yo F)Acc No.[id number]:02/11/2025 Patient: Bc DEMETRIA HOANG Provider: Varsha Garcia M.D. DOB:1980 A ge:44 Y S ex:Female Date:02/11/2025 Address:[address] [place] [address] [place], [place], [id number] Subjective: * Chief Complaints: * 1 . 2 week f/u. * HPI: P sychology: 44 year old female presents with c/o depression P t here for 2 week f/u on depression with anxiety. Pt started on Escitalopram 5mg and Hydroxyzine 25mg 01/28. Pt states that she does feel better in some ways and feels worse in other ways . * ROS: D ERMATOLOGY: no R kam. n o H jeffrey. G ASTROENTEROLOGY: no N ausea. n o H eartburn. U ROLOGY: no D ifficulty urinating. n o B lood in urine. * Medical History: R T Cervical Radiculopathy, Hypothyroidism, GERD. * Surgical History: C holecystectomy 1999, Ectopic 2002, Ectoptic 2006, Tubal Ligation 2006, LT Lobe Thyroidectomy 03/2018. * Hospitalization/Major Diagno stic Procedure: D enies Past Hospitalization. * Family History: F ather: alive, diagnosed [...] orally 3 times a day prn , Taking QUEtiapine Fumarate 50 MG Tablet 1 tablet at bedtime Orally Once a day , Taking hydrOXYzine HCl 25 MG Tablet 1 tab Orally 4 times a day, prn , Not-Taking Escitalopram Oxalate 5 MG Tablet 1 tablet Orally Once a day , Medication List reviewed and reconciled with the patient * Allergies: P enicillin: anaphylaxis, Amoxicillin: anaphylaxis, Erythromycin: anaphylaxis. Objective: * Vitals: W t: 162, Temp: 97.7, BP: 130/78, HR: 108, Nurse: branden, Ht: 65, BMI:26.96. * Examination: P sychology: General Appearance: N AD. G rooming : a dequate.?Eye contact : n ormal. M ood : t earful, mood is worse today. Assessment: * Assessment: 1. U nspecified mood [affective] disorder - F39 (Primary) 2 . H ypothyroidism (acquired) - E03.9 3 . B MN 26.0-26.9,adult - Z68.26 Plan: * Treatment: 2. H ypothyroidism (acquired) Refill Euthyrox Tablet, 88 MCG, 1 tab(s), orally, once a day, 30 days, 30, Refills 5. * Procedure Codes: 3 075F SYST BP GE 130 - 139MM HG, 3078F DIAST BP < 80 MM HG * Follow Up: 2 Weeks * Images: Billing Information: * Visit Code: 26488 Office Visit, Est Pt., Level 3. * Procedure Codes: 3075F SYST BP GE 130 - 139MM HG. 3078F DIAST BP < 80 MM HG. * Electronic signature of Nalini Garcia MD on 03/06/2025 at 12:13 PM EDT Sign off status: Pending * Provider: Varsha Garcia M.D. Date: 02/11/2025 Generated for Jackelin neal/Rita/Lexiesmitting on: 03/06/2025 12:13 PM EDT History and Physical Notes * HPI (History of Present Illness) Category Sub-Category Detail Notes Category Not es Psychology depression Pt here for 2 we ek f/u on depression with anxiety. Pt started on Escitalopram 5mg and Hydroxyzine 25mg 01/28. Pt states that she does feel better in some ways and feels worse in other ways Examination Category Sub-Category Detail Notes Category Not es Psychology General Appearance: NAD Grooming : adequate Eye contact : normal Mood : tearful, mood is wor se today
--- OUTSIDE RECORDS SUMMARY | 2025-02-25 06:15 | XMS_ITS ---
Author Organization [facility] Address [address] [facility] [address] [place] [id number] Care Team Providers Care Process Development Associate Name Role Phone Gaviota Frazier Unavailable [phone] Anatoly Garcia Unavailable [phone] Allergies Allergen (clinical drug ingredient) Drug/Non Drug Allergy documented on EMR Reaction Allergy Type Onset Date Status amoxicillin Amoxicillin anaphylaxis Drug Allergy A ctive erythromycin Erythromycin anaphylaxis Drug Allergy Active Penicillin anaphylaxis Drug Allergy Acti ve REASON FOR VISIT 2 week f/u Encounters Encounter Location Date Provider Diagnosis [facility] [address] [place] [id number] 02/25/2025 Anatoly Garcia Plan Of Treatment Next Appt Details Provider Name:Anatoly weir, 03/06/2025 11:30:00 AM, [address], [address], [place], [place], [id number], Provider Name:Anatoly weir, 04/17/2025 11:30:00 AM, [address], [address], [place], [place], [id number], Progress Notes * DEMETRIA PUENTEDOB:1980 ( 44 yo F)Acc No.[id number]:02/25/2025 Progress Notes Patient: VICKY ESCALONACI Provider: Varsha Garcia M.D. :1980 A ge:44 Y S ex:Female Date:02/25/2025 Address:[address] [place] [address], [place], [id number] Subjective: * Chief Complaints: * 1 . 2 week f/u. * ROS: D ERMATOLOGY: no R kam. n o H jeffrey. G ASTROENTEROLOGY: no N ausea. n o V omiting. U ROLOGY: no D ifficulty urinating. n [...] . * Social History: C URRENT TOBACCO USE: Yes S moking Status: P atient does smoke, p acks per day:?1, S shira age of: [age], S moking preference: c igarettes. C affeine: yes, frequency:tea, pop. Home smoke detector use: yes. Marital Status: . Alcohol: No. * Allergies: P enicillin: anaphylaxis, Amoxicillin: anaphylaxis, Erythromycin: anaphylaxis. Objective: * Vitals: Assessment: Plan: * Treatment: * Images: Billing Information: * Visit Code: * Procedure Codes: * Electronic signature of Nalini Garcia MD on 03/06/2025 at 12:13 PM EDT Sign off status: Pending * Provider: Varsha Garcia M.D. Date: 02/25/2025 Generated for Jackelin neal/Rita/Adrienneitting on: 03/06/2025 12:13 PM EDT
--- OUTSIDE RECORDS SUMMARY | 2025-03-06 12:13 | XMS_ITS | Patient Health Record ---
Author Organization [facility] Address [address] [id number] Care Team Providers [facility] Owner Name Role Phone Gaviota Frazier Unavailable [phone] Anatoly Garcia Unavailable [phone] Allergies Allergen (clinical drug ingredient) Drug/Non Drug Allergy documented on EMR Reaction Allergy Type Onset Date Status amoxicillin Amoxicillin anaphylaxis Drug Allergy A ctive erythromycin Erythromycin anaphylaxis Drug Allergy Active Penicillin anaphylaxis Drug Allergy Acti ve Results Component Value Reference Range Notes H-BMP Reviewed date:02/21/2025 09:26:55 PM Interpretation: Performing Lab: Notes/Report: NA 144 136-145 mmol/L K 2.5 3.5-5.1 mmoL/L CRITICAL RESULT Results called and read back/verified to: Emil NICK on 02/21/25 at 0807 By Danelle Blanchard CL 114 98-107 mmol/L CO2 25 22.0-30.0 mmol/L GAP 7.5 5-15 mEq/L BUN 8 7-17 mg/dl Delta: 11 on 02/20/25-1654 CREATT 0.50 0.52-1.04 mg/dl CRCLE 172 50-200 mL/min GFRAA 161 >60 ML/MIN EGFR 133 >60 ml/min GLU 96 74-100 mg/dl CA 8.6 8.4-10.2 mg/dl H-CBC Reviewed date:02/21/2025 09:26:54 PM Interpretation: Performing Lab: Notes/Report: WBC 10.3 4.8-10.8 K/mm3 Delta: 7.8 on 02/20/25-1653 RBC 3.42 4.20-5.40 M/mm3 HGB 11.3 12.2-16.2 g/dL Delta: 12.6 o n 02/20/25-1653 HCT 31.3 37.0-47.0 % MCV 91.5 81-99 fl MCH 33.0 27.0-31.2 pg MCHC 36.1 31.8-35.4 g/dL RDW-SD 45.1 RDW 13.3 11.5-17.5 % PLT 311 142-424 K/mm3 MPV 9.6 7.4-10.4 fl NE% 80.8 37.0-80.0 % LY% 11.9 10-50 % MO% 4.9 1.7-9.3 % EO% 1.7 0.1-12.0 % BA% 0.4 0.1-2.0 % NRBC% 0 IG% 0.3 NE# 8.3 1.8-7.8 K/mm3 LY# 1.2 0.7-4.5 K/mm3 MO# 0.5 0.1-1.0 K/mm3 EO# 0.2 0.0-0.4 Kmm3 BA# 0.0 0-0.2 K/mm3 NRBC# 0 IG# 0.03 H-CRE Screen Reviewed date:02/23/2025 09:04:55 AM Interpretation: Performing Lab: Notes/Report: CRE No growth. H-CBC Reviewed date:02/23/2025 09:04:55 AM Interpretation: Performing Lab: Notes/Report: WBC 12.0 4.8-10.8 K/mm3 RBC 3.95 4.20-5.40 M/mm3 HGB 12.8 12.2-16.2 g/dL Delta: 11.3 o n 02/21/25 HCT 38.9 37.0-47.0 % MCV 98.5 81-99 fl MCH 32.4 27.0-31.2 pg MCHC 32.9 31.8-35.4 g/dL RDW-SD 53.0 RDW 14.6 11.5-17.5 % PLT 287 142-424 K/mm3 MPV 9.8 7.4-10.4 fl NE% 78.1 37.0-80.0 % LY% 11.8 10-50 % MO% 6.7 1.7-9.3 % EO% 2.4 0.1-12.0 % BA% 0.7 0.1-2.0 % NRBC% 0 IG% 0.3 NE# 9.4 1.8-7.8 K/mm3 LY# 1.4 0.7-4.5 K/mm3 MO# 0.8 0.1-1.0 K/mm3 EO# 0.3 0.0-0.4 Kmm3 BA# 0.1 0-0.2 K/mm3 NRBC# 0 IG# 0.04 H-CMP Reviewed date:02/23/2025 09:04:55 AM Interpretation: Performing Lab: Notes/Report: NA 147 136-145 mmol/L K 4.0 3.5-5.1 mmoL/L Delta: 2.5 on 02/21/25 CL 123 98-107 mmol/L CO2 21 22.0-30.0 mmol/L GAP 7.0 5-15 mEq/L BUN 4 7-17 mg/dl Delta: 8 on CREATT 0.40 0.52-1.04 mg/dl CRCLE 212 50-200 mL/min GFRAA 209 >60 ML/MIN Delta: 161 on 02/21/25 EGFR 173 >60 ml/min GLU 99 74-100 mg/dl CA 7.7 8.4-10.2 mg/dl BILIT 0.5 0.2-1.3 mg/dl AST 50 14-36 U/L Delta: 28 on 02/20/25 ALT 22 12-78 U/L TP 5.9 6.3-8.2 g/dl ALB 3.3 3.5-5.0 g/dl GLOB 2.6 1.3-3.2 g/dL AGRATIO 1.3 1.1-1.8 ALP 74 38-126 U/L H-ABG Reviewed date:02/23/2025 09:04:55 AM Interpretation: Performing Lab: Notes/Report: Comment: obtain daily while on ventilator and as needed PHART 7.38 7.35-7.45 mmol/L [id number] 30.4 35.0-45.0 mmhg PO2ART 77.9 80-100 mmhg [id number] 17.7 22.0-26.0 mmhg [id number] 18.7 23-27 mmhg BEART -7.3 -2.4-2.3 mmol/L L3INPBCW 95 90-100 % O2 21 TVOL 410 VR 18 PEEP 5 SUSANA Patient Unable SOURCE Left Radial H-ABG Reviewed date:02/23/2025 09:04:54 AM Interpretation: Performing Lab: Notes/Report: Comment: obtain daily while on ventilator and as needed PHART 7.41 7.35-7.45 mmol/L [id number] 30.6 35.0-45.0 mmhg PO2ART 91.1 80-100 mmhg [id number] 18.9 22.0-26.0 mmhg BUZ5MTL 19.8 23-27 mmhg BEART -5.8 -2.4-2.3 mmol/L [id number] 97 90-100 % O2 21% TVOL 410 VR 18 PEEP 5 SUSANA Patient Unable SOURCE Right Brachial P-Basic Metabolic Panel (BMP ) Reviewed date:08/19/2024 09:16:06 AM Interpretation: Normal Performing Lab: Notes/Report: Test performed by [email or web address] [address] [place] [address] , [place] [address] Kush Lakhani MD, [employer] CLIA: [id number] Sodium 142 135-145 mmol/L Potassium 4.1 3.5-5.3 mmol/L Chloride 105 97-108 mmol/L CO2 28 22-32 mmol/L Glucose 69 65-99 mg/dL BUN 8 6-20 mg/dL Creatinine 0.74 0.50-1.00 mg/dL Calcium 9.4 8.6-10.4 mg/dL eGFR by Creatinine 102 >59 mL/min/1.73m2 P-T4 Free (thyroxine) Reviewed date:08/19/2024 09:16:07 AM Interpretation: Normal Performing Lab: Notes/Report: Test performed by [email or web address] [address] [place], [place] [address] , [address], [place] [address] Kush Lakhani MD, [employer] CLIA: [id number] Thyroxine Free (free T4) 1.60 0.86-1.76 ng/dL P-Lipid Panel Reviewed date:08/19/2024 09:16:07 AM Interpretation:non-hdl 138 Performing Lab: Notes/Report: [email or web address] [address], [place] [address] Kush aLkhani MD, [employer] CLIA: [id number] Cholesterol 197 <200 mg/dL Triglycerides 56 <150 [...] Interpretation:0.26 Performing Lab: Notes/Report: Test performed [email or web address] [address], [place] [address] Kush Lakhani MD, [employer] CLIA: [id number] TSH 0.26 0.43-5.25 mU/L H-BMP Reviewed date:02/25/2025 03:01:28 PM Interpretation: Performing Lab: Notes/Report: NA 140 136-145 mmol/L K 3.6 3.5-5.1 mmoL/L CL 114 98-107 mmol/L CO2 20 22.0-30.0 mmol/L GAP 9.6 5-15 mEq/L BUN 4 7-17 mg/dl CREATT 0.40 0.52-1.04 mg/dl CRCLE 219 50-200 mL/min GFRAA 209 >60 ML/MIN EGFR 173 >60 ml/min GLU 84 74-100 mg/dl CA 8.3 8.4-10.2 mg/dl Reason For Referral No Information Medications Medication SIG (Take, Route, Frequency, Duration) Notes Start Date End Date Status Nicotine 14 MG/24HR 1 patch to skin Transdermal Once a day Active Levothyroxine Sodium 100 MCG 1 tablet in the morning on an empty stomach Orally Once a day Active hydrOXYzine HCl 25 MG 1 tab Orally 4 fuad es a day, prn 01/28/2025 Active ZyPREXA 5 MG 2 tablets Orally Onc e a day Active Famotidine 20 MG 1 tab(s) orally 2 ti mes a day Active Gabapentin 300 MG 1 capsule Orally 3 t imes a day Active DULoxetine HCl 30 MG 1 capsule Orally On ce a day Active traZODone HCl 50 MG 1 tablet at bedtime as needed Orally Once a day Active Immunizations Vaccine Route Administration Date Status Comme nts Tetanus Tdap-Adacel (over 7yrs) Unknown 01/31/2016 Admi nistered Problems Problem Type SNOMED Code ICD Code Onset Dates Problem Status W/U Status Risk Notes Problem Hypothyroidism (57282837) Hypothyroidism (acquired) (E03.9) Active confirmed Problem Cervical radiculopathy (39969642) Cervical radiculopathy (M54.12) Active confirmed Problem Mixed anxiety and depressive disorder (590071444) Depression with anxiety (F41.8) Active confirmed Problem Affective psychosis (884602736) Unspecified mood [affective] disorder (F39) Active confirmed Problem Chronic pain (87751521) Other chronic pain (G89.29) Active confirmed Problem Thyroid nodule (247040025) Thyroid nodule (E04.1) Active confirmed Problem Panic disorder (655190191) Panic attacks (F41.0) Active confirmed Problem Gastroesophageal reflux disease (656142645) Gastroesophageal reflux disease, esophagitis presence not specified (K21.9) Active confirmed Problem Degeneration of cervical intervertebral disc (69272381) Degenerative cervical disc (M50.30) Active confirmed Problem Dysphagia (53748355) Dysphagia, unspecified type (R13.10) Active confirmed Problem Cannabis abuse (75508866) Marijuana abuse (F12.10) Active confirmed Problem 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 Vital Signs Heart Rate 110 /min 03/06/2025 Blood pressure diastolic 68 mm Hg 03/06/2025 Height 65 in 03/06/2025 Blood pressure systolic 128 mm Hg 03/06/2025 Weight 152 lbs 03/06/2025 BMI 25.29 kg/m2 03/06/2025 Encounters Encounter Location Date Provider Diagnosis [facility] [address] [place], [place] [id number] 08/18/2024 Anatoly Woosung Hypothyroidism (acqu ired) E03.9 ; Gastroesophageal reflux disease, esophagitis presence not specified K21.9 ; Cervical radiculopathy M54.12 and Acute left-sided low back pain without sciatica M54.50 [facility] [address] [id number] 01/28/2025 Gaviota Crowdy Depression with anxi ety F41.8 and Panic attacks F41.0 [facility] [address] [place], [place] [id number] 02/11/2025 Anatoly Woosung Unspecified mood [affective] disorder F39 ; Hypothyroidism (acquired) E03.9 and BMI 26.0-26.9,adult Z68.26 [facility] [address] [place] [id number] 03/06/2025 Anatoly Woosung Drug overdose of undetermined intent, subsequent encounter T50.904D ; Mood disorder F39 ; Chest pain, unspecified type R07.9 and Achilles tendinitis of right lower extremity M76.61 [facility] [address] [place], [place] [id number] 05/27/2024 Anatoly Woosung Cervical radiculopat hy M54.12 [facility] [address] [place], [place] [id number] 08/19/2024 Anatoly Woosung [facility] [address] [place], [place] [id number] 08/26/2024 Anatoly Woosung Cervical radiculopat hy M54.12 [facility] [address] [place], [place] [id number] 11/25/2024 Anatoly Woosung Cervical radiculopat hy M54.12 [facility] [address] [place], [place] [id number] 02/02/2025 Anatoly Woosung [facility] [address] [place], [place] [id number] 02/03/2025 Gaviota Crowdy [facility] [address] [place], [place] [id number] 02/09/2025 Gaviota Crowdy Panic attacks F41.0 and Unspecified mood [affective] disorder F39 [facility] [address] [place], [place] [id number] 02/10/2025 Gaviota Crowdy Encounter for screen ing for malignant neoplasm of breast Z12.31 and Colon cancer screening Z12.11 [facility] [address] [place], [place] [id number] 02/24/2025 Gaviota Crowdy [facility] [address] [place], [place] [id number] 03/03/2025 Gaviota Crowdy Assessments Encounter Date Diagnosis (ICD Code) Assessment Notes Treatment Notes Treatment Clinical Notes Section Notes 05/27/2024 Cervical radiculopathy (ICD-10 - M54.12) 08/18/2024 [...] Unspecified mood [affective] disorder (ICD-10 - F39) 03/06/2025 Mood disorder (ICD-10 - F39) 03/06/2025 Drug overdose of undetermined intent, subsequent encounter (ICD-10 - T50.904D) 03/06/2025 Chest pain, unspecified type (ICD-10 - R07.9) 02/11/2025 BMI 26.0-26.9,adult (ICD-10 - Z68.26) 02/09/2025 Unspecified mood [affective] disorder (ICD-10 - F39) 08/18/2024 Cervical radiculopathy (ICD-10 - M54.12) 08/18/2024 Acute left-sided low back pain without sciatica (ICD-10 - M54.50) Home exercise program provided to patient 03/06/2025 Achilles tendinitis of right lower extremity (ICD-10 - M76.61) Plan Of Treatment Pending Test Test Name Order Date colonoscopy 02/10/2025 CXR 03/06/2025 Mammogram 02/10/2025 Next Appt Details Provider Name:Anatoly weir, 03/06/2025 11:30:00 AM, [address], [place], [id number], Provider Name:Anatoly weir, 04/17/2025 11:30:00 AM, [address], [address], [place], [id number], Insurance Providers Payer Name Payer Address Payer Phone Subscriber Number Group Number Insured Name Patient Relationship to Insured Coverage Start Date Coverage End Date [employer] [facility] [address] [place] [id number] [phone] [id number] DEMETRIA PUENTE Self - patient is the [...]
--- NOTE | 2025-03-06 12:15 | XR_ITS ---
FINAL REPORT CLINICAL HISTORY: CHEST PAIN, recently intubated COMPARISON: 02/22/2025 FINDINGS: PA and lateral views of the chest were obtained. The cardiac and mediastinal silhouettes are within normal limits. The lungs are clear. There is no pleural effusion or pneumothorax. No acute osseous abnormality is identified. IMPRESSION: No radiographic evidence of acute cardiac or pulmonary disease. Reviewed, Interpreted and Dictated by Chey Estrada MD Transcribed by Violeta Healy Authenticated and [facility]
== END 2025-03-06 23:59 | disposition home or self-care (01) ==
LOC: RAD 12:11
PROVIDERS: PCP Family Medicine; Visit Provider Family Medicine
DX: R07.9 Chest pain, unspecified (principal)
CPT/HCPCS: 71046